=== PATIENT | female | born 1945 | race Hispanic/Latino ===

== ENCOUNTER 2017-11-03 13:21 | Emergency (ER) | payer MEDICARE ==
[~2017-11-03] VITALS: Ht 149.9 cm; Wt 59.0 kg
[~2017-11-03 13:21] MED LIST: LISINOPRIL20 MG PO
[2017-11-03] MEDS ORDERED: LIDOCAINE HCL 1% LOCAL INJ 20 ML VIAL ONE (13:58)
[2017-11-03] MEDS ORDERED: LIDOCAINE HCL 1% LOCAL INJ 20 ML VIAL INJ ONE (14:00)
== END 2017-11-03 14:39 | disposition home or self-care (01) ==
LOC: ER 13:24
DX: L02.415 Cutaneous abscess of right lower limb (principal)
CPT/HCPCS: 10060; 99282; J2001

== ENCOUNTER → 2017-11-14 | Outpatient (CLI) | payer MEDICARE, OTHER | LOC: MAMMO 13:35 | PROVIDERS: ATTEND Family Medicine | DX: Z12.31 Encounter for screening mammogram for malignant neoplasm of breast (principal) | CPT/HCPCS: 77067 ==

== ENCOUNTER 2018-01-05 18:43 | Inpatient (IN) | payer MEDICARE, OTHER ==
[~2018-01-05] VITALS: Ht 147.3 cm; Wt 59.0 kg
[2018-01-05] MEDS: KCL 20MEQ/.9 SOD CHL 1,000 ML IV SCH (01:00)
[2018-01-05] MEDS: LEVOFLOXACIN 500MG/D5W 100ML IV SCH (01:25)
[2018-01-05] MEDS: METRONIDAZOLE 500MG/NS 100ML 100 ML IV SCH (02:00)
--- OUTSIDE RECORDS SUMMARY | 2018-01-05 18:44 | XMS REPORT ---
Author Author [facility] Address Unknown Phone Unavailable Care Team Providers Care Recoater Name Role Phone SHIVANI SOMMER Unavailable Unavailable Problems This patient has no known problems. Allergies, Adverse Reactions, Alerts This patient has no known allergies or adverse reactions. Medications This patient has no known medications. Results Test Description Test Time Test Comments Text Results Atomic Results Result Comments MAMMOGRAPHY DIGITAL SCR BILAT [place] [id number] Patient Name: ARNAV PEMBERTON MR #: [id number] : 1945 Age/Sex: 72/F Req #: [id number] [facility] Physician: Ordered by: KEMAL TOWNSEND, SHIVANI Douglass MD Report #: [id number] Location: MAMMO Room/Bed: Procedure: [id number] MG/MAMMOGRAPHY DIGITAL SCR BILAT Exam Date: Exam Time: 1340 REPORT STATUS: Signed THIS REPORT HAS BEEN AMENDED. #[id number] - [id number] #BILATERAL DIGITAL SCREENING MAMMOGRAM WITH CAD: 11/14/2017 CLINICAL: Routine screening. No prior exams were available for comparison. Current study contains 5 films. The tissue of both breasts is heterogeneously dense. This may lower the sensitivity of mammography. Current study was also evaluated with a Computer Aided Detection (CAD) system. There is an amorphous grouped area of micro calcification in the left breast at 1 o'clock anterior depth. Scattered vascular calcification and areas of macro calcification are present in both breasts. No other significant masses, calcifications, or other findings are seen in either breast. IMPRESSION: INCOMPLETE: NEEDS ADDITIONAL IMAGING EVALUATION The amorphous calcification in the left breast is indeterminate. Spot magnification views are recommended. The patient will be contacted by the Mammography Department to schedule this appointment. It is known that the patient has had recent prior mammograms. If they become available for comparison then these additional views may not be necessary. Chantel Montiel Jr., D.O. cw/:11/30/2017 08:35: 48 Translation Director: Dionne ALBA(R)(Sonali), [facility] letter sent: Additional Imaging Needed Mammogram BI-RADS: 0 Indeterminate AMENDMENT: 12/15/2017 Chantel Montiel Jr., D.O. Comparison to outside mammograms dated 12/08/2015 and 09/12/2013 from [facility] is now possible as they have become available. The calcifications in question were present on the prior studies but have shown a slight increase in the amount. They remain punctate and have a benign appearance. No additional studies are necessary at this time. Amended BI-RADS: 2 Benign letter sent: Compared to Prior B9 Dictated By: CHANTEL MONTIEL DO 1046 Transcribed By: CARL on 9734 COPY TO: SHIVANI SOMMER
--- OUTSIDE RECORDS SUMMARY | 2018-01-05 18:44 | XMS REPORT | Continuity of Care Document ---
Author Author [facility] Organization [facility] Address [address] [place] [address] Phone Unavailable Care Team Providers Care Faculty Administrator Name Role Phone SHIVANI SOMMER PCP Insurance Providers Guarantor Margarita Briseno Address [address] [place] [address] Email PTDECLINED [facility] Policy Number [id number] Subscriber's Name Margarita Briseno Relationship 18 Self / Same As Patient Group Number [id number] Group Name RETIRED Effective Date 11 Advance Directives Directive Response Recorded Date/Time Does the patient have an advance directive? No 04/18/14 9:12pm If yes, is advance directive on file with [facility]? No 04/18/14 9:12pm If not on file with [facility] will patient provide a copy? No 04/18/14 9:12pm Do you have a Directive to Physician? No 11/03/17 2:42pm Do you have a Medical Power of Spool Cleaner Hand? No 11/03/17 2:42pm Do you have an out of hospital Do Not Resuscitate Order? No 11/03/17 2:42pm Do you have any special needs we should be aware of? No 11/03/17 2:42pm Do you have a support person here with you today? Yes 11/03/17 2:42pm Did patient receive Notice of Privacy Practices? Yes 11/03/17 2:42pm Did patient receive patient rights and responsibilities? Yes 11/03/17 2:42pm Problems No problem information available. Medications Current Home Medications Medication Dose Units Route Directions Days Qty Instructions Start Date Lisinopril (Prinavil / Zestril) 20 Mg Tablet 20 Mg Oral Daily Social History Smoking Status Start Date Stop Date Never Smoker Hospital Discharge Instructions No hospital discharge instruction information available. Plan of Care Discharge Date 11/03/17 2:39pm Disposition HOME, SELF-CARE Condition at Discharge Stable Instructions/Education Provided Rash - Nonspecific Forms Provided Work/School Excuse Prescriptions See Medication Section Referrals SHIVANI SOMMER Address: [address] [place] [address] [place] [id number] Functional Status No functional status information available. Allergies, Adverse Reactions, Alerts No allergy information available. Immunizations No immunization information available. Vital Signs Acute Vital Signs Vital Response Date/Time Height 4 ft 11 in 11/03/2017 1:23pm Weight 130 lb 11/03/2017 1:23pm Body Mass Index 26.3 kg/m^2 11/03/2017 1:23pm Results No relevant diagnostic test, laboratory data and/or discharge summary information available. Procedures Procedure Status Date Provider(s) X-ray of chest, two views Active 02/02/17 SHIVANI SOMMER Encounters Encounter Location Arrival/Admit Date Discharge/Depart Date Attending Provider Departed Emergency Room [facility] 11/03/17 1:24pm 2:39pm ANTONY BERMAN MD Registered Clinic [facility] 02/02/17 4:10pm SHIVANI SOMMER
[2018-01-05] MEDS ORDERED: OMEPRAZOLE40 MG PO (19:23)
[2018-01-05] MEDS ORDERED: POTASSIUM CHLO10 ME1 PO (19:23)
[2018-01-05] MEDS ORDERED: METOPROLOL-HCT1 EAC1 PO (19:23)
[2018-01-05 19:43] LABS: BASOPHILS % 0.4 % (0.0-1.0); EOSINOPHILS # (AUTO) 0.1 (0.0-0.4); HEMATOCRIT 34.9 % (34.2-44.1); HEMOGLOBIN 12.7 g/dL (12.0-16.0); LYMPHOCYTES # (AUTO) 2.5 (1.0-3.2); LYMPHOCYTES % 26.1 % (18.0-39.1); MEAN CORPUSCULAR HEMOGLOBIN 38.3 pg (28-32); MEAN CORPUSCULAR HGB CONC 36.4 g/dL (31-35); MEAN CORPUSCULAR VOLUME 105.1 fL (81-99); MONOCYTES # (AUTO) 1.2 (0.2-0.8); MONOCYTES % 12.9 % (4.4-11.3); NEUTROPHILS # (AUTO) 5.6 (2.1-6.9); NEUTROPHILS % 59.2 % (38.7-80.0); PLATELET COUNT 124 x10e3/uL (140-360); RED BLOOD COUNT 3.32 x10e6/uL (3.6-5.1); RED CELL DISTRIBUTION WIDTH 14.8 % (11.7-14.4)
[2018-01-05 20:05] LABS: ALBUMIN/GLOBULIN RATIO 0.5 (0.8-2.0); ANION GAP 14.5 mmol/L (8-16); CALCIUM 9.6 mg/dL (8.4-10.2); CREATININE, SERUM 0.98 mg/dL (0.57-1.11)
[2018-01-05 20:08] LABS: POTASSIUM 2.5 mmol/L (3.5-5.1)
[2018-01-05 20:13] LABS: CREATINE KINASE MB 0.4 ng/mL (0-5.0)
[2018-01-05 20:47] LABS: CLARITY,URINE SL CLOUDY (CLEAR); COLOR,URINE YELLOW (YELLOW); LEUKOCYTE ESTERASE ,URINE NEGATIVE (NEGATIVE); NITRITE,URINE NEGATIVE (NEGATIVE)
[2018-01-05 20:48] LABS: BILIRUBIN,URINE NEGATIVE (NEGATIVE); KETONES,URINE TRACE (NEGATIVE); PROTEIN,URINE DIPSTICK NEGATIVE (NEGATIVE); URINE UROBILINOGEN 1 mg/dL (0.2 - 1)
[2018-01-05] MEDS ORDERED: SODIUM CHLORIDE 0.9% 500ML 500 ML IV ONE (21:00)
[2018-01-05 21:03] LABS: BACTERIA,URINE MANY /HPF; EPITHELIAL CELLS,URINE MODERATE /LPF
[2018-01-05] MEDS ORDERED: POTASSIUM CHLORIDE 20 MEQ TAB CR PO STA (21:25)
[2018-01-05] MEDS ORDERED: POTASSIUM CHLORIDE 20MEQ/100ML 100 ML IV ONE (21:30)
--- NOTE | 2018-01-05 23:20 | Diagnostic Imaging Report ---
EXAM: CT Abdomen and Pelvis WITH contrast INDICATION: Abdominal pain. Weakness COMPARISON: None. TECHNIQUE: Abdomen and pelvis were scanned utilizing a multidetector helical scanner from the lung base to the pubic symphysis after administration of IV contrast. Coronal and sagittal reformations were obtained. Routine protocol was performed. Scan was performed when during portal venous phase. IV CONTRAST: 100 mL of Isovue-370 ORAL CONTRAST: Water RADIATION DOSE: Total DLP: ... mGy*cm Estimated effective dose: (DLP x 0.015 x size factor) mSv COMPLICATIONS: None FINDINGS: LINES and TUBES: None. LOWER THORAX: Unremarkable HEPATOBILIARY: No focal hepatic lesions. No biliary ductal dilation. GALLBLADDER: No radio-opaque stones or sludge. No wall thickening. SPLEEN: No splenomegaly. PANCREAS: No focal masses or ductal dilatation. ADRENALS: No adrenal nodules KIDNEYS/URETERS: Kidneys enhance symmetrically. No hydronephrosis. No cystic or solid mass lesions. No stones. GI TRACT: No abnormal distention, wall thickening, or evidence of bowel obstruction. There are diverticula within the colon with focal evidence of inflammation in the proximal ascending colon, best seen on series 2, image 48 and coronal image 40. Appendix is normal. PELVIC ORGANS/BLADDER: Unremarkable. LYMPH NODES: No lymphadenopathy. VESSELS: There is mild atherosclerotic disease in the aorta and major arterial branches. PERITONEUM / RETROPERITONEUM: No free air or fluid. BONES: There are mild degenerative changes in the lumbar spine. SOFT TISSUES: Unremarkable. IMPRESSION: 1. Colonic diverticulosis with focal diverticulitis at the proximal ascending colon. Signed by: Dr. oDn Hernández M.D. on 01/05/2018 11:16 PM
[2018-01-05] MEDS ORDERED: ONDANSETRON HCL INJ 2 MG/ML VIAL IV PRN (23:45)
[2018-01-05] MEDS ORDERED: MORPHINE SULFATE 2 MG/ML SYR IV PRN (23:45)
[2018-01-06] VITALS (9 sets, daily range): BP systolic 114–136; BP diastolic 55–62
[2018-01-06] MEDS ORDERED: SODIUM CHLORIDE 0.9% 250ML 250 ML ONE (00:41)
[2018-01-06] MEDS: METRONIDAZOLE 500MG/NS 100ML 100 ML IV SCH ×3 (06:23→21:13)
[2018-01-06 07:03] LABS: BASOPHILS % 0.4 % (0.0-1.0); EOSINOPHILS # (AUTO) 0.2 (0.0-0.4); EOSINOPHILS % 2.1 % (0.0-6.0); HEMATOCRIT 32.2 % (34.2-44.1); HEMOGLOBIN 11.5 g/dL (12.0-16.0); LYMPHOCYTES # (AUTO) 2.9 (1.0-3.2); LYMPHOCYTES % 30.6 % (18.0-39.1); MEAN CORPUSCULAR HEMOGLOBIN 38.1 pg (28-32); MEAN CORPUSCULAR HGB CONC 35.7 g/dL (31-35); MEAN CORPUSCULAR VOLUME 106.6 fL (81-99); MONOCYTES # (AUTO) 1.3 (0.2-0.8); MONOCYTES % 13.3 % (4.4-11.3); NEUTROPHILS % 53.3 % (38.7-80.0); PLATELET COUNT 99 x10e3/uL (140-360); RED BLOOD COUNT 3.02 x10e6/uL (3.6-5.1); RED CELL DISTRIBUTION WIDTH 14.9 % (11.7-14.4)
[2018-01-06 07:30] LABS: ALANINE AMINOTRANSFERASE 29 IU/L (0-55); ALBUMIN 2.6 g/dL (3.5-5.0); ALBUMIN/GLOBULIN RATIO 0.6 (0.8-2.0); ALKALINE PHOSPHATASE 214 IU/L (40-150); BLOOD UREA NITROGEN 11 mg/dL (7-26); BUN/CREATININE RATIO 17 (6-25); CALCIUM 8.7 mg/dL (8.4-10.2); CARBON DIOXIDE 26 mmol/L (22-29); CHLORIDE 102 mmol/L (98-107); CREATININE, SERUM 0.66 mg/dL (0.57-1.11); EST GLOMERULAR FILTRATION RATE > 60 ML/MIN (60-); GLUCOSE 102 mg/dL (74-118)
[2018-01-06 07:40] LABS: ANION GAP 12.8 mmol/L (8-16); SODIUM 138 mmol/L (136-145)
[2018-01-06 07:41] LABS: POTASSIUM 2.8 mmol/L (3.5-5.1)
[2018-01-06] MEDS: KCL 20MEQ/.9 SOD CHL 1,000 ML IV SCH ×2 (07:45→15:23)
[2018-01-06] MEDS ORDERED: POTASSIUM CHLORIDE 20 MEQ TAB CR PO STA (07:53)
[2018-01-06] MEDS ORDERED: MAGNESIUM SULFATE 2GM/50ML 50 ML IV ONE (10:45)
[2018-01-06] MEDS ORDERED: POTASSIUM CHLORIDE 20 MEQ TAB CR PO ONE ×3 (12:00→16:00)
[2018-01-07] MEDS: LEVOFLOXACIN 500MG/D5W 100ML IV SCH ×2 (00:30→23:57)
[2018-01-07] MEDS: KCL 20MEQ/.9 SOD CHL 1,000 ML IV SCH ×2 (00:30→07:14)
[2018-01-07 00:47] VITALS: BP 118/67
[2018-01-07 04:00] VITALS: BP 120/68
[2018-01-07] MEDS: METRONIDAZOLE 500MG/NS 100ML 100 ML IV SCH ×3 (05:31→22:00)
[2018-01-07 07:24] LABS: BASOPHILS % 0.4 % (0.0-1.0); EOSINOPHILS # (AUTO) 0.2 (0.0-0.4); EOSINOPHILS % 2.4 % (0.0-6.0); HEMOGLOBIN 10.6 g/dL (12.0-16.0); LYMPHOCYTES # (AUTO) 2.1 (1.0-3.2); LYMPHOCYTES % 26.7 % (18.0-39.1); MEAN CORPUSCULAR HEMOGLOBIN 37.6 pg (28-32); MEAN CORPUSCULAR HGB CONC 34.2 g/dL (31-35); MEAN CORPUSCULAR VOLUME 109.9 fL (81-99); MONOCYTES % 12.2 % (4.4-11.3); NEUTROPHILS # (AUTO) 4.5 (2.1-6.9); NEUTROPHILS % 57.9 % (38.7-80.0); PLATELET COUNT 89 x10e3/uL (140-360); RED BLOOD COUNT 2.82 x10e6/uL (3.6-5.1); RED CELL DISTRIBUTION WIDTH 15.6 % (11.7-14.4)
[2018-01-07 07:49] LABS: ALANINE AMINOTRANSFERASE 27 IU/L (0-55); ALBUMIN 2.4 g/dL (3.5-5.0); ALKALINE PHOSPHATASE 171 IU/L (40-150); BLOOD UREA NITROGEN 6 mg/dL (7-26); BUN/CREATININE RATIO 10 (6-25); CALCIUM 7.8 mg/dL (8.4-10.2); CARBON DIOXIDE 22 mmol/L (22-29); CHLORIDE 111 mmol/L (98-107); CREATININE, SERUM 0.61 mg/dL (0.57-1.11); EST GLOMERULAR FILTRATION RATE > 60 ML/MIN (60-); GLUCOSE 104 mg/dL (74-118); MAGNESIUM 1.6 MG/DL (1.3-2.1); SODIUM 137 mmol/L (136-145)
[2018-01-07 08:00] VITALS: BP 129/87
[2018-01-07 08:27] LABS: THYROID STIMULATING HORMONE 4.664 uIU/mL (0.350-4.940)
[2018-01-07] MEDS ORDERED: ACETAMINOPHEN 325 MG TAB PO PRN (09:45)
[2018-01-07] MEDS ORDERED: ACETAMINOPHEN/CODEINE 300MG - 30MG TAB PO PRN (09:45)
--- NOTE | 2018-01-07 12:49 | Diagnostic Imaging Report ---
EXAM: Complete Abdominal Ultrasound INDICATION: \S\abd ultrasound for elevated LFTs COMPARISON: CT dated 01/05/2018 TECHNIQUE: Transverse and longitudinal images of the upper abdomen were obtained. FINDINGS: Limited study due to bowel gas. Liver: Size: 15.3 cm in the right midclavicular line, normal Appearance: Normal echogenicity, minimal nodular contour Mass: No focal masses Spleen: Size: 10.5 cm in length, normal Echogenicity: Normal Mass: No focal masses Gallbladder: Stones/Sludge: Gallbladder sludge. Wall: 0.2 cm Appearance: No pericholecystic fluid or hydrops. Sonographic Alva's Sign: Negative Bile Ducts: Intrahepatic Ducts: No dilatation Extrahepatic Ducts: Common bile duct measures 0.3 cm, no dilatation Pancreas: Visualized pancreas is unremarkable. Right Kidney: Size: 8.8 cm Echogenicity: Normal Parenchymal thickness: Normal Collecting System: No hydronephrosis Stone: None Cyst/Mass: None Left Kidney: Size: 10.9 cm Echogenicity: Normal Parenchymal thickness: Normal Collecting System: No hydronephrosis Stone: None Cyst/Mass: None Vessels: Aorta: Visualized portions are normal Inferior Vena Cava: Visualized portions are normal Main Portal Vein: 0.9 cm, normal size with hepatopetal flow. Free Fluid: No ascites or pleural effusion IMPRESSION: Gallbladder sludge. No signs of cholecystitis. Minimal hepatic contour nodularity, suggestive of early cirrhotic changes. Signed by: Dr. Emmett Russo MD on 01/07/2018 12:46 PM
[2018-01-07 20:00] VITALS: BP 129/58
[2018-01-08 01:10] VITALS: BP 112/61
[2018-01-08 04:00] VITALS: BP 124/66
[2018-01-08] MEDS: METRONIDAZOLE 500MG/NS 100ML 100 ML IV SCH (06:23)
[2018-01-08 06:59] LABS: BASOPHILS % 0.3 % (0.0-1.0); EOSINOPHILS # (AUTO) 0.2 (0.0-0.4); EOSINOPHILS % 2.4 % (0.0-6.0); HEMATOCRIT 31.5 % (34.2-44.1); HEMOGLOBIN 10.8 g/dL (12.0-16.0); LYMPHOCYTES # (AUTO) 2.4 (1.0-3.2); LYMPHOCYTES % 27.1 % (18.0-39.1); MEAN CORPUSCULAR HGB CONC 34.3 g/dL (31-35); MEAN CORPUSCULAR VOLUME 110.9 fL (81-99); MONOCYTES % 10.9 % (4.4-11.3); NEUTROPHILS # (AUTO) 5.1 (2.1-6.9); PLATELET COUNT 90 x10e3/uL (140-360); RED BLOOD COUNT 2.84 x10e6/uL (3.6-5.1); RED CELL DISTRIBUTION WIDTH 15.7 % (11.7-14.4)
[2018-01-08 07:02] LABS: INR 1.58; PROTHROMBIN TIME 17.7 seconds (11.9-14.5)
[2018-01-08 07:03] LABS: PARTIAL THROMBOPLASTIN TIME 37.9 seconds (23.8-35.5)
[2018-01-08 07:16] LABS: ALANINE AMINOTRANSFERASE 29 IU/L (0-55); ALBUMIN 2.4 g/dL (3.5-5.0); ALKALINE PHOSPHATASE 191 IU/L (40-150); ANION GAP 9.8 mmol/L (8-16); BILIRUBIN,DIRECT 1.1 mg/dL (0.0-0.5); BLOOD UREA NITROGEN 6 mg/dL (7-26); BUN/CREATININE RATIO 9 (6-25); CALCIUM 8.2 mg/dL (8.4-10.2); CARBON DIOXIDE 22 mmol/L (22-29); CHLORIDE 111 mmol/L (98-107); CREATININE, SERUM 0.64 mg/dL (0.57-1.11); EST GLOMERULAR FILTRATION RATE > 60 ML/MIN (60-); GLUCOSE 105 mg/dL (74-118); POTASSIUM 3.8 mmol/L (3.5-5.1); SODIUM 139 mmol/L (136-145)
[2018-01-08 07:57] VITALS: BP 121/70
[2018-01-08 09:00] VITALS: BP 121/70
[2018-01-08 11:48] VITALS: BP 149/77
[2018-01-08] MEDS ORDERED: LEVAQUIN500 MG PO (12:57)
[2018-01-08] MEDS ORDERED: FLAGYL250 MG (12:59)
--- NOTE | 2018-01-08 16:25 | Discharge Summary ---
PRIMARY CARE DOCTOR: Dr. Shivani Sommer. FINAL DIAGNOSIS: Acute proximal ascending colon diverticulitis. SECONDARY DIAGNOSIS 1. Gallbladder sludge. 2. Possible early cirrhosis. 3. Mild liver function test abnormalities. 4. Mild coagulopathy. 5. Mild thrombocytopenia. CONSULTANTS: None. PROCEDURES/STUDIES PERFORMED 1. Computed tomography of the abdomen and pelvis. 2. Abdominal ultrasound. HISTORY: Per H\T\P. HOSPITAL COURSE: Patient was admitted with diverticulitis. IV Levaquin and Flagyl were started. The patient did well, currently tolerating p.o. No pain. Her hypokalemia was repleted. Patient was noted to have mild total bilirubin, alkaline phosphatase and thrombocytopenia. Therefore, abdominal ultrasound was done which is suggestive of early cirrhosis. Upon further questioning, patient drank about 3 beers every night to go to sleep. I have advised her to stop. Patient was seen and examined today. It took 32 minutes total to discharge this patient today. Patient will go home on Levaquin and Flagyl for 5 more days to complete a 1-week course. CONDITION ON DISCHARGE: Improved. DISCHARGE MEDICATIONS: Please see medication reconciliation form. WENDY LIVINGSTON M.D. Job#: [id number] EV cc:SHIVANI SOMMER MD
== END 2018-01-08 14:00 | disposition home or self-care (01) | DRG 392 ==
LOC: ER 18:43 → MED/SURG3 23:41 → ACU 01-08 11:36 → MED/SURG3 01-08 11:36
PROVIDERS: ADMIT Internal Medicine; ATTEND Internal Medicine
DX: K57.32 Diverticulitis of large intestine without perforation or abscess without bleeding (principal); D68.4 Acquired coagulation factor deficiency; K70.30 Alcoholic cirrhosis of liver without ascites; D69.59 Other secondary thrombocytopenia; E83.39 Other disorders of phosphorus metabolism; E87.6 Hypokalemia; E83.42 Hypomagnesemia
CPT/HCPCS: 36415; 74177; 76700; 80048; 80053; 80076; 81001; 82150; 82550; 82553; 83036; 83690; 83735; 84443; 84484; 85025; 85610; 85730; 93005; 96361; 99284; J1956; J3480; J7040; J7050

== ENCOUNTER 2018-12-05 14:06 | Observation (INO) | payer MEDICARE, OTHER ==
[~2018-12-05] VITALS: Ht 147.3 cm; Wt 29.9 kg
[~2018-12-05 14:06] MED LIST changes: +FLAGYL250 MG; +LEVAQUIN500 MG PO; +METOPROLOL-HCT1 EAC1 PO; +OMEPRAZOLE40 MG PO; +POTASSIUM CHLO10 ME1 PO
--- OUTSIDE RECORDS SUMMARY | 2018-12-05 14:09 | XMS REPORT | Encounter Summary ---
Author Organization Unknown Address [address] [place] [address] Phone [phone] Care Team Providers Care Transplant Worker Name Role Phone Dr. Itz Pozo 3 [phone] [facility] 2 [phone] Cliff Christie 107 [phone] Reason for Visit Bilateral ear pain/problem Instructions 1. Body mass index 25-29 - overweight learning about healthy weight 2. Immunization Shingrix Adjuvant Component (PF) intramuscular suspension 3. Lesion of external ear dermatology referral Discussion Note will refer to dermatology Plan of Care Reminders Provider Appointments Return to Office on or around 01/31/2019 Itz Kapoor MD Lab None recorded. Referral Dermatology Referral 11/28/2018 Procedures None recorded. Surgeries None recorded. Imaging None recorded. Medications Name Start Date metoprolol succinate ER 50 mg tablet,extended release 24 hr QD omeprazole 40 mg capsule,delayed release Take 1 capsule every day by oral route. rosuvastatin 10 mg tablet Take 1 tablet every day by oral route as directed for 90 days. Medications Administered None recorded. Vitals Height Weight BMI Blood Pressure 4 ft 11 in 133.8 lbs 27 kg/m2 128/64 mm[Hg] Lab Results Date Name Specimen Result Interpretation Description Value Range Status Address 11/01/2018 CBC W/ Auto Diff Wbc 6.23 x10*3/L 3.98-10.04 x10*3/L Final [facility] Laboratory: [address] Low Rbc 3.02 10*12/L 3.93-5.22 10*12/L Final [facility] Laboratory: [address] Hemoglobin 11.60 g/dL 11.20-15.70 g/dL Final [facility] Laboratory: [address] Low Hematocrit 33.1 % 34.1-44.9 % Final [facility] Laboratory: [address] [place] Mcv 109.6 fL 80.0-100.0 fL Final [facility] Laboratory: [address] [place] Mch 38.4 pg 25.6-32.2 pg Final [facility] Laboratory: [address] [place] Mchc 35.0 g/dL 32.2-35.5 g/dL Final [facility] Laboratory: [address] [place] High RDW-SD 66.4 fL 36.4-46.3 fL Final [facility] Laboratory: [address] [place] Low Platelet Count 101.0 k/uL 182.0-369.0 k/uL Final [facility] Laboratory: [address] [facility] Mpv 13.9 fL 7.5-11.5 fL Final [facility] Laboratory: [address] [place] Neut% 37.4 % 34.0-71.1 % Final [facility] Laboratory: [address] [place] Lymph% 44.6 % 19.3-51.7 % Final [facility] Laboratory: [address] [place], [facility] Mon% 15.7 % 4.7-12.5 % Final [facility] Laboratory: [address] [place] Eos% 1.8 % 0.7-5.8 % Final [facility] Laboratory: [address], [place] Baso% 0.5 % 0.1-1.2 % Final [facility] Laboratory: [address] [place] Neut# 2.3 x10*3/L 1.6-6.1 x10*3/L Final [facility] Laboratory: [address], [place] Lymph# 2.8 x10*3/L 1.2-3.7 x10*3/L Final [facility] Laboratory: [address] [facility] Mon# 1.0 x10*3/L 0.2-0.9 x10*3/L Final [facility] Laboratory: [address] [place] Eos# 0.11 x10*3/L 0.04-0.36 x10*3/L Final [facility] Laboratory: [address] [place] Baso# 0.03 x10*3/L 0.01-0.08 x10*3/L Final [facility] Laboratory: [address] [place] 11/01/2018 CMP, Serum or Plasma Alt 30 U/L 0-55 U/L Final [facility] Laboratory: [address] [place] Ast 65 U/L 5-34 U/L Final [facility] Laboratory: [address] [facility] Low Bun 7.6 mg/dL 9.8-20.1 mg/dL Final [facility] Laboratory: [address] [place] Alk Phos 271 unit/L 40-150 unit/L Final [facility] Laboratory: [address] [place] Glucose 92 mg/dL 70-99 mg/dL Final [facility]: [address] [facility] Low Albumin 2.8 g/dL 3.5-5.0 g/dL Final [facility] Laboratory: [address] [place] [address] Creatinine 0.81 mg/dL 0.57-1.11 mg/dL Final [facility] Laboratory: [address] [facility] eGFR Non- >60 mL/min/1.73m2 Final [facility] Laboratory: [address] [place] Total Bilirubin 2.3 mg/dL 0.2-1.2 mg/dL Final [facility] Laboratory: [address] [facility] e[facility] - >60 mL/min/1.73m2 Final [facility]: [address] [facility] Sodium 141 mEq/L 136-145 mEq/L Final [facility] Laboratory: [address] Potassium 4.2 mEq/L 3.5-5.1 mEq/L Final [facility] Laboratory: [address] [facility] High Chloride 109 mmol/L 98-107 mmol/L Final [facility] Laboratory: [address] [facility] Total Protein 8.7 g/dL 6.4-8.3 g/dL Final [facility] Laboratory: [address] [place] [address] Calcium 9.4 mg/dL 8.4-10.2 mg/dL Final [facility] Laboratory: [address], [place] Co2 23.9 mmol/L 23.0-31.0 mmol/L Final [facility] Laboratory: [address] Damon, [place] Anion Gap 8 calc Final [facility] Laboratory: [address] [facility], [place] 11/01/2018 Lipid Panel, Serum Low Hdl 29 mg/dL 40-60 mg/dL Final [facility] Laboratory: [address] [place] [address], [place] Triglyceride 146 mg/dL 0-149 mg/dL Final [facility] Laboratory: [address] [place] [address], [place] VLDL Calc. 29 mg/dL Final [facility] Laboratory: [address] [place] [address], [place] cholesterol/HDL Ratio 8.1 mg/dL Final [facility] Laboratory: [address] High non-HDL Cholesterol Calc. 205 mg/dL 0-160 mg/dL Final [facility] Laboratory: [address] [place] [address], [place] High Cholesterol 234 mg/dL 0-199 mg/dL Final [facility] Laboratory: [address] [place] [address], [place] High LDL Calc. 176 mg/dL 0-130 mg/dL Final [facility] Laboratory: [address] [place] [address], [place] Allergies Code Code System Name Reaction Severity Status Onset NKDA Problems Name Status Onset Date Source Gastroesophageal Reflux Disease Active 05/28/2018 Hyperlipidemia Active 11/01/2018 Hypertensive Disorder Active Procedures Date Name Performed by 07/31/2015 Colonoscopy Information not available 07/31/1992 Other Information not available 07/31/1974 Hysterectomy (Total) Information not available 07/31/1974 Tubal Ligation Information not available 11/01/2018 MAMMO, Screening, Digital, Bilateral [address] [address] (Work [address]) Vaccine List Vaccine Type influenza, high dose seasonal 05/28/20180.5 mL pneumococcal conjugate PCV 13 05/28/20180.5 mL Social History Smoking Status Never Smoker Past Encounters 11/28/2018 Body Mass Index 25-29 - Overweight; Immunization; Lesion of External Ear Pablo Jimenez MD: [address] [place] [address], Ph. 11/01/2018 Hypertensive Disorder; Hyperlipidemia; Screening for Malignant Neoplasm of Breast; Body Mass Index 25-29 - Overweight; Screening for Malignant Neoplasm of Colon; Alcohol Consumption Screening; Alcohol Intake above Recommended Sensible Limits; Depression Screening Positive; Thrombocytopenic Disorder; Alcohol Abuse; Major Depressive Disorder Itz Kapoor MD: [address] [place] [address], Ph. History of Present Illness Note:9 month h/o crusting lesion R ear lobe<div>6 week h/o painful crusting lesion L ear lobe</div> Review of Systems:ROS as noted in the HPI Review of Systems None recorded. Physical Exam General Adult Exam (Female) Reported By: Patient ENMT: Ears: external ear lesion; bl crusting lesions
--- OUTSIDE RECORDS SUMMARY | 2018-12-05 14:09 | XMS REPORT | Encounter Summary ---
Author Organization Unknown Address [address] [place] [address] Phone [phone] Care Team Providers Care Digital Performance Analyst Name Role Phone Dr. Itz Pozo 3 [phone] Cliff Christie 107 [phone] Reason for Visit Hyperlipidemia; Hypertensive disorder Instructions 1. Hypertensive disorder 2. Hyperlipidemia rosuvastatin 10 mg tablet CMP, serum or plasma lipid panel, serum 3. Screening for malignant neoplasm of breast MAMMO, screening, digital, bilateral 4. Body mass index 25-29 - overweight learning about healthy weight 5. Screening for malignant neoplasm of colon colonoscopy referral 6. Alcohol consumption screening learning about alcohol misuse 7. Alcohol intake above recommended sensible limits alcohol and drug problems: care instructions 8. Depression screening positive learning about depression learning about mood disorders 9. Thrombocytopenic disorder CBC w/ auto diff 10. Alcohol abuse 11. Major depressive disorder Discussion Note: None recorded. Plan of Care Reminders Provider Appointments Return to Office on or around 01/31/2019 Itz Kapoor MD Lab CBC W/ Auto Diff 11/01/[address] [facility] CMP, Serum or Plasma 11/01/[address] [facility] Lipid Panel, Serum 11/01/[address] [facility] Referral Colonoscopy Referral 11/01/2018 Procedures None recorded. Surgeries None recorded. Imaging MAMMO, Screening, Digital, Bilateral 11/01/2018 Medications Name Start Date metoprolol succinate ER 50 mg tablet,extended release 24 hr QD omeprazole 40 mg capsule,delayed release Take 1 capsule every day by oral route. potassium chloride ER 10 mEq capsule,extended release Take 1 capsule every day by oral route. appt reminder 09-26-2018 1:30 PM, Itz Kapoor 11/01/2018 rosuvastatin 10 mg tablet Take 1 tablet every day by oral route as directed for 90 days. Medications Administered None recorded. Vitals Height Weight BMI Blood Pressure 4 ft 11 in 128 lbs 25.9 kg/m2 (1) 140/76 mm[Hg] (2) 130/70 mm[Hg] Lab Results None recorded. Allergies Code Code System Name Reaction Severity Status Onset NKDA Problems Name Status Onset Date Source Gastroesophageal Reflux Disease Active 05/28/2018 Hyperlipidemia Active 11/01/2018 Hypertensive Disorder Active Procedures Date Name Performed by 07/31/2015 Colonoscopy Information not available 07/31/1992 Other Information not available 07/31/1974 Hysterectomy (Total) Information not available 07/31/1974 Tubal Ligation Information not available 11/01/2018 MAMMO, Screening, Digital, Bilateral Information not available Vaccine List Vaccine Type influenza, high dose seasonal 05/28/20180.5 mL pneumococcal conjugate PCV 13 05/28/20180.5 mL Social History Smoking Status Never Smoker Past Encounters 11/01/2018 Hypertensive Disorder; Hyperlipidemia; Screening for Malignant Neoplasm of Breast; Body Mass Index 25-29 - Overweight; Screening for Malignant Neoplasm of Colon; Alcohol Consumption Screening; Alcohol Intake above Recommended Sensible Limits; Depression Screening Positive; Thrombocytopenic Disorder; Alcohol Abuse; Major Depressive Disorder Itz Kapoor MD: [address] [place] [phone], Ph. History of Present Illness Note:F/u on HTN and HLD. Needs refills. Non compliant with meds. Non compliant with diet or exercise. Not checking BPs at home. No side effects with meds. No new concerns. Review of Systems Comprehensive General Adult ROS Reported By: Patient Constitutional: Constitutional: no fever Eyes: Eyes: no vision change ENMT: Ears: no ear pain. Nose: no sinus problems. Mouth/Throat: no sore throat Cardiovascular: Cardiovascular: no chest pain, no shortness of breath when walking, no shortness of breath when lying down, no palpitations, no lightheadedness Respiratory: Respiratory: no cough, no wheezing, no shortness of breath Gastrointestinal: Gastrointestinal: no abdominal pain, no nausea, no vomiting, no constipation, no diarrhea Musculoskeletal: Musculoskeletal: no muscle aches, no muscle weakness, no arthralgias/joint pain, no back pain, no swelling in the extremities Integumentary: Skin: no rashes Neurologic: Neurologic: no loss of consciousness, no headaches Psychiatric: Psych: no depression, no anxiety, no suicidal thoughts, alcohol abuse Endocrine: Endocrine: no fatigue Physical Exam General Adult Exam (male) Reported By: Patient Constitutional: General Appearance: healthy-appearing, overweight. Level of Distress: NAD. Ambulation: ambulating normally Psychiatric: Insight: good judgement. Mental Status: active and alert, normal mood, normal affect. Orientation: to time, to place, to person. Memory: recent memory normal, remote memory normal Eyes: Lids and Conjunctivae: non-injected, no discharge ENMT: Ears: TMs clear. Nose: no nasal discharge. Oropharynx: moist mucous membranes, no erythema Neck: Neck: trachea midline. Lymph Nodes: no cervical LAD Lungs: Respiratory effort: no dyspnea. Auscultation: breath sounds normal Cardiovascular: Heart Auscultation: RRR, normal S1, normal S2, no murmurs Abdomen: Inspection and Palpation: soft, non-distended, no tenderness, no guarding Musculoskeletal:: Motor Strength and Tone: normal, normal tone. Joints, Bones, and Muscles: normal movement of all extremities, no tenderness. Extremities: no edema Neurologic: Gait and Station: normal gait. Cranial Nerves: grossly intact. Coordination and Cerebellum: no tremor Skin: Inspection and palpation: ; mass in both ears. Non tender
[2018-12-05 14:50] LABS: BASOPHILS % 0.4 % (0.0-1.0); EOSINOPHILS # (AUTO) 0.1 (0.0-0.4); EOSINOPHILS % 2.5 % (0.0-6.0); HEMATOCRIT 33.7 % (34.2-44.1); HEMOGLOBIN 11.5 g/dL (12.0-16.0); LYMPHOCYTES # (AUTO) 2.3 (1.0-3.2); LYMPHOCYTES % 41.4 % (18.0-39.1); MEAN CORPUSCULAR HEMOGLOBIN 37.7 pg (28-32); MEAN CORPUSCULAR HGB CONC 34.1 g/dL (31-35); MEAN CORPUSCULAR VOLUME 110.5 fL (81-99); MONOCYTES # (AUTO) 0.5 (0.2-0.8); MONOCYTES % 9.3 % (4.4-11.3); NEUTROPHILS # (AUTO) 2.6 (2.1-6.9); PLATELET COUNT 87 x10e3/uL (140-360); RED BLOOD COUNT 3.05 x10e6/uL (3.6-5.1)
[2018-12-05 15:03] LABS: ALANINE AMINOTRANSFERASE 22 IU/L (0-55); ALBUMIN 2.3 g/dL (3.5-5.0); ALBUMIN/GLOBULIN RATIO 0.5 (0.8-2.0); ALKALINE PHOSPHATASE 225 IU/L (40-150); ANION GAP 12.7 mmol/L (8-16); BLOOD UREA NITROGEN 12 mg/dL (7-26); BUN/CREATININE RATIO 14 (6-25); CALCIUM 9.3 mg/dL (8.4-10.2); CARBON DIOXIDE 21 mmol/L (22-29); CHLORIDE 109 mmol/L (98-107); CREATININE, SERUM 0.85 mg/dL (0.57-1.11); EST GLOMERULAR FILTRATION RATE > 60 ML/MIN (60-); GLUCOSE 169 mg/dL (74-118); POTASSIUM 4.7 mmol/L (3.5-5.1); SODIUM 138 mmol/L (136-145)
[2018-12-05 15:32] LABS: BILIRUBIN,URINE NEGATIVE (NEGATIVE); CLARITY,URINE SL CLOUDY (CLEAR); COLOR,URINE YELLOW (YELLOW); KETONES,URINE NEGATIVE (NEGATIVE); LEUKOCYTE ESTERASE ,URINE NEGATIVE (NEGATIVE); NITRITE,URINE NEGATIVE (NEGATIVE); PROTEIN,URINE DIPSTICK NEGATIVE (NEGATIVE); URINE UROBILINOGEN 1 mg/dL (0.2 - 1)
[2018-12-05 15:40] LABS: BACTERIA,URINE MANY /HPF; EPITHELIAL CELLS,URINE FEW /LPF; WBC,URINE (MAN) 0-5 /HPF (0-5)
[2018-12-05] MEDS ORDERED: DIATRIZOATE MEGL/DIATRIZOA SOD 30 ML BTL PO ONE (17:54)
[2018-12-05] MEDS ORDERED: SODIUM CHLORIDE 0.9% 50ML 50 ML ONE (18:54)
[2018-12-05] MEDS ORDERED: IOPAMIDOL 370 MG/ML 200 ML INFUS..BTL INJ ONE (18:55)
--- NOTE | 2018-12-05 19:10 | NUR ---
RECEIVED REPORT FROM SUZIE RAE. PT GONE TO RADIOLOGY
--- NOTE | 2018-12-05 19:53 | Diagnostic Imaging Report ---
EXAMINATION: CHEST 2 VIEWS INDICATION: Shortness of breath with sputum. COMPARISON: 02/02/2017. FINDINGS: TUBES and LINES: None. LUNGS: Perihilar peribronchial thickening and perihilar streaky densities may reflect viral infection versus reactive airway disease. Patchy density in the retrocardiac region may represent atelectasis. PLEURA: No pleural effusion or pneumothorax. HEART AND MEDIASTINUM: Cardiac size is mildly enlarged. Bilateral hilar fullness may represent reactive lymphadenopathy. The aorta is tortuous and folded. BONES AND SOFT TISSUES: No acute osseous lesion. Soft tissues are unremarkable. UPPER ABDOMEN: No free air under the diaphragm. IMPRESSION: Perihilar, peribronchial thickening and perihilar streaky densities may reflect viral infection versus reactive airway disease. Bilateral hilar reactive lymphadenopathy. Signed by: Dr. Nehal Hearn M.D. on 12/05/2018 7:50 PM
--- NOTE | 2018-12-05 20:04 | Diagnostic Imaging Report ---
EXAM: CT Abdomen and Pelvis WITH contrast INDICATION: Lower abdominal pain. COMPARISON: 01/05/2018. TECHNIQUE: Abdomen and pelvis were scanned utilizing a multidetector helical scanner from the lung base to the pubic symphysis after administration of IV contrast. Coronal and sagittal reformations were obtained. Routine protocol was performed. Scan was performed when during portal venous phase. IV CONTRAST: 100 cc Isovue 370. ORAL CONTRAST: Water RADIATION DOSE: Total DLP: 319.63 mGy*cm Estimated effective dose: (DLP x 0.015 x size factor) mSv COMPLICATIONS: None FINDINGS: LINES and TUBES: None. LOWER THORAX: Unremarkable HEPATOBILIARY: Cirrhotic hepatic morphology. An 8 millimeter low-attenuation lesion in the medial segment of the left hepatic lobe is unchanged, most likely benign in etiology. No biliary ductal dilation. GALLBLADDER: There are stones in the gallbladder. No wall thickening. SPLEEN: No splenomegaly. PANCREAS: No focal masses or ductal dilatation. ADRENALS: No adrenal nodules KIDNEYS/URETERS: Bilateral cortical renal scarring, right greater than left. Kidneys enhance symmetrically. No hydronephrosis. No cystic or solid mass lesions. No stones. GI TRACT: No abnormal distention, wall thickening, or evidence of bowel obstruction. Colonic diverticulosis most markedly involving the sigmoid colon, with evaluation for diverticulitis limited due to the presence of ascites which obscures/simulates fat stranding. PELVIC ORGANS/BLADDER: Mild diffuse urinary bladder wall thickening is likely related to underdistention; cholecystitis is felt to be less likely. LYMPH NODES: No lymphadenopathy. VESSELS: Recanalized umbilical vein. There are perisplenic/perigastric collaterals, with esophageal varices. PERITONEUM / RETROPERITONEUM: Interval development of a small volume ascites. BONES: No acute osseous abnormality. SOFT TISSUES: Unremarkable. IMPRESSION: 1. Interval development of small volume ascites. 2. Colonic diverticulosis most markedly involving the sigmoid colon, with evaluation for diverticulitis limited due to the presence of ascites which obscures/simulates fat stranding. Correlate clinically. 3. Cholelithiasis. No biliary dilatation. 4. Evidence of portal hypertension, with collateral circulation, and esophagogastric varices. Signed by: Dr. Nehal Hearn M.D. on 12/05/2018 8:00 PM
[2018-12-05] MEDS ORDERED: MORPHINE SULFATE 2 MG/ML SYR 1ML IV PRN (20:45)
[2018-12-05] MEDS ORDERED: LEVOFLOXACIN 500MG/D5W 100ML IV SCH (20:45)
[2018-12-05] MEDS ORDERED: METRONIDAZOLE 500MG/NS 100ML IV SCH (20:45)
[2018-12-05] MEDS ORDERED: ONDANSETRON HCL INJ 2MG/ML 2ML 2 MG/ML VIAL IV PRN (20:45)
[2018-12-05] MEDS: METRONIDAZOLE 500MG/NS 100ML 100 ML IV SCH (21:40)
[2018-12-05] MEDS ORDERED: METOPROLOL SUCC50 MG PO (21:56)
[2018-12-05 22:05] VITALS: BP 177/71
[2018-12-05 22:20] VITALS: BP 177/71
[2018-12-05] MEDS: SODIUM CHLORIDE 0.9% 1000ML 1,000 ML IV SCH (22:20)
--- NOTE | 2018-12-05 22:20 | NUR ---
Received pt from er in a stretcher with c/o abd.pain.admission assessment done.aaox4.no resp.distress.on npo.iv #20 g to right ac.iv ns dripping 100ml/hr.abd pain voiced 02/06.oriented to the unit.bed locked and in lowest position.phone and call light within reach.informed to to call for assistance as needed.
[2018-12-05 22:40] VITALS: BP 177/71
[2018-12-05] MEDS: LEVOFLOXACIN 500MG/D5W 100ML 100 ML IV SCH (23:02)
[2018-12-05] MEDS: MORPHINE SULFATE INJ 4 MG/ML INJ 1ML IV PRN (23:23)
[2018-12-06] VITALS (7 sets, daily range): BP systolic 112–117; BP diastolic 53–58
[2018-12-06] MEDS: METRONIDAZOLE 500MG/NS 100ML 100 ML IV SCH ×4 (02:50→21:28)
--- NOTE | 2018-12-06 04:26 | NUR ---
AMBULATED AND VOIDED.NO PAIN VOICED.stable condition.
[2018-12-06] MEDS: SODIUM CHLORIDE 0.9% 1000ML 1,000 ML IV SCH ×2 (05:38→18:01)
[2018-12-06 06:36] LABS: BASOPHILS % 0.6 % (0.0-1.0); EOSINOPHILS # (AUTO) 0.1 (0.0-0.4); EOSINOPHILS % 2.5 % (0.0-6.0); HEMATOCRIT 31.6 % (34.2-44.1); HEMOGLOBIN 10.5 g/dL (12.0-16.0); LYMPHOCYTES # (AUTO) 1.9 (1.0-3.2); LYMPHOCYTES % 35.6 % (18.0-39.1); MEAN CORPUSCULAR HEMOGLOBIN 37.1 pg (28-32); MEAN CORPUSCULAR HGB CONC 33.2 g/dL (31-35); MEAN CORPUSCULAR VOLUME 111.7 fL (81-99); MONOCYTES # (AUTO) 0.7 (0.2-0.8); MONOCYTES % 13.9 % (4.4-11.3); NEUTROPHILS # (AUTO) 2.5 (2.1-6.9); NEUTROPHILS % 47.2 % (38.7-80.0); PLATELET COUNT 79 x10e3/uL (140-360); RED BLOOD COUNT 2.83 x10e6/uL (3.6-5.1); RED CELL DISTRIBUTION WIDTH 14.9 % (11.7-14.4)
--- NOTE | 2018-12-06 06:49 | NUR ---
Report given to the oncoming rn.walking rounds done.stable condition.
[2018-12-06 07:01] LABS: ALANINE AMINOTRANSFERASE 20 IU/L (0-55); ALBUMIN 2.1 g/dL (3.5-5.0); ALBUMIN/GLOBULIN RATIO 0.5 (0.8-2.0); ALKALINE PHOSPHATASE 172 IU/L (40-150); ANION GAP 10.6 mmol/L (8-16); BLOOD UREA NITROGEN 12 mg/dL (7-26); BUN/CREATININE RATIO 16 (6-25); CALCIUM 8.6 mg/dL (8.4-10.2); CARBON DIOXIDE 23 mmol/L (22-29); CHLORIDE 108 mmol/L (98-107); CREATININE, SERUM 0.73 mg/dL (0.57-1.11); EST GLOMERULAR FILTRATION RATE > 60 ML/MIN (60-); GLUCOSE 73 mg/dL (74-118); POTASSIUM 3.6 mmol/L (3.5-5.1); SODIUM 138 mmol/L (136-145)
[2018-12-06] MEDS ORDERED: ACETAMINOPHEN 325 MG TAB PO PRN (07:15)
[2018-12-06] MEDS ORDERED: HYDRALAZINE HCL 20 MG/ML VIAL IV PRN (07:15)
--- NOTE | 2018-12-06 07:19 | NUR ---
RECEIVED PATIENT ASLEEP IN BED, NO SIGNS OF DISTRESS AT THIS TIME. BED LOW, WHEELS LOCKED, SIDE RAILS X2, CALL LIGHT IN REACH. WILL CONTINUE TO MONITOR PATIENT.
[2018-12-06] MEDS: PANTOPRAZOLE SOD 40 MG TABEC PO SCH ×2 (07:30→07:57)
[2018-12-06] MEDS ORDERED: FAMOTIDINE 20 MG TAB PO SCH (07:30)
[2018-12-06] MEDS ORDERED: LORAZEPAM INJ 2 MG/ML VIAL IV PRN (07:45)
--- NOTE | 2018-12-06 09:00 | NUR ---
PATIENT A/O X3, EVEN RESPIRATIONS ON RA. BOWEL SOUNDS ACTIVE, SKIN INTACT. 1+ PITTING EDEMA TO BILAT FEET. PATIENT AMBULATORY VOIDS IN TOILET. PATIENT NPO AT THIS TIME. RIGHT AC 20 GAUGE IV WITH NS @ 100 CC/HR. NO SIGNS OF DISTRESS. VITAL SIGNS STABLE, WILL CONTINUE TO MONITOR PATIENT. EDUCATED PATIENT TO CALL FOR ASSISTANCE.
--- NOTE | 2018-12-06 11:50 | NUR ---
SPOKE WITH BIOINFORMATICS ASSOCIATE GENA. KEEP PATIENT NPO AT THIS TIME FOR POSSIBLE PARACENTESIS.
--- NOTE | 2018-12-06 12:36 | Diagnostic Imaging Report ---
EXAM: Limited abdominal ultrasound. INDICATION: Evaluate for ascites COMPARISON: CT 12/05/2018. TECHNIQUE: Transverse and longitudinal images of the 4 quadrants of the abdomen to evaluate for ascites was performed. FINDINGS: Small volume ascites is identified in all 4 quadrants. IMPRESSION: Small volume ascites. Signed by: Dr. Radha Atkinson MD on 12/06/2018 11:58 AM
[2018-12-06] MEDS ORDERED: CRESTOR10 MG PO (12:40)
[2018-12-06] MEDS ORDERED: ONDANSETRON HCL 4 MG ORAL DISINTEGRATING TAB PO PRN (13:45)
[2018-12-06] MEDS ORDERED: LORAZEPAM 0.5 MG TAB PO PRN (14:15)
--- NOTE | 2018-12-06 15:03 | NUR ---
Nutrition Screen Note RD Recommendation for Physician: -Continue current diet as ordered -Pt was not interested in any oral nutrition supplements -Rec MVi w/ thiamine and folic acid for alcoholism Plan of Care: RD following, monitoring for tolerance and adequacy Nutrition reason for involvement: Diagnosis Primary Diagnose(s): ascites, cirrhosis PMH: diverticulitis, cirrhosis, HTN, kidney stones Ht: 58in Wt: 130lb BMI: 27.2kg/m2 IBW: 90lb RD Assessment: (12/06) Chart reviewed. Labs and meds reviewed. 73yo F, who was admitted for abdominal discomfort. Abdomen US showed small volume ascites. Visited pt in the room. Pt reported poor appetite with decreased meal intake for 3 weeks. Unknown weight loss hx due to ascites and old medical record showed same weight (130lbs) on 12/2017. No physical sign of muscle and fat loss upon NFPA. Pt stated I am just not hungry. Pt still drinks about 2-3 beer every day. LBM 12/06. Pt denied any chewing or swallowing issue. Discussed alcohol cessation. Will continue to monitor and follow. Current Diet: cardiac diet Malnutrition Evaluation (12/06) The patient does not meet criteria for a specified degree of malnutrition at this time. Will re-evaluate at follow-up as appropriate. Diet Education Needs Assessment: Diet education not indicated. Nutrition Care Level: low Signed: Savannah Recinos MS, RD, LD
[2018-12-06 15:39] LABS: INR 1.43
[2018-12-06 15:40] LABS: PARTIAL THROMBOPLASTIN TIME 39.2 seconds (23.8-35.5)
--- NOTE | 2018-12-06 16:34 | NUR ---
PARACENTESIS BEING DONE AT THIS TIME AT BEDSIDE. PATIENT IN STABLE CONDITION. WILL CONTINUE TO MONITOR PATIENT.
--- NOTE | 2018-12-06 17:10 | NUR ---
PARACENTESIS COMPLETE. PATIENT TOLERATED WELL, NO SIGNS OF DISTRESS.
--- NOTE | 2018-12-06 17:24 | Consultation ---
DATE OF CONSULTATION: 12/06/2018 Psychiatric Consultation REASON FOR CONSULTATION: To evaluate the patient's mood and alcohol abuse. HISTORY OF PRESENT ILLNESS: The patient is a 73-year-old female admitted to the hospital for ascites and cirrhosis. Psychiatric consultation is called to evaluate the patient's mood. As per medical record, the patient has history of hypertension, urinary calculi, and abnormal mammogram. She presented to the ER for abdominal pain for last two weeks. The patient is found to be in the room. She is alert, awake, and oriented to situation. She becomes tearful stating that she has been feeling stressed, depressed and anxious due to generalized life stressor. She also reports feeling overwhelmed with her responsibility of being a mom. The patient states that she is feeling hopeless and helpless, but denies any passive wish. She denies any suicidal or homicidal ideation. She denies any hallucination. She reports feeling forgetful due to having to take care of many things at home. She reports poor sleep and poor appetite. The patient also reports she has been drinking every day, usually 2 or 3 beers a night, last was 2 days ago. No obvious tremor seen at this time. She is not confused at this time and she is calm and cooperative. PAST PSYCHIATRIC HISTORY: The patient denies past psychiatric history. She denies past suicide attempts. She denies drug use, but admits to drinking alcohol every day. FAMILY HISTORY: The patient denies. SOCIAL HISTORY: The patient states she lives with her granddaughter. MENTAL STATUS EXAM: The patient is an elderly female. She is alert, awake and oriented to situation. Her mood is depressed and anxious. She denies any suicidal or homicidal ideation. She denies any hallucination. Psychomotor state is passive. Affect is congruent with mood. No delusion elicited. Thought process is concrete. Insight and judgment are fair. Memory appears to be grossly intact. CURRENT MEDICATIONS: 1. Metronidazole/sodium chloride. 2. Protonix. 3. Morphine. 4. Levofloxacin/dextrose. 5. Sodium chloride. 6. Ondansetron. 7. Crestor. 8. Ativan 1 mg IV q.6 hours p.r.n. for withdrawal. 9. Hydralazine. 10. Acetaminophen. LABORATORY DATA: Current labs; WBC is 5.25, RBC 2.83, hemoglobin 10.5, hematocrit 31.6, platelets 79. Sodium 138, potassium 3.6, chloride 108, CO2 23, BUN 12, creatinine 0.73, AST is 53, ALT is 20. ASSESSMENT: 1. Major depressive disorder, single episode, moderate. 2. Alcohol abuse/dependency. PLAN: 1. Continue with Ativan 1 mg IV q.6 hours p.r.n. for withdrawal. 2. Add Remeron 15 mg p.o. at bedtime. 3. Add Ativan 0.5 mg p.o. q.6 hours p.r.n. for anxiety. 4. Monitor for mood. 5. Supportive therapy. 6. Recommend total abstinence from alcohol and staff genetic counselor given. 7. The patient states she would like the medication to help her stay sober. Thank you for this consultation. Dictated by Katerin Payne PA-C Dahlia Ko MD QTV/MODL /[id number]
--- NOTE | 2018-12-06 17:56 | Diagnostic Imaging Report ---
Procedure: Ultrasound-guided diagnostic and therapeutic paracentesis computer terminal operator: Radha Atkinson MD Pre-operative diagnosis: Small to moderate volume ascites. Post-operative diagnosis: Resolution of ascites. Local sedation. 10 cc of Lidocaine 1% for local anesthesia Additional medications: None. Estimated blood loss: None. Specimens: 1100 cc of cloudy fluid Implants: None TECHNIQUE/FINDINGS: Informed consent was obtained from the patient and documented in the medical record. The patient was placed in the supine position. Initial ultrasound demonstrated small to moderate volume ascites in a midline lower abdominal/pelvic location. The midline lower abdomen was prepped and draped in standard sterile fashion. 1% lidocaine was infiltrated into the skin and subcutaneous tissues for local anesthesia. Then under continuous sonographic guidance, a 5 Fr catheter was advanced into the peritoneal space. The catheter was connected to vacuum bottle with subsequent evacuation of 1100 cc of cloudy fluid. The catheter was removed. Sterile dressing was applied. Sample was sent to the lab. The patient tolerated the procedure well. IMPRESSION: Ultrasound-guided diagnostic and therapeutic paracentesis with removal of 1100 cc of cloudy fluid. Signed by: Dr. Radha Atkinson MD on 12/06/2018 5:53 PM
--- NOTE | 2018-12-06 20:10 | NUR ---
Aaox4.ambulates .voided.assessment done.no resp.distress.abd.pain voiced3/10.but denied pain medication.bed locked and in lowest position.phone and call light within reach.informed to call for assistance as needed.
[2018-12-06] MEDS: CRESTOR 10MG PO SCH (20:57)
[2018-12-06] MEDS: LEVOFLOXACIN 500MG/D5W 100ML 100 ML IV SCH (20:57)
[2018-12-06] MEDS ORDERED: MIRTAZAPINE 15 MG TAB PO SCH (21:00)
[2018-12-07] VITALS (8 sets, daily range): BP systolic 112–139; BP diastolic 55–71
[2018-12-07 01:20] LABS: BODY FLUID APPEARANCE CLOUDY; BODY FLUID COLOR YELLOW; BODY FLUID TYPE PERITONEAL
[2018-12-07 01:21] LABS: RBC,BODY FLUID 10989 cells/uL; WBC,BODY FLUID 4604 cells/uL
[2018-12-07 01:24] LABS: LYMPHOCYTES,BODY FLUID 98 %; MONO/MACROPHG,BODY FLUID 2 %; NEUTROPHILS,BODY FLUID 0 %
[2018-12-07] MEDS: CEFTRIAXONE SOD 1 GM/NS 50 ML 50 ML IV SCH ×2 (01:30→14:15)
[2018-12-07] MEDS: SODIUM CHLORIDE 0.9% 1000ML 1,000 ML IV SCH (03:20)
[2018-12-07] MEDS: METRONIDAZOLE 500MG/NS 100ML 100 ML IV SCH ×4 (03:25→21:23)
--- NOTE | 2018-12-07 03:30 | NUR ---
Blood osmin and sent to the lab.
[2018-12-07 03:49] LABS: BASOPHILS % 0.4 % (0.0-1.0); EOSINOPHILS # (AUTO) 0.1 (0.0-0.4); EOSINOPHILS % 2.2 % (0.0-6.0); HEMATOCRIT 28.5 % (34.2-44.1); HEMOGLOBIN 9.9 g/dL (12.0-16.0); LYMPHOCYTES # (AUTO) 1.8 (1.0-3.2); LYMPHOCYTES % 33.3 % (18.0-39.1); MEAN CORPUSCULAR HEMOGLOBIN 38.2 pg (28-32); MEAN CORPUSCULAR HGB CONC 34.7 g/dL (31-35); MONOCYTES # (AUTO) 0.8 (0.2-0.8); MONOCYTES % 14.5 % (4.4-11.3); NEUTROPHILS # (AUTO) 2.7 (2.1-6.9); NEUTROPHILS % 49.4 % (38.7-80.0); PLATELET COUNT 78 x10e3/uL (140-360); RED BLOOD COUNT 2.59 x10e6/uL (3.6-5.1); RED CELL DISTRIBUTION WIDTH 15.3 % (11.7-14.4)
[2018-12-07 04:10] LABS: ALANINE AMINOTRANSFERASE 18 IU/L (0-55); ALBUMIN 1.9 g/dL (3.5-5.0); ALKALINE PHOSPHATASE 153 IU/L (40-150); ANION GAP 10.8 mmol/L (8-16); BLOOD UREA NITROGEN 12 mg/dL (7-26); BUN/CREATININE RATIO 16 (6-25); CARBON DIOXIDE 21 mmol/L (22-29); CHLORIDE 112 mmol/L (98-107); CREATININE, SERUM 0.75 mg/dL (0.57-1.11); EST GLOMERULAR FILTRATION RATE > 60 ML/MIN (60-); GLUCOSE 80 mg/dL (74-118); MAGNESIUM 1.5 MG/DL (1.3-2.1); POTASSIUM 3.8 mmol/L (3.5-5.1); SODIUM 140 mmol/L (136-145)
[2018-12-07 04:31] LABS: FERRITIN 105.34 ng/mL (4.63-204.00)
[2018-12-07 05:11] LABS: FOLATE 13.8 ng/mL (7.0-15.4)
--- NOTE | 2018-12-07 06:50 | NUR ---
Report given to the oncoming rn.walking rounds done.stable condition.
[2018-12-07] MEDS: PANTOPRAZOLE SOD 40 MG TABEC PO SCH (08:30)
--- NOTE | 2018-12-07 09:16 | NUR ---
WITH STANDBY ASSIST, PT OOB TO BR TO "CLEAN UP", CLEAN GOWN AND SOCKS GIVEN, CALL STRING WITHIN REACH
[2018-12-07] MEDS ORDERED: HYDROXYZINE HCL 10 MG TAB PO PRN (15:45)
[2018-12-07] MEDS ORDERED: LEVOFLOXACIN 500 MG TAB PO SCH (18:00)
--- NOTE | 2018-12-07 20:14 | Progress Note ---
DATE: 12/07/2018 Psychiatric Progress Note SUBJECTIVE: The patient is surrounded by family members. She wanted Psychiatry to speak to her alone. The patient states that she has been feeling depressed. She becomes tearful. She does not know why she is feeling this way. She is having intermittent anxiety. She reports poor sleep last night. She reports poor appetite. She denies any problem with hallucination. She denies any suicidal ideation. She denies any side effects from medications. The patient is asking about her hydroxyzine p.r.n. ASSESSMENT AND PLAN: 1. Major depressive disorder with syncopal episode, moderate. 2. Alcohol abuse/dependency. 3. Increase Remeron to 30 mg p.o. at bedtime. 4. Discontinue Ativan p.r.n. p.o. 5. Add Atarax p.r.n. p.o. 6. Continue p.r.n. Ativan IV b.i.d. 7. Monitor for mood. 8. Supportive therapy. 9. Recommend outpatient psychiatry. Dictated by Katerin Payne PA-C Dahlia Ko MD QTV/MODL /[id number]
[2018-12-07] MEDS: MORPHINE SULFATE INJ 4 MG/ML INJ 1ML IV PRN (20:30)
[2018-12-07] MEDS ORDERED: MIRTAZAPINE 15 MG TAB PO SCH (21:00)
[2018-12-07] MEDS: CRESTOR 10MG PO SCH (21:23)
[2018-12-08 01:09] VITALS: BP 118/56
[2018-12-08] MEDS: CEFTRIAXONE SOD 1 GM/NS 50 ML 50 ML IV SCH ×2 (01:31→13:15)
--- NOTE | 2018-12-08 01:40 | NUR ---
UPON ROUNDS PATIENT RESTING COMFORTABLY, NO DISTRESS OBSERVED. ANTIBIOTIC INFUSING AT 100 ML/HR, PATIENT DENIES PAIN AT THIS TIME. BOTH SIDE RAILS ARE UP, BED LOW, CALL LIGHT WITHIN REACH WILL CONTINUE TO MONITOR.
[2018-12-08] MEDS: METRONIDAZOLE 500MG/NS 100ML 100 ML IV SCH ×2 (02:09→10:00)
[2018-12-08 04:21] LABS: BASOPHILS % 0.5 % (0.0-1.0); EOSINOPHILS # (AUTO) 0.1 (0.0-0.4); EOSINOPHILS % 2.3 % (0.0-6.0); HEMATOCRIT 29.6 % (34.2-44.1); HEMOGLOBIN 10.4 g/dL (12.0-16.0); LYMPHOCYTES # (AUTO) 2.4 (1.0-3.2); LYMPHOCYTES % 38.3 % (18.0-39.1); MEAN CORPUSCULAR HEMOGLOBIN 38.2 pg (28-32); MEAN CORPUSCULAR HGB CONC 35.1 g/dL (31-35); MEAN CORPUSCULAR VOLUME 108.8 fL (81-99); MONOCYTES # (AUTO) 0.9 (0.2-0.8); MONOCYTES % 13.9 % (4.4-11.3); NEUTROPHILS # (AUTO) 2.8 (2.1-6.9); NEUTROPHILS % 44.7 % (38.7-80.0); PLATELET COUNT 79 x10e3/uL (140-360); RED BLOOD COUNT 2.72 x10e6/uL (3.6-5.1); RED CELL DISTRIBUTION WIDTH 15.1 % (11.7-14.4)
[2018-12-08 04:40] LABS: ANION GAP 9.4 mmol/L (8-16); BLOOD UREA NITROGEN 9 mg/dL (7-26); BUN/CREATININE RATIO 13 (6-25); CARBON DIOXIDE 22 mmol/L (22-29); CHLORIDE 111 mmol/L (98-107); CREATININE, SERUM 0.71 mg/dL (0.57-1.11); EST GLOMERULAR FILTRATION RATE > 60 ML/MIN (60-); GLUCOSE 73 mg/dL (74-118); MAGNESIUM 1.4 MG/DL (1.3-2.1); POTASSIUM 3.4 mmol/L (3.5-5.1); SODIUM 139 mmol/L (136-145)
[2018-12-08 05:13] VITALS: BP 138/63
[2018-12-08 07:21] VITALS: BP 123/60
[2018-12-08] MEDS ORDERED: POTASSIUM CHLORIDE 20 MEQ TAB CR PO STA (07:56)
[2018-12-08] MEDS ORDERED: MIRTAZAPINE15 MG PO (08:03)
[2018-12-08] MEDS ORDERED: HYDROXYZINE HCL10 MG PO (08:03)
[2018-12-08] MEDS ORDERED: METRONIDAZOLE500 MG PO ×2 (08:09→08:41)
[2018-12-08] MEDS ORDERED: CEFTIN PO ×2 (08:09→08:41)
[2018-12-08] MEDS: PANTOPRAZOLE SOD 40 MG TABEC PO SCH (08:30)
[2018-12-08] MEDS ORDERED: REMERON30 MG PO (08:43)
[2018-12-08 10:12] VITALS: BP 123/60
--- NOTE | 2018-12-08 13:02 | NUR ---
SPOKE WITH GENA SLIP COVER ESTIMATOR WITH MD GARIBAY, MADE AWARE THAT PT C/O "SOB WHEN LYING DOWN", CHECKED PT SATS ON RA AT 96%, NO DISTRESS NOTED, DISCHARGE ORDERS TO BE FOLLOWED
[2018-12-08 13:39] VITALS: BP 128/60
--- NOTE | 2018-12-08 22:26 | Discharge Summary ---
ADMISSION DIAGNOSES: Ascites secondary to cirrhosis, hypertension, hyperlipidemia, gastroesophageal reflux disease, anxiety, depression, EtOH abuse, thrombocytopenia. DISCHARGE DIAGNOSES: Ascites secondary to cirrhosis, hypertension, hyperlipidemia, gastroesophageal reflux disease, anxiety, depression, EtOH abuse, thrombocytopenia, rule out gastrointestinal bleed, rule out urinary tract infection. PAST MEDICAL HISTORY: Hypertension, GERD, hyperlipidemia, EtOH abuse. PAST SURGICAL HISTORY: Tubal ligation, kidney stone surgery, and left breast biopsy. FAMILY HISTORY: The patient's daughter has diabetes. The patient's daughter also had a stroke. SOCIAL HISTORY: The patient admits to drinking about 3 beers a day for the last 12 years to help her go to sleep. HOSPITAL COURSE: A 73-year-old female complains of constant left flank and abdominal pressure that began 2 weeks ago. She denies nausea, vomiting, diarrhea, and fever. Pain is worse with movement and improved with lying down. She admits to drinking 3 beers a day to help her sleep. On admission, the patient had a CT of the abdomen that showed small volume ascites, colonic diverticulosis, cholelithiasis, evidence of portal hypertension with collateral circulation, and esophagogastric varices. Chest x-ray showed perihilar peribronchial thickening and perihilar streaky densities, may reflect viral infection versus reactive airway disease. The patient had an ultrasound-guided paracentesis with 1.1 L of cloudy fluid removed. Ascitic fluid showed 4604 wbc count. Stool for blood was negative. Urine culture negative. Psych doctor was consulted for anxiety, depression, alcohol abuse. The patient was started on Remeron and Atarax. GI was consulted, who ordered a CEA, AFP, and TB test. He is wanting to rule out malignancy and TB peritonitis. As all of those tests are pending and will take multiple days to come back, recommended the patient to discharge home and follow up with him next week. If anything is positive, she can be readmitted to the hospital at that point. The patient was discharged home with hydroxyzine, Remeron, , and Flagyl for 8 more days. The patient understands discharge instructions and agrees to plan. Vital signs stable and the patient afebrile. Dictated by Nessa Bucio, MIRIAN MD ALEJANDRA Limon/MODL /[id number]
== END 2018-12-08 14:44 | disposition home or self-care (01) ==
LOC: ER 14:06 → INTOOBSV 20:39 → ERHOLD 20:39 → MED/SURG 22:06
PROVIDERS: ADMIT Internal Medicine; ATTEND Internal Medicine
DX: K74.60 Unspecified cirrhosis of liver (principal); R18.8 Other ascites; K57.32 Diverticulitis of large intestine without perforation or abscess without bleeding; I10 Essential (primary) hypertension; Z87.442 Personal history of urinary calculi; K80.80 Other cholelithiasis without obstruction; K21.9 Gastro-esophageal reflux disease without esophagitis; E78.5 Hyperlipidemia, unspecified; Z83.3 Family history of diabetes mellitus; Z82.3 Family history of stroke; D69.6 Thrombocytopenia, unspecified; F41.9 Anxiety disorder, unspecified; F32.1 Major depressive disorder, single episode, moderate; F10.20 Alcohol dependence, uncomplicated
CPT/HCPCS: 36415 ×4; 49083; 71046; 74177; 74470; 76705; 80048 ×2; 80053 ×2; 80076; 81001; 82105; 82270; 82378; 82607; 82728; 82746; 82945; 83540; 83615; 83690; 83735 ×2; 83880 ×2; 84157; 84466; 84478; 85025 ×4; 85610; 85730; 87070; 87086; 87205; 88112; 88305; 89051; 96365; 96367; 99284; C1729; G0378 ×4; J0696 ×2; J1956 ×2; J2270 ×2; J2405; J7030 ×3; Q9967; S0164 ×3

== ENCOUNTER 2018-12-11 08:43 | Inpatient (IN) | payer MEDICARE, OTHER ==
[2018-12-11] VITALS (7 sets, daily range): BP systolic 111–130; BP diastolic 56–72
[~2018-12-11] VITALS: Ht 149.9 cm; Wt 58.1 kg
[~2018-12-11 08:43] MED LIST changes: +CEFTIN PO; +CRESTOR10 MG PO; +HYDROXYZINE HCL10 MG PO; +METOPROLOL SUCC50 MG PO; +METRONIDAZOLE500 MG PO; +MIRTAZAPINE15 MG PO; +REMERON30 MG PO
[2018-12-11 09:38] LABS: CLARITY,URINE SL CLOUDY (CLEAR); COLOR,URINE BROWN (YELLOW); LEUKOCYTE ESTERASE ,URINE 1+ (NEGATIVE); NITRITE,URINE POSITIVE (NEGATIVE); PROTEIN,URINE DIPSTICK 2+ (NEGATIVE)
[2018-12-11 09:39] LABS: BILIRUBIN,URINE 3+ (NEGATIVE); KETONES,URINE 1+ (NEGATIVE); URINE UROBILINOGEN 1 mg/dL (0.2 - 1)
[2018-12-11 09:43] LABS: BASOPHILS % 0.5 % (0.0-1.0); EOSINOPHILS # (AUTO) 0.1 (0.0-0.4); EOSINOPHILS % 1.2 % (0.0-6.0); LYMPHOCYTES # (AUTO) 2.1 (1.0-3.2); LYMPHOCYTES % 27.7 % (18.0-39.1); MEAN CORPUSCULAR HEMOGLOBIN 37.6 pg (28-32); MEAN CORPUSCULAR HGB CONC 35.3 g/dL (31-35); MEAN CORPUSCULAR VOLUME 106.6 fL (81-99); MONOCYTES % 13.5 % (4.4-11.3); NEUTROPHILS # (AUTO) 4.2 (2.1-6.9); NEUTROPHILS % 56.8 % (38.7-80.0); PLATELET COUNT 105 x10e3/uL (140-360); RED BLOOD COUNT 3.19 x10e6/uL (3.6-5.1); RED CELL DISTRIBUTION WIDTH 15.1 % (11.7-14.4)
[2018-12-11] MEDS ORDERED: MORPHINE SULFATE INJ 4 MG/ML INJ 1ML IV NR (09:45)
[2018-12-11] MEDS ORDERED: ONDANSETRON HCL INJ 2MG/ML 2ML 2 MG/ML VIAL IV NR (09:45)
[2018-12-11 09:48] LABS: BACTERIA,URINE FEW /HPF; EPITHELIAL CELLS,URINE MANY /LPF
[2018-12-11 09:57] LABS: INR 1.66; PROTHROMBIN TIME 20.2 seconds (11.9-14.5)
[2018-12-11 10:06] LABS: ALANINE AMINOTRANSFERASE 24 IU/L (0-55); ALBUMIN 2.4 g/dL (3.5-5.0); ALBUMIN/GLOBULIN RATIO 0.5 (0.8-2.0); ALKALINE PHOSPHATASE 203 IU/L (40-150); ANION GAP 10.2 mmol/L (8-16); BLOOD UREA NITROGEN 8 mg/dL (7-26); BUN/CREATININE RATIO 10 (6-25); CALCIUM 8.7 mg/dL (8.4-10.2); CARBON DIOXIDE 21 mmol/L (22-29); CHLORIDE 109 mmol/L (98-107); CREATININE, SERUM 0.81 mg/dL (0.57-1.11); EST GLOMERULAR FILTRATION RATE > 60 ML/MIN (60-); GLUCOSE 82 mg/dL (74-118); POTASSIUM 3.2 mmol/L (3.5-5.1); SODIUM 137 mmol/L (136-145)
[2018-12-11 10:26] LABS: CREATINE KINASE 54 IU/L (29-168); MAGNESIUM 1.4 MG/DL (1.3-2.1)
[2018-12-11] MEDS ORDERED: SODIUM CHLORIDE 0.9% 50ML 50 ML ONE (10:42)
[2018-12-11] MEDS ORDERED: IOPAMIDOL 370 MG/ML 200 ML INFUS..BTL INJ ONE (10:42)
--- NOTE | 2018-12-11 11:12 | Diagnostic Imaging Report ---
EXAMINATION: CT of the abdomen and pelvis with contrast. TECHNIQUE: Spiral CT images of the abdomen and pelvis were performed from the lung bases to the lesser trochanters after the intravenous administration of 100 cc Isovue-370. Coronal and sagittal reformatted images were obtained. COMPARISON: 12/05/2018 CLINICAL HISTORY:Right-sided abdominal pain, cirrhosis, ascites DISCUSSION: ABDOMEN/PELVIS: LOWER THORAX:Subsegmental atelectasis in the right middle lobe and bilateral lower lobes. Trace right pleural effusion. HEPATOBILIARY: 8 mm lesion in segment 4 is unchanged and remains too small to further characterize though likely benign. Nodular hepatic contour with relative hypertrophy of the left and caudate lobes. No additional focal hepatic lesion. No intrahepatic biliary ductal dilatation. Multiple radiopaque calculi in the dependent portion of the gallbladder. SPLEEN: No splenomegaly. PANCREAS: No focal masses or ductal dilatation. ADRENALS: No adrenal nodules. KIDNEYS/URETERS: Lobulated contour of the right kidney may be congenital or postinflammatory. Left kidney is unremarkable. No hydronephrosis or calculi. PELVIC ORGANS/BLADDER: Urinary bladder is collapsed and poorly evaluated. Uterus is anteflexed and appears normal. No adnexal mass. Tubal ligation devices. PERITONEUM/RETROPERITONEUM: Diffuse ascites, of average attenuation 0-5 Hounsfield units, similar in quantity to that described on 12/05/2018. No pneumoperitoneum. LYMPH NODES: No pelvic sidewall, retroperitoneal, or mesenteric lymphadenopathy. Mildly enlarged portacaval lymph node is unchanged. VESSELS: Abdominal aorta, major branch vessels, and iliac arterial systems are well-visualized and patent. The right hepatic artery is replaced to the superior mesenteric artery. Recanalization of the umbilical vein is noted, along with small gastric fundal and esophageal varices. Portal vein, splenic vein, and central superior mesenteric vein are patent. GI TRACT: As before, there are multiple diverticula along the descending and sigmoid colon. No gross wall thickening or distention. The appendix is poorly visualized. There is no small bowel dilatation to suggest obstruction. BONES AND SOFT TISSUE: Mild anasarca. No osseous destructive lesions. Multilevel degenerative disc changes and facet arthropathy of the thoracolumbar spine. IMPRESSION: Cirrhosis with portal hypertension evidenced by ascites, gastric-esophageal varices, and umbilical venous recanalization. Large bowel diverticulosis without specific findings of diverticulitis. Cholelithiasis without pericholecystic inflammation. Overall, similar findings to those described on 12/05/2018. Signed by: Dr. Stefan Sandoval M.D. on 12/11/2018 11:08 AM
[2018-12-11] MEDS ORDERED: CEFEPIME 1GM/NS 0.9% 50 ML 50 ML IV SCH (12:00)
[2018-12-11 12:29] LABS: AMYLASE 39 U/L (25-125); LIPASE 30 U/L (8-78)
[2018-12-11] MEDS ORDERED: MORPHINE SULFATE 2 MG/ML SYR 1ML IV PRN (12:30)
[2018-12-11] MEDS ORDERED: ONDANSETRON HCL INJ 2MG/ML 2ML 2 MG/ML VIAL IV PRN (12:30)
[2018-12-11] MEDS ORDERED: MORPHINE SULFATE INJ 4 MG/ML INJ 1ML IV PRN (12:45)
[2018-12-11] MEDS ORDERED: HYDROXYZINE HCL 10 MG TAB PO PRN (14:15)
[2018-12-11] MEDS ORDERED: ACETAMINOPHEN 325 MG TAB PO PRN (14:45)
[2018-12-11] MEDS ORDERED: HYDRALAZINE HCL 20 MG/ML VIAL IV PRN (14:45)
--- NOTE | 2018-12-11 14:47 | NUR ---
Patient transferred at this time by radiology nurse to have ultrasounded guided paracentesis.
--- NOTE | 2018-12-11 16:27 | Diagnostic Imaging Report ---
Date and Time: 12/11/2018 Procedure: Ultrasound-guided paracentesis shotgun shell reprinting unit operator: Dr. Sandoval Pre-operative diagnosis: Ascites Post-operative diagnosis: Ascites Conscious Sedation: None The patient's heart rate and pulse oximetry were continuously monitored by the interventional radiology nurse. Blood pressure was monitored at 5 minute intervals. Additional Medications: Lidocaine 1% for local anesthesia Estimated blood loss: Minimal Blood products administered: None Complications: No immediate Specimens: 525 cc cloudy fluid Implants: None Condition at completion: Stable Disposition: Returned to ER DISCUSSION: Informed consent was obtained and documented in the medical record after discussion of risks and benefits. The patient was placed in the supine position and the right abdominal wall was prepped and draped in the standard sterile fashion. A suitable percutaneous approach to a small amount of ascites in the right upper quadrant was identified and 1% lidocaine was infiltrated into the skin and subcutaneous tissues for local anesthesia. Then under continuous sonographic guidance a 5 Arabic Yueh needle catheter was advanced into the ascitic fluid. The catheter was advanced off the needle and connected to vacuum bottle with subsequent evacuation of 525 cc cloudy fluid. The catheter was removed and a sterile dressing was applied. The patient tolerated the procedure well without immediate complication. FINDINGS: Small volume ascites. IMPRESSION: Successful ultrasound-guided paracentesis with evacuation of 525 cc cloudy fluid. Specimen was submitted for laboratory analysis as requested by the referring clinical team. Signed by: Dr. Stefan Sandoval M.D. on 12/11/2018 4:24 PM
--- NOTE | 2018-12-11 16:32 | NUR ---
PATIENT ARRIVED ON THE UNIT AT 1610 FROM RADIOLOGY POST PARACENTESIS. PATIENT IS IN STABLE CONDITION WITH NO S/S OF RESPIRATORY DISTRESS. PATIENT DENIES PAIN. BED ALARM ON. CALL LIGHT IS WITHIN REACH, PATIENT INSTRUCTED TO CALL FOR ASSISTANCE NEEDED.
[2018-12-11 16:54] LABS: BODY FLUID APPEARANCE SL.CLOUDY; BODY FLUID COLOR STRAW; BODY FLUID TYPE PERITONEAL
--- NOTE | 2018-12-11 17:52 | NUR ---
PATIENT STATES SHE HAS BEEN HAVING LOOSE STOOLS SINCE 12/09/18. PATIENT AWARE OF NEED FOR STOOL SAMPLE- ITEMS PLACED IN PATIENT'S RESTROOM FOR COLLECTION OF STOOL. CONTACT ISOLATION PLACED UNTIL RESULTS.
[2018-12-11] MEDS ORDERED: POTASSIUM CHLORIDE 20 MEQ TAB CR PO ONE (18:00)
[2018-12-11 18:22] LABS: LYMPHOCYTES,BODY FLUID 3 %; MONO/MACROPHG,BODY FLUID 58 %
[2018-12-11 18:26] LABS: OTHER CELLS,BODY FLUID 39 %
[2018-12-11 18:46] LABS: RBC,BODY FLUID 613 cells/uL; WBC,BODY FLUID 23 cells/uL
--- NOTE | 2018-12-11 18:59 | NUR ---
PATIENT IS IN STABLE CONDITION WITH NO S/S OF RESPIRATORY DISTRESS. NO PAIN VOICED. BED ALARM ON. CALL LIGHT IS WITHIN REACH, PATIENT INSTRUCTED TO CALL FOR ASSISTANCE NEEDED. BEDSIDE REPORT GIVEN TO ONCOMING NURSE.
[2018-12-11] MEDS ORDERED: ALBUTEROL/IPRATROPIUM 3 ML NEB NEB SCH (19:00)
[2018-12-11] MEDS ORDERED: ALBUTEROL/IPRATROPIUM 3 ML NEB NEB PRN (19:00)
--- NOTE | 2018-12-11 19:15 | NUR ---
PER DR PHOENIX GOMEZ ALDACTONE 50MG PO DAILY IN THE MORNING AND LASIX 40MG PO DAILY AT NOON. WILL CONTINUE TO MONITOR.
--- NOTE | 2018-12-11 19:22 | NUR ---
PT IS RESTING IN BED. NO RESPIRATORY DISTRESS NOTED. BED IN THE LOWEST POSITION, LOCKED, BED ALARM ON, AND CALL LIGHT WITHIN REACH. WILL CONTINUE TO MONITOR.
[2018-12-11] MEDS ORDERED: NON-FORMULARY MEDICATION (Mirtazapine (Remeron) 30 MG) PO SCH (21:00)
[2018-12-11] MEDS ORDERED: MIRTAZAPINE 15 MG TAB PO SCH (21:00)
[2018-12-11] MEDS ORDERED: SODIUM CHLORIDE 0.9% 250ML 250 ML ONE (21:27)
[2018-12-11] MEDS: MIRTAZAPINE 15 MG TAB PO SCH (21:35)
[2018-12-11] MEDS: SIMVASTATIN 20 MG TAB PO SCH (21:35)
[2018-12-11] MEDS: CEFEPIME 1GM/NS 0.9% 50 ML 50 ML IV SCH (21:35)
[2018-12-12] VITALS (7 sets, daily range): BP systolic 117–130; BP diastolic 56–63
--- NOTE | 2018-12-12 00:20 | NUR ---
PER DR MILLER CHANGE PT DIET TO 2G SODIUM DIET. WILL CONTINUE TO MONITOR.
--- NOTE | 2018-12-12 01:05 | Consultation ---
DATE OF CONSULTATION: 12/11/2018 Psychiatric Consultation REASON FOR CONSULTATION: To evaluate the patient's depression and anxiety. HISTORY OF PRESENT ILLNESS: The patient came into the ER complaining of abdominal pain. She has history of hernia, cirrhosis, colitis, and low potassium, hypertension, GERD, and kidney stones. Upon evaluation today, the patient is found to be in the room. She is alert, awake, and oriented to situation. The patient continued to complain of depression, but denies any anxiety. She reports poor sleep last night and she claims that she has been taking Remeron at home. She reports feeling hopeless and helpless, but denies any suicidal or homicidal ideation. She denies any hallucination. She complained of poor appetite, though she is not agitated or combative. PAST PSYCHIATRIC HISTORY: She reports history of depression. She denies past suicide attempts. She reports drinking alcohol every day, 4 beers a day, last drink was on Monday. FAMILY HISTORY: Denies. SOCIAL HISTORY: The patient lives with her granddaughter. MENTAL STATUS EXAM: The patient is an elderly female. She is alert, awake, and oriented to situation. Her mood is depressed. Affect is congruent with mood. Thought process is concrete and linear. No delusion or paranoia elicited. Denies hallucination. Denies suicidal or homicidal ideation. Memory appears to be grossly intact. CURRENT MEDICATIONS: 1. Remeron 30 mg p.o. at bedtime. 2. Tylenol p.r.n. 3. Hydralazine. 4. Albuterol. 5. Simvastatin. 6. Protonix. 7. Metoprolol. 8. Atarax. 9. Cefepime. 10. Morphine. 11. Ondansetron. LABORATORY DATA: Current labs; WBC 7.47, RBC 3.19, hemoglobin 12, hematocrit 34.0, and platelets 105. Chemistry; sodium 137, potassium 3.2, chloride 109, CO2 of 21, BUN 8, creatinine 0.81. ASSESSMENT: 1. Major depressive disorder, recurrent, moderate. 2. Alcohol abuse/dependency. PLAN: 1. Plan is to increase Remeron to 45 mg p.o. at bedtime. 2. Continue with Atarax 10 mg p.o. q.6 hours p.r.n. 3. Recommend total abstinence from alcohol. 4. Monitor for mood. 5. Supportive therapy. Thank you for this consultation. Dictated by Katerin Payne PA-C Dahlia Ko MD QTV/MODL /[id number]
[2018-12-12] MEDS: CEFEPIME 1GM/NS 0.9% 50 ML 50 ML IV SCH ×3 (03:51→20:30)
[2018-12-12 04:00] LABS: BASOPHILS % 0.5 % (0.0-1.0); EOSINOPHILS # (AUTO) 0.1 (0.0-0.4); EOSINOPHILS % 1.3 % (0.0-6.0); HEMATOCRIT 31.8 % (34.2-44.1); HEMOGLOBIN 11.1 g/dL (12.0-16.0); LYMPHOCYTES # (AUTO) 2.6 (1.0-3.2); MEAN CORPUSCULAR HGB CONC 34.9 g/dL (31-35); MEAN CORPUSCULAR VOLUME 108.9 fL (81-99); MONOCYTES # (AUTO) 1.2 (0.2-0.8); MONOCYTES % 13.7 % (4.4-11.3); NEUTROPHILS # (AUTO) 4.5 (2.1-6.9); PLATELET COUNT 98 x10e3/uL (140-360); RED BLOOD COUNT 2.92 x10e6/uL (3.6-5.1); RED CELL DISTRIBUTION WIDTH 15.5 % (11.7-14.4)
[2018-12-12 04:12] LABS: INR 1.68; PROTHROMBIN TIME 20.4 seconds (11.9-14.5)
[2018-12-12 04:13] LABS: PARTIAL THROMBOPLASTIN TIME 42.2 seconds (23.8-35.5)
[2018-12-12 04:22] LABS: ALANINE AMINOTRANSFERASE 22 IU/L (0-55); ALBUMIN 2.1 g/dL (3.5-5.0); ALKALINE PHOSPHATASE 157 IU/L (40-150); ANION GAP 10.2 mmol/L (8-16); BILIRUBIN,DIRECT 1.6 mg/dL (0.0-0.5); BLOOD UREA NITROGEN 11 mg/dL (7-26); BUN/CREATININE RATIO 14 (6-25); CALCIUM 8.5 mg/dL (8.4-10.2); CARBON DIOXIDE 19 mmol/L (22-29); CHLORIDE 109 mmol/L (98-107); CREATININE, SERUM 0.78 mg/dL (0.57-1.11); EST GLOMERULAR FILTRATION RATE > 60 ML/MIN (60-); GLUCOSE 86 mg/dL (74-118); MAGNESIUM 1.5 MG/DL (1.3-2.1); SODIUM 134 mmol/L (136-145)
[2018-12-12 04:28] LABS: POTASSIUM 4.2 mmol/L (3.5-5.1)
[2018-12-12 04:35] LABS: B-TYPE NATRIURETIC PEPTIDE2 90.9 pg/mL (0-100)
--- NOTE | 2018-12-12 07:00 | NUR ---
RECEIVED PT RESTING IN BED EYES CLOSED RESPIRATIONS EVEN AND NON LABORED ON ROOM AIR NO S/S OF DISTRESS NOTED. CALL LIGHT WITHIN REACH. BED LOCKED AND IN LOWEST POSITION. WILL CONTINUE TO MONITOR.
[2018-12-12] MEDS: PANTOPRAZOLE SOD 40 MG TABEC PO SCH (08:28)
[2018-12-12] MEDS: METOPROLOL SUCCINATE 50 MG TAB XL PO SCH (08:28)
[2018-12-12] MEDS ORDERED: SIMVASTATIN 40 MG TAB PO SCH (09:00)
[2018-12-12] MEDS ORDERED: SPIRONOLACTONE 25 MG TAB PO SCH (09:00)
--- NOTE | 2018-12-12 09:00 | NUR ---
NOTIFIED MIRIAN AVERY WITH DR. GARIBAY PT HAS NOT HAD ANYMORE LOOSE BM PER PT REPORT. BM THIS MORNING WAS FORMED. RECEIVED ORDER TO D/C ORDER FOR CDIFF AND D/C CONTACT ISOLATION.
[2018-12-12] MEDS ORDERED: FUROSEMIDE 40 MG TAB PO SCH (12:00)
--- NOTE | 2018-12-12 14:37 | NUR ---
NOTIFIED MIRIAN AVERY WITH DR. GARIBAY REGARDING PVR OF 450 ML. NO NEW ORDERS AT THIS TIME DUE TO BLADDER SCAN COMPLETE 30 MIN AFTER VOID BECAUSE THAT IS WHEN NURSE WAS NOTIFIED BY PT THAT SHE VOIDED. WILL REASSESS PVR WITH NEXT VOID. INSTRUCTED TO NOTIFY NURSE OF VOID SOON VOIDING COMPLETE. PT VERBALIZED UNDERSTANDING.
--- NOTE | 2018-12-12 15:50 | NUR ---
NOTIFIED MIRIAN AVERY WITH DR. GARIBAY REGARDING PVR 553ML AFTER 900 ML VOID. RECEIVED ORDER FOR CONSULT DR. Geeta VELEZ FOR RETENTION.
--- NOTE | 2018-12-12 16:27 | NUR ---
LEFT MESSAGE WITH OFFICE STAFF REGARDING NEW CONSULT FOR DR. Geeta VELEZ. FAXED COVERSHEET TO [phone] PER REQUEST. Addendum: 12/12/18 at 1628 by Clara Champion RN [place], FAXED FACESHEET.
--- NOTE | 2018-12-12 17:12 | NUR ---
Nutrition Screen Note RD Recommendation for Physician: -Continue current diet as ordered -Pt was not interested in any oral nutrition supplements -Rec MVi w/ thiamine and folic acid for alcoholism Plan of Care: RD following, monitoring for tolerance and adequacy, diet education Nutrition reason for involvement: Hx of cirrhosis, readmission for similar issue Primary Diagnose(s): abdominal pain, alcohol abuse, bacterial peritonitis PMH: diverticulitis, cirrhosis, HTN, kidney stones Ht: 58in Wt: 128lb BMI: 25.9kg/m2 IBW: 95lb RD Assessment: (12/12) Chart reviewed. Labs and meds reviewed. 73yo F, who was admitted for abdominal pain. Pt was well known to me during her last hospital admission (discharged on 12/08). Pt reported some improvement in her appetite with ~50% meal intake. No complains of nausea or vomiting. Pt denied any chewing or swallowing difficulty. Pt has been trying to quit alcohol. Pt was not interested in ONS. RD offered diet education on cirrhosis. Pt verbalized understanding. All questions have been answered. Will continue to monitor and follow. Current Diet: 2g sodium diet Malnutrition Evaluation (12/12/2018) The patient does not meet criteria for a specified degree of malnutrition at this time. Will re-evaluate at follow-up as appropriate. Diet Education Needs Assessment: Diet education indicated, pt was agreeable with plan. Learner(s): pt Time spent: 15minutes Barriers: No barriers identified. Cultural/Language Modifications: No cultural/language modifications noted. Pt speaks Portuguese. Readiness: Acceptance Method: Handouts, explanation Topics: Cirrhosis nutrition therapy (low sodium, tips in increasing PO intake, alcohol cessation, MVi w/minerals) Understanding/Compliance: Expect fair understanding/compliance from pt. Will benefit from reinforcement. All questions have been answered. Nutrition Care Level: low Signed: Savannah Recinos, MS, RD, LD
--- NOTE | 2018-12-12 18:36 | NUR ---
35 ML URINE OUTPUT WITH RAMIREZ CATHETER PLACEMENT. SAMPLE COLLECTED FOR URINE CULTURE AND SENT TO LAB.
--- NOTE | 2018-12-12 18:45 | NUR ---
NOTIFIED DR. Geeta VELEZ REGARDING 35 ML URINE OUTPUT AFTER RAMIREZ CATHETER INSERTION. STATES D/C RAMIREZ BLADDER SCAN POSSIBLY PICKED UP ASCITES. PT STILL NEEDS TO F/U FOR URODYNAMICS STUDIES AFTER D/C HOME.
--- NOTE | 2018-12-12 19:20 | NUR ---
Completed bedside rounds with morning nurse. Pt alert and orient to name. Lying in HOB 45 degrees. Denies pain at this time. Informed Betancourt will be removed tonight. Call bella within reach. Will continue to monitor.
[2018-12-12] MEDS: MIRTAZAPINE 15 MG TAB PO SCH (21:06)
[2018-12-12] MEDS: SIMVASTATIN 20 MG TAB PO SCH (21:06)
--- NOTE | 2018-12-12 21:07 | NUR ---
16 Fr Betancourt cath d/c'd per doctor's order. 10mL of water from balloon. Catheter removed without difficulty, catheter tip intact. Pt instructed to notify nurse of first void.
[2018-12-13] VITALS (8 sets, daily range): BP systolic 110–128; BP diastolic 55–60
--- NOTE | 2018-12-13 00:56 | Consultation ---
DATE OF CONSULTATION: 12/12/2018 Thank you, Dr. Riley for this consultation. HISTORY OF PRESENT ILLNESS: She is a very pleasant woman with past medical history includes hyperlipidemia, hypertension, history of chronic liver disease, liver cirrhosis, GERD, kidney stone, depression, and history of alcohol abuse. She is admitted through emergency with right upper quadrant, right abdomen, and right lower quadrant pain. She was also complaining of abdominal distention. She has poor appetite. She denies any nausea, vomiting, or loose motion. No fever or chills reported. She has CT abdomen that shows multiple gallstones. She also has low platelet counts. She was recently hospitalized. At that time, she has CEA level, which was high. The patient's coagulation profile also mildly elevated. The patient is currently in hospital for further management. PAST MEDICAL HISTORY: Include colonic liver disease/cirrhosis, hypertension, kidney stones, and GERD. PAST SURGICAL HISTORY: Include breast surgery, lithotripsy, tubal ligation, and history of paracentesis. ALLERGIES: PER NURSING LIST. MEDICATION LIST: Reviewed. SOCIAL HISTORY: The patient has history of alcohol on daily basis. FAMILY HISTORY: Positive with hypertension. REVIEW OF SYSTEMS: As per the HPI. PHYSICAL EXAMINATION: GENERAL: Alert, awake, communicative. HEENT: Normocephalic, atraumatic. Sclerae anicteric. Conjunctiva clear. NECK: Supple. CHEST: Decreased breath sounds at bases. CARDIOVASCULAR: Regular rate and rhythm. ABDOMEN: Soft and distended. Positive fluid wave. EXTREMITIES: 1+ edema. ORTHODONTIC BAND MAKER: Intact. LABORATORY AND IMAGING DATA: Reviewed. ASSESSMENT AND PLAN: The patient with history of chronic liver disease, admitted with possible gallbladder stone, ascites, portal hypertension, and depression. The patient's recent CAT scan showed multiple gallstones. She has a thrombocytopenia and her recent hospital admission showed elevated CEA level. Elevated CEA level is likely because of ascites. So far, no other evidence of any GI malignancy. RECOMMENDATIONS: Close observation. Thrombocytopenia. Likely etiology of chronic liver disease causing decreased production of thrombopoietin, increased destruction of platelets through the spleen. No evidence of any active bleeding. We will follow the patient closely. MD MARY Wade/TERESA /[id number]
[2018-12-13] MEDS: CEFEPIME 1GM/NS 0.9% 50 ML 50 ML IV SCH ×3 (04:00→21:00)
--- NOTE | 2018-12-13 04:17 | Consultation ---
DATE OF CONSULTATION: 12/12/2018 Urology Consultation REASON FOR CONSULTATION: Urinary retention. HISTORY OF PRESENT ILLNESS: Margarita Briseno is a 73-year-old woman, who was admitted for abdominal pain. The patient has a long urological history. She had urinary tract infections when she was younger. The patient had history of kidney stones and underwent what sounds like a left percutaneous nephrostolithotomy at [facility] over 10 years ago. The patient also has both stress and urge type urinary incontinence. The patient has ascites to cirrhosis and has undergone two paracentesis in the last week. The patient's voiding was evaluated and immediately after voiding 900 mL, bladder scanner revealed a postvoid residual of 500 mL. I had requested the nurse to place a Betancourt catheter in the patient. When the nurse did, she obtained a volume of only 35 mL with a Betancourt catheter. PAST MEDICAL AND SURGICAL HISTORY: 1. 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 2. 5, para 5, by normal spontaneous vaginal delivery. 3. Bilateral tubal ligation. 4. Status post left breast biopsy, which was negative for carcinoma. 5. Depression. 6. Colitis. 7. Hypertension. 8. Gastroesophageal reflux disease. CURRENT MEDICATIONS: Please refer to the MAR. ALLERGIES: PLEASE REFER TO THE MAR. SOCIAL HISTORY: The patient denies smoking and drug use. The patient used to clean houses. She drinks at least four beers per day. FAMILY HISTORY: Noncontributory to the active urological problems. REVIEW OF SYSTEMS: Consistent with above history of present illness and past medical history, otherwise negative for all systems. PHYSICAL EXAMINATION: GENERAL: A pleasant 73-year-old woman lying in bed, in no apparent distress, is currently afebrile. VITAL SIGNS: Currently stable. ABDOMEN: Soft. It is distended and full and significant for obvious ascites. No obvious hernia. GENITOURINARY: Normal external female genitalia. Internal examination is deferred. For the remaining physical examination systems, please refer to the admission history and physical on the chart in the ERT sheet. LABORATORY STUDIES: CT scan of the abdomen and pelvis was done yesterday, it reveals a lobulated contour of the right kidney, which may be congenital, of course inflammatory. Left kidney was unremarkable. There are no stones noted. This was a contrasted study. Diffuse ascites was noted. Preliminary urine culture was negative. White blood cell count is 8440, hemoglobin is 11.1, platelets are low at 98,000. The patient's sodium is low at 134, creatinine is normal at 0.78, magnesium is normal at 1.8, calcium is normal at 8.5. Urinalysis significant for 6-10 WBCs with many epithelial cells and few bacteria consistent with a non-clean catch urinary specimen. ASSESSMENT: 1. History of urolithiasis. 2. Mixed type urinary incontinence. 3. Possibly urinary tract infection with this non-clean catch urinary specimen. 4. Anemia. 5. Thrombocytopenia. 6. Hyponatremia. 7. Incomplete bladder emptying, but no evidence of true urinary retention. The result of the bladder scanner is incorrect due to the fact that the bladder scan is calculating ascites fluid as urine. The Betancourt catheter definitely makes this distinction with only 35 mL as a postvoid residual. PLAN: 1. No Betancourt catheter. 2. The patient is to follow up for an outpatient urodynamic study. 3. Metabolic stone workup is in order as well as ongoing urological followup for the patient's history of significant urolithiasis or required significant intervention. 4. At some point future renal scan will be obtained to evaluate the differential renal function in light of the scarring of one of the kidneys. Thank you very much for involving us in the care of your patient. We will be happy to follow along with you as well as an outpatient. Robert Siddiqui MD [place]/MODL /[id number] cc: Itz Kapoor MD
[2018-12-13] MEDS: FUROSEMIDE 40 MG TAB PO SCH ×2 (06:00→18:04)
[2018-12-13 06:29] LABS: BASOPHILS % 0.4 % (0.0-1.0); EOSINOPHILS # (AUTO) 0.2 (0.0-0.4); EOSINOPHILS % 2.2 % (0.0-6.0); HEMATOCRIT 27.7 % (34.2-44.1); LYMPHOCYTES # (AUTO) 2.6 (1.0-3.2); LYMPHOCYTES % 37.6 % (18.0-39.1); MEAN CORPUSCULAR HGB CONC 36.1 g/dL (31-35); MEAN CORPUSCULAR VOLUME 105.3 fL (81-99); MONOCYTES # (AUTO) 1.1 (0.2-0.8); MONOCYTES % 15.2 % (4.4-11.3); NEUTROPHILS % 44.2 % (38.7-80.0); PLATELET COUNT 100 x10e3/uL (140-360); RED BLOOD COUNT 2.63 x10e6/uL (3.6-5.1); RED CELL DISTRIBUTION WIDTH 15.3 % (11.7-14.4)
--- NOTE | 2018-12-13 06:58 | NUR ---
Pt lying in bed HOB 30 degrees. Denies pain at this time. No distress noted.
[2018-12-13 07:04] LABS: ANION GAP 7.3 mmol/L (8-16); BLOOD UREA NITROGEN 10 mg/dL (7-26); BUN/CREATININE RATIO 15 (6-25); CALCIUM 8.2 mg/dL (8.4-10.2); CARBON DIOXIDE 24 mmol/L (22-29); CHLORIDE 108 mmol/L (98-107); CREATININE, SERUM 0.68 mg/dL (0.57-1.11); EST GLOMERULAR FILTRATION RATE > 60 ML/MIN (60-); GLUCOSE 69 mg/dL (74-118); MAGNESIUM 1.5 MG/DL (1.3-2.1); POTASSIUM 3.3 mmol/L (3.5-5.1); SODIUM 136 mmol/L (136-145)
[2018-12-13 07:07] LABS: ALBUMIN 1.9 g/dL (3.5-5.0); BILIRUBIN,DIRECT 1.5 mg/dL (0.0-0.5)
--- NOTE | 2018-12-13 07:08 | NUR ---
pt alert resp even and unlabored at this time no distress noted pot able to make needs known no c/o pain when asked, call light in reach.
[2018-12-13] MEDS: SPIRONOLACTONE 25 MG TAB PO SCH ×2 (08:27→18:04)
[2018-12-13] MEDS: METOPROLOL SUCCINATE 50 MG TAB XL PO SCH (08:27)
[2018-12-13] MEDS: PANTOPRAZOLE SOD 40 MG TABEC PO SCH (08:27)
[2018-12-13] MEDS ORDERED: DIPHENHYDRAMINE HCL 25 MG CAP PO PRN (11:15)
[2018-12-13] MEDS ORDERED: POTASSIUM CHLORIDE 20 MEQ TAB CR PO SCH (11:15)
--- NOTE | 2018-12-13 19:23 | NUR ---
report given to oncoming nurse, for continued care
[2018-12-13] MEDS: SIMVASTATIN 20 MG TAB PO SCH (21:00)
[2018-12-13] MEDS: MIRTAZAPINE 15 MG TAB PO SCH (21:00)
[2018-12-13] MEDS ORDERED: FUROSEMIDE INJ 10 MG/ML 4 ML VIAL IV ONE (23:45)
[2018-12-14] VITALS (8 sets, daily range): BP systolic 93–123; BP diastolic 51–67
[2018-12-14] MEDS: CEFEPIME 1GM/NS 0.9% 50 ML 50 ML IV SCH ×3 (04:00→20:00)
[2018-12-14 04:55] LABS: ALANINE AMINOTRANSFERASE 19 IU/L (0-55); ALBUMIN 2.1 g/dL (3.5-5.0); ALKALINE PHOSPHATASE 188 IU/L (40-150); ANION GAP 12.1 mmol/L (8-16); BILIRUBIN,DIRECT 1.6 mg/dL (0.0-0.5); BLOOD UREA NITROGEN 11 mg/dL (7-26); BUN/CREATININE RATIO 14 (6-25); CALCIUM 8.3 mg/dL (8.4-10.2); CARBON DIOXIDE 24 mmol/L (22-29); CHLORIDE 104 mmol/L (98-107); CREATININE, SERUM 0.76 mg/dL (0.57-1.11); EST GLOMERULAR FILTRATION RATE > 60 ML/MIN (60-); GLUCOSE 90 mg/dL (74-118); MAGNESIUM 1.4 MG/DL (1.3-2.1); POTASSIUM 3.1 mmol/L (3.5-5.1); SODIUM 137 mmol/L (136-145)
[2018-12-14] MEDS: FUROSEMIDE 40 MG TAB PO SCH ×2 (05:37→17:56)
[2018-12-14 05:48] LABS: BASOPHILS % 0.4 % (0.0-1.0); EOSINOPHILS # (AUTO) 0.1 (0.0-0.4); EOSINOPHILS % 1.3 % (0.0-6.0); HEMATOCRIT 29.6 % (34.2-44.1); HEMOGLOBIN 10.7 g/dL (12.0-16.0); LYMPHOCYTES # (AUTO) 2.6 (1.0-3.2); LYMPHOCYTES % 34.5 % (18.0-39.1); MEAN CORPUSCULAR HEMOGLOBIN 37.8 pg (28-32); MEAN CORPUSCULAR HGB CONC 36.1 g/dL (31-35); MEAN CORPUSCULAR VOLUME 104.6 fL (81-99); MONOCYTES # (AUTO) 1.2 (0.2-0.8); MONOCYTES % 16.2 % (4.4-11.3); NEUTROPHILS # (AUTO) 3.6 (2.1-6.9); NEUTROPHILS % 47.5 % (38.7-80.0); PLATELET COUNT 106 x10e3/uL (140-360); RED BLOOD COUNT 2.83 x10e6/uL (3.6-5.1); RED CELL DISTRIBUTION WIDTH 15.2 % (11.7-14.4)
--- NOTE | 2018-12-14 07:08 | NUR ---
RECEIVED PATIENT RESTING IN BED. NO ACUTE DISTRESS NOTED. DENIES PAIN OR DISCOMFORT AT THIS TIME. CALL LIGHT WITHIN REACH. BED IN THE LOWEST POSITION.
[2018-12-14] MEDS ORDERED: POTASSIUM CHLORIDE 20 MEQ TAB CR PO NR (08:30)
[2018-12-14] MEDS: PANTOPRAZOLE SOD 40 MG TABEC PO SCH (08:54)
[2018-12-14] MEDS: POTASSIUM CHLORIDE 20 MEQ TAB CR PO SCH ×2 (08:54→17:56)
[2018-12-14] MEDS: METOPROLOL SUCCINATE 50 MG TAB XL PO SCH (08:54)
[2018-12-14] MEDS: SPIRONOLACTONE 25 MG TAB PO SCH ×2 (08:54→17:56)
[2018-12-14] MEDS ORDERED: BENZONATATE 100 MG CAP PO PRN (09:00)
--- NOTE | 2018-12-14 12:00 | NUR ---
ASKED COMMERCIAL LOAN MANAGER IF I COULD REPEAT POTASSIUM LAB FOR PATIENT, SHE STATED NO. ORDERS FOR LAB ALREADY IN FOR TOMORROW AM.
[2018-12-14 12:47] LABS: ANISOCYTOSIS SLIGHT; HYPOCHROMASIA SLIGHT; PLATELET ESTIMATE SLIGHTLY DECREASED; PLATELET MORPHOLOGY COMMENT NORMAL; POIKILOCYTOSIS SLIGHT; RBC MORPHOLOGY COMMENT NORMAL; TARGET CELLS FEW
[2018-12-14] MEDS ORDERED: TRAZODONE HCL 50 MG TAB PO PRN (13:45)
--- NOTE | 2018-12-14 15:25 | Progress Note ---
DATE: 12/14/2018 Psychiatric Progress Note SUBJECTIVE: The patient evaluated and events noted. The patient is in the room with family members. She appears to be doing fair. She states that she is feeling pretty good. She complained of poor sleep. internal stimuli. She is not agitated and no reported suicidal ideation. She is not having any side effects from medication and none reported. ASSESSMENT: 1. Major depressive disorder, recurrent, moderate. 2. Alcohol abuse/dependency. PLAN: 1. Continue Remeron 45 mg p.o. q.h.s. 2. Continue Atarax p.r.n. p.o. 3. Add trazodone 50 mg p.o. at bedtime p.r.n. 4. Recommend total abstinence from alcohol. 5. Monitor for mood. 6. Supportive therapy. Dictated by Katerin Payne PA-C Dahlia Ko MD QTV/MODL /[id number]
--- NOTE | 2018-12-14 19:15 | NUR ---
patient received awake, alert, lying quietly in bed. no c/o pain noted. pm assessment complete. patient instructed to call for assistance when needed.
--- NOTE | 2018-12-14 19:35 | NUR ---
REPORT GIVEN TO ONCOMING NURSE, WALKING ROUNDS DONE. PATIENT IS RESTING IN BED, NO ACUTE DISTRESS NOTED. CALL LIGHT WITHIN REACH. BED IN THE LOWEST POSITION.
[2018-12-14] MEDS: MIRTAZAPINE 15 MG TAB PO SCH (20:51)
[2018-12-14] MEDS: SIMVASTATIN 20 MG TAB PO SCH (20:51)
[2018-12-15 00:26] VITALS: BP 102/55
--- NOTE | 2018-12-15 01:30 | NUR ---
patient teaching completed on low sodium diet. print out given. patient verbalizes understanding of this.
--- NOTE | 2018-12-15 03:00 | NUR ---
0300 labs drawn at this time and sent to lab,
[2018-12-15 03:06] LABS: BASOPHILS % 0.5 % (0.0-1.0); EOSINOPHILS # (AUTO) 0.1 (0.0-0.4); EOSINOPHILS % 1.5 % (0.0-6.0); HEMATOCRIT 31.2 % (34.2-44.1); HEMOGLOBIN 10.7 g/dL (12.0-16.0); LYMPHOCYTES # (AUTO) 2.8 (1.0-3.2); LYMPHOCYTES % 37.2 % (18.0-39.1); MEAN CORPUSCULAR HEMOGLOBIN 36.9 pg (28-32); MEAN CORPUSCULAR HGB CONC 34.3 g/dL (31-35); MEAN CORPUSCULAR VOLUME 107.6 fL (81-99); MONOCYTES # (AUTO) 1.2 (0.2-0.8); MONOCYTES % 16.6 % (4.4-11.3); NEUTROPHILS # (AUTO) 3.3 (2.1-6.9); NEUTROPHILS % 43.9 % (38.7-80.0); PLATELET COUNT 114 x10e3/uL (140-360); RED CELL DISTRIBUTION WIDTH 15.3 % (11.7-14.4)
[2018-12-15 03:33] LABS: ANION GAP 9.8 mmol/L (8-16); BLOOD UREA NITROGEN 12 mg/dL (7-26); BUN/CREATININE RATIO 15 (6-25); CALCIUM 8.8 mg/dL (8.4-10.2); CARBON DIOXIDE 27 mmol/L (22-29); CHLORIDE 102 mmol/L (98-107); EST GLOMERULAR FILTRATION RATE > 60 ML/MIN (60-); GLUCOSE 90 mg/dL (74-118); MAGNESIUM 1.6 MG/DL (1.3-2.1); POTASSIUM 3.8 mmol/L (3.5-5.1); SODIUM 135 mmol/L (136-145)
[2018-12-15] MEDS: CEFEPIME 1GM/NS 0.9% 50 ML 50 ML IV SCH ×2 (03:39→11:54)
[2018-12-15 04:34] VITALS: BP 113/55
[2018-12-15 05:03] LABS: LYMPHOCYTES % (MANUAL) 40 % (19-48); MONOCYTES % (MANUAL) 14 % (3.4-9.0); NEUTROPHILS % (MANUAL) 46 % (40-74)
[2018-12-15 05:04] LABS: PLATELET ESTIMATE SLIGHTLY DECREASED; PLATELET MORPHOLOGY COMMENT FEW LARGE
[2018-12-15] MEDS: FUROSEMIDE 40 MG TAB PO SCH (05:25)
--- NOTE | 2018-12-15 06:56 | NUR ---
RECEIVED PATIENT RESTING IN BED. NO ACUTE DISTRESS NOTED. DENIES PAIN OR DISCOMFORT. CALL LIGHT WITHIN REACH. BED IN THE LOWEST POSITION.
[2018-12-15 07:36] VITALS: BP 124/58
[2018-12-15 07:58] VITALS: BP 124/58
[2018-12-15] MEDS: PANTOPRAZOLE SOD 40 MG TABEC PO SCH (08:13)
[2018-12-15] MEDS: POTASSIUM CHLORIDE 20 MEQ TAB CR PO SCH (08:13)
[2018-12-15] MEDS: SPIRONOLACTONE 25 MG TAB PO SCH (08:13)
[2018-12-15] MEDS: METOPROLOL SUCCINATE 50 MG TAB XL PO SCH (08:13)
[2018-12-15 11:12] VITALS: BP 115/60
[2018-12-15] MEDS ORDERED: ALDACTONE25 MG PO (12:04)
[2018-12-15] MEDS ORDERED: KLOR-CON M2020 MEQ PO (12:04)
[2018-12-15] MEDS ORDERED: TRAZODONE HCL50 MG PO (12:04)
[2018-12-15] MEDS ORDERED: MIRTAZAPINE15 MG PO (12:04)
[2018-12-15] MEDS ORDERED: FUROSEMIDE40 MG PO (12:04)
--- NOTE | 2018-12-15 14:45 | NUR ---
RECEIVED DC ORDER FROM BOOK TRIMMER. PATIENT IS IN STABLE CONDITION. IV LINE TO RIGHT AC DCD WITH TIP INTACT, PRESSURE APPLIED TO SITE, NO BLEEDING NOTED. DISCHARGE TEACHING PROVIDED TO PATIENT, SHE VERBALIZED UNDERSTANDING. DISCHARGE FOLDER AND PERSONAL ITEMS ON HAND. PATIENT ACCOMPANIED TO PRIVATE AUTO VIA WHEELCHAIR BY STAFF.
--- NOTE | 2018-12-15 15:38 | Progress Note ---
DATE: 12/15/2018 SUBJECTIVE: The patient was seen and examined on December 13. The patient appears comfortable. Clinically doing better. No chest pain or shortness of breath. PHYSICAL EXAMINATION: GENERAL: Alert, awake, communicative. HEENT: Normocephalic, atraumatic. Sclerae pale. Conjunctivae clear. NECK: Supple. CHEST: Decreased breath sounds in the bases. CARDIOVASCULAR: Regular rate. ABDOMEN: Soft. EXTREMITIES: 2+ edema. LABORATORY AND IMAGING DATA: Labs and imaging reviewed. ASSESSMENT/PLAN: The patient with history of alcoholism, chronic liver disease, liver cirrhosis, arthritis, thrombocytopenia, and elevated CEA level. The patient's CEA level was likely because of ascites. No evidence of any colon malignancy. Clinical condition is stable. Continue current care and we will follow. MD MARY Wade/TERESA /[id number]
--- NOTE | 2018-12-16 06:06 | Discharge Summary ---
ADMISSION DIAGNOSES: Cirrhosis, hypertension, hyperlipidemia, depression, anxiety, urinary tract infection present on admission, thrombocytopenia, hypokalemia. DISCHARGE DIAGNOSES: Cirrhosis, hypertension, hyperlipidemia, depression, anxiety, urinary tract infection present on admission, thrombocytopenia, hypokalemia. Rule out urinary tract infection, rule out bacteremia plus urinary retention. HISTORY: The patient has a history of hypertension, GERD, hyperlipidemia, alcohol abuse, insomnia, anxiety, and depression. PAST SURGICAL HISTORY: Tubal ligation, kidney stone surgery, and left breast biopsy. FAMILY HISTORY: The patient's daughter had diabetes and a stroke. SOCIAL HISTORY: Alcohol abuse. HOSPITAL COURSE: A 73-year-old female complains of constant bilateral upper quadrant pressure that began 12/09/2018 one day after she was discharged from the hospital. The pain and pressure radiated to her right lower quadrant on the day prior to admission, so she came back to the ER. Nothing improved or worsened the pain. She was taking medications as prescribed, but did not follow up with GI. She denies any alcohol use since the hospital discharge. On admission, the patient had a CT of the abdomen that showed cirrhosis with portal hypertension, evidenced by ascites, gastroesophageal varices, and umbilical venous recanalization. IR was consulted to do the paracentesis with evacuation of 525 mL of cloudy fluid. GI was reconsulted. Per patient recommendations, Psych was also reconsulted. They increased her Remeron to 45 mg at bedtime. The patient was started on Lasix and spironolactone, which had to be increased one time prior to discharge. Due to urinary retention, Urology was consulted. They will work up the retention outpatient. The patient had elevated CEA, which Hematology said was caused by the liver disease. TB test was planned, but not complete at time of discharge. With the Lasix and aldactone added, the patient is feeling much better and is ready to discharge home. She was discharged with Lasix 40 b.i.d., Remeron 45 at bedtime, potassium 20 b.i.d., aldactone 50 b.i.d., and trazodone 50 at bedtime. She will follow up with primary care in 1 to [address] Lei within one week. The patient understands discharge instructions and agrees to plan. Vital signs stable. The patient afebrile. Dictated by Nessa M [place], MEDICAL TECHNOLOGIST CHIEF MD ALEJANDRA Limon/TERESA /[id number]
== END 2018-12-15 14:56 | disposition home or self-care (01) | DRG 872 ==
LOC: ER 08:43 → ERHOLD 12:39 → MED/SURG3 16:11
PROVIDERS: ADMIT Internal Medicine; ATTEND Internal Medicine
PROC: 0W9G3ZX Drainage of Peritoneal Cavity, Percutaneous Approach, Diagnostic (ICD-10-PCS; principal; 2018-12-11)
DX: A41.9 Sepsis, unspecified organism (principal); N39.0 Urinary tract infection, site not specified; K76.6 Portal hypertension; F33.1 Major depressive disorder, recurrent, moderate; K70.31 Alcoholic cirrhosis of liver with ascites; K80.20 Calculus of gallbladder without cholecystitis without obstruction; I10 Essential (primary) hypertension; Z87.442 Personal history of urinary calculi; K21.9 Gastro-esophageal reflux disease without esophagitis; Z82.49 Family history of ischemic heart disease and other diseases of the circulatory system; Z83.3 Family history of diabetes mellitus; Z82.3 Family history of stroke; E78.5 Hyperlipidemia, unspecified; F41.9 Anxiety disorder, unspecified; G47.00 Insomnia, unspecified; E87.6 Hypokalemia; D69.6 Thrombocytopenia, unspecified; F10.20 Alcohol dependence, uncomplicated; N39.46 Mixed incontinence; D64.9 Anemia, unspecified; R19.7 Diarrhea, unspecified
CPT/HCPCS: 36415; 49083; 74177; 74470; 80048; 80053; 80076; 81001; 82140; 82150; 82550; 82553; 83690; 83735; 83880; 84484; 85025; 85610; 85730; 86850; 86900; 87040; 87071; 87075; 87086; 87205; 88112; 88305; 89051; 93005; 99284; J0692; J1940; J2270; J2405; J7050; Q9967

== ENCOUNTER 2018-12-22 21:45 | Inpatient (IN) | payer OTHER ==
[~2018-12-22] VITALS: Ht 149.9 cm; Wt 54.0 kg
[~2018-12-22 21:45] MED LIST changes: +ALDACTONE25 MG PO; +FUROSEMIDE40 MG PO; +KLOR-CON M2020 MEQ PO; +TRAZODONE HCL50 MG PO
--- NOTE | 2018-12-22 23:00 | Diagnostic Imaging Report ---
Examination: Single AP view of the chest. COMPARISON: None. INDICATION: Altered mental status DISCUSSION: Lines/tubes: None. Lungs: The lungs are well inflated and clear. No pneumonia or pulmonary edema. Pleura: No pleural effusion or pneumothorax. Heart and mediastinum: The heart and the mediastinum are unremarkable. Bones and soft tissues: No acute bony abnormalities. IMPRESSION: 1. No acute cardiopulmonary abnormalities. Signed by: Dr. Shaun Saldana M.D. on 12/22/2018 10:56 PM
[2018-12-22 23:32] LABS: BASOPHILS % 0.4 % (0.0-1.0); EOSINOPHILS # (AUTO) 0.1 (0.0-0.4); HEMATOCRIT 32.6 % (34.2-44.1); HEMOGLOBIN 11.8 g/dL (12.0-16.0); LYMPHOCYTES # (AUTO) 2.4 (1.0-3.2); LYMPHOCYTES % 33.1 % (18.0-39.1); MEAN CORPUSCULAR HEMOGLOBIN 37.5 pg (28-32); MEAN CORPUSCULAR HGB CONC 36.2 g/dL (31-35); MEAN CORPUSCULAR VOLUME 103.5 fL (81-99); MONOCYTES % 13.2 % (4.4-11.3); NEUTROPHILS # (AUTO) 3.8 (2.1-6.9); PLATELET COUNT 122 x10e3/uL (140-360); RED BLOOD COUNT 3.15 x10e6/uL (3.6-5.1); RED CELL DISTRIBUTION WIDTH 14.9 % (11.7-14.4)
[2018-12-22 23:40] LABS: INR 1.42; PROTHROMBIN TIME 17.9 seconds (11.9-14.5)
[2018-12-22 23:41] LABS: PARTIAL THROMBOPLASTIN TIME 33.9 seconds (23.8-35.5)
[2018-12-22 23:56] LABS: ALBUMIN 2.8 g/dL (3.5-5.0); ALBUMIN/GLOBULIN RATIO 0.4 (0.8-2.0); ANION GAP 15.8 mmol/L (8-16); CALCIUM 10.3 mg/dL (8.4-10.2); CREATININE, SERUM 1.29 mg/dL (0.57-1.11); POTASSIUM 4.8 mmol/L (3.5-5.1)
[2018-12-23] VITALS (10 sets, daily range): BP systolic 100–128; BP diastolic 53–61
[2018-12-23 00:11] LABS: BILIRUBIN,URINE NEGATIVE (NEGATIVE); CLARITY,URINE CLEAR (CLEAR); COLOR,URINE YELLOW (YELLOW); KETONES,URINE NEGATIVE (NEGATIVE); LEUKOCYTE ESTERASE ,URINE NEGATIVE (NEGATIVE); NITRITE,URINE NEGATIVE (NEGATIVE); PROTEIN,URINE DIPSTICK NEGATIVE (NEGATIVE); URINE UROBILINOGEN 0.2 mg/dL (0.2 - 1)
[2018-12-23 00:31] LABS: EPITHELIAL CELLS,URINE FEW /LPF; RBC,URINE 0-5 /HPF (0-5); WBC,URINE (MAN) 0-5 /HPF (0-5)
--- NOTE | 2018-12-23 01:26 | Diagnostic Imaging Report ---
Examination: CT BRAIN WITHOUT CONTRAST History:Altered. Confused. Weak. Comparison studies:None Technique: Axial images were obtained from the skull base to the vertex. Coronal and sagittal images reconstructed from the axial data. Dose modulation, iterative reconstruction, and/or weight based adjustment of the mA/kV was utilized to reduce the radiation dose to as low as reasonably achievable. Intravenous contrast: None Findings: Scalp: No abnormalities. Bones: No fractures, blastic or lytic lesions. Brain sulci: Appropriate for age. Ventricles: Normal in size and configuration. No hydrocephalus. Extra-axial space: No abnormalities. Parenchyma: No masses, hemorrhage, or acute or chronic cortical based vascular insults.. Sellar/suprasellar region: No abnormalities. Craniocervical junction: Patent foramen magnum. No Chiari one malformation. Impression: No acute intracranial abnormalities. Signed by: Dr. Andreea Tse M.D. on 12/23/2018 1:22 AM
[2018-12-23] MEDS ORDERED: SODIUM CHLORIDE 0.9% 1000ML 1,000 ML IV SCH (01:27)
[2018-12-23] MEDS ORDERED: ONDANSETRON HCL INJ 2MG/ML 2ML 2 MG/ML VIAL IV PRN (01:30)
[2018-12-23] MEDS ORDERED: LACTULOSE SYRUP 20 GM/30 ML UDC PO PRN (01:30)
[2018-12-23] MEDS: LACTULOSE SYRUP 20 GM/30 ML UDC PO SCH ×3 (02:06→17:00)
[2018-12-23] MEDS ORDERED: LACTULOSE SYRUP 20 GM/30 ML UDC PO SCH (02:45)
--- NOTE | 2018-12-23 03:00 | NUR ---
pt received from er via stretcher. no ss of distress noted up admission. pt oriented to rm and made comfortable. hx obtained from medical record. will cont to follow poc. call bella within reach.
--- NOTE | 2018-12-23 05:42 | NUR ---
pt resting. no ss of distress noted. call bella within reach.
[2018-12-23] MEDS ORDERED: TRAZODONE HCL 50 MG TAB PO PRN (07:30)
[2018-12-23] MEDS ORDERED: HYDRALAZINE HCL 20 MG/ML VIAL IV PRN (07:30)
[2018-12-23] MEDS ORDERED: ACETAMINOPHEN 325 MG TAB PO PRN (07:30)
[2018-12-23] MEDS ORDERED: HYDROXYZINE HCL 10 MG TAB PO PRN (07:30)
[2018-12-23] MEDS: PANTOPRAZOLE SOD 40 MG TABEC PO SCH (08:10)
[2018-12-23 08:19] LABS: BASOPHILS % 0.3 % (0.0-1.0); EOSINOPHILS # (AUTO) 0.1 (0.0-0.4); EOSINOPHILS % 1.8 % (0.0-6.0); HEMATOCRIT 30.6 % (34.2-44.1); HEMOGLOBIN 10.9 g/dL (12.0-16.0); LYMPHOCYTES # (AUTO) 2.9 (1.0-3.2); LYMPHOCYTES % 37.9 % (18.0-39.1); MEAN CORPUSCULAR HEMOGLOBIN 36.9 pg (28-32); MEAN CORPUSCULAR HGB CONC 35.6 g/dL (31-35); MEAN CORPUSCULAR VOLUME 103.7 fL (81-99); MONOCYTES # (AUTO) 1.2 (0.2-0.8); MONOCYTES % 15.2 % (4.4-11.3); NEUTROPHILS # (AUTO) 3.5 (2.1-6.9); NEUTROPHILS % 44.5 % (38.7-80.0); PLATELET COUNT 116 x10e3/uL (140-360); RED BLOOD COUNT 2.95 x10e6/uL (3.6-5.1); RED CELL DISTRIBUTION WIDTH 14.9 % (11.7-14.4)
[2018-12-23 08:56] LABS: B-TYPE NATRIURETIC PEPTIDE2 53.6 pg/mL (0-100)
[2018-12-23 08:57] LABS: ALBUMIN 2.5 g/dL (3.5-5.0); ANION GAP 12.2 mmol/L (8-16); BILIRUBIN,DIRECT 1.4 mg/dL (0.0-0.5); CALCIUM 9.7 mg/dL (8.4-10.2); CREATININE, SERUM 1.1 mg/dL (0.57-1.11); MAGNESIUM 2.1 MG/DL (1.3-2.1); POTASSIUM 4.2 mmol/L (3.5-5.1)
--- NOTE | 2018-12-23 09:09 | NUR ---
BEDSIDE SHIFT REPORT RECEIVED, PT SLEEPING, NO DISTRESS NOTED, IVF INFUSING TO R AC 18G NO SS OF INFILTRATION NOTED, CALL LIGHT IN REACH WILL CONTINUE OT MONITOR
[2018-12-23] MEDS: SPIRONOLACTONE 25 MG TAB PO SCH ×2 (09:32→17:00)
[2018-12-23] MEDS: METOPROLOL SUCCINATE 50 MG TAB XL PO SCH (09:32)
[2018-12-23] MEDS: POTASSIUM CHLORIDE 20 MEQ TAB CR PO SCH (09:32)
[2018-12-23] MEDS: SIMVASTATIN 20 MG TAB PO SCH (09:34)
[2018-12-23] MEDS: FUROSEMIDE 20 MG TAB PO SCH (17:00)
[2018-12-23] MEDS ORDERED: ONDANSETRON HCL 4 MG ORAL DISINTEGRATING TAB PO PRN (17:15)
--- NOTE | 2018-12-23 17:27 | NUR ---
Nutrition Screen Note RD Recommendation for Physician: Continue diet as ordered Plan of Care: RD following, monitoring for tolerance and adequacy Nutrition reason for involvement: Nutrition Risk Trigger - MST Primary Diagnose(s):Cirrhosis, hepatic encephalopathy PMH: HTN Ht:59 in Wt:119lb BMI:24 kg/m2 IBW:95lb RD Assessment: (12/23/2018) Chart reviewed. Labs and meds reviewed. Initial encounter with patient. Pt eating better and was eating better TELEPHONE CLERK. Denies any difficulty chewing or swallowing. Pt with C/O constipation. No N,V,D. Current Diet: Cardiac diet Malnutrition Evaluation (12/23/2018) The patient does not meet criteria for a specified degree of malnutrition at this time. Will re-evaluate at follow-up as appropriate. Diet Education Needs Assessment: Diet education offered, but pt refused. Pt educated on a recent admission Nutrition Care Level: Low Signed: Pérez Yip RD, LD, [facility]
--- NOTE | 2018-12-23 19:54 | NUR ---
patient O2 saturation on room air 70% placed on 2L NC per protocol O2 saturation 98
[2018-12-23] MEDS: MIRTAZAPINE 15 MG TAB PO SCH (21:28)
[2018-12-24] VITALS (7 sets, daily range): BP systolic 102–117; BP diastolic 52–61
[2018-12-24 05:45] LABS: BASOPHILS % 0.5 % (0.0-1.0); EOSINOPHILS # (AUTO) 0.2 (0.0-0.4); EOSINOPHILS % 3.1 % (0.0-6.0); HEMATOCRIT 32.7 % (34.2-44.1); HEMOGLOBIN 11.1 g/dL (12.0-16.0); LYMPHOCYTES # (AUTO) 2.5 (1.0-3.2); LYMPHOCYTES % 34.4 % (18.0-39.1); MEAN CORPUSCULAR HEMOGLOBIN 36.3 pg (28-32); MEAN CORPUSCULAR HGB CONC 33.9 g/dL (31-35); MEAN CORPUSCULAR VOLUME 106.9 fL (81-99); MONOCYTES # (AUTO) 1.1 (0.2-0.8); MONOCYTES % 15.2 % (4.4-11.3); NEUTROPHILS # (AUTO) 3.4 (2.1-6.9); NEUTROPHILS % 46.5 % (38.7-80.0); PLATELET COUNT 105 x10e3/uL (140-360); RED BLOOD COUNT 3.06 x10e6/uL (3.6-5.1); RED CELL DISTRIBUTION WIDTH 15.1 % (11.7-14.4)
[2018-12-24] MEDS: FUROSEMIDE 20 MG TAB PO SCH ×2 (06:03→17:36)
[2018-12-24 06:07] LABS: ALBUMIN 2.5 g/dL (3.5-5.0); ALBUMIN/GLOBULIN RATIO 0.4 (0.8-2.0); ANION GAP 9.5 mmol/L (8-16); CALCIUM 9.4 mg/dL (8.4-10.2); CREATININE, SERUM 1.02 mg/dL (0.57-1.11); POTASSIUM 4.5 mmol/L (3.5-5.1)
--- NOTE | 2018-12-24 07:19 | NUR ---
RECEIVED PATIENT ASLEEP IN BED AT THIS TIME. NO SIGNS OF DISTRESS. BED LOW, WHEELS LOCKED, SIDE RAILS X2. CALL LIGHT IN REACH WILL CONTINUE TO MONITOR.
[2018-12-24] MEDS: SPIRONOLACTONE 25 MG TAB PO SCH ×2 (09:16→17:36)
[2018-12-24] MEDS: PANTOPRAZOLE SOD 40 MG TABEC PO SCH (09:16)
[2018-12-24] MEDS: POTASSIUM CHLORIDE 20 MEQ TAB CR PO SCH (09:16)
[2018-12-24] MEDS: METOPROLOL SUCCINATE 50 MG TAB XL PO SCH (09:16)
[2018-12-24] MEDS: SIMVASTATIN 20 MG TAB PO SCH (09:16)
[2018-12-24] MEDS: LACTULOSE SYRUP 20 GM/30 ML UDC PO SCH ×2 (09:16→17:36)
--- NOTE | 2018-12-24 09:25 | NUR ---
PATIENT A/O X3 EVEN RESPIRATIONS ON 1.5LNC. PATIENT AMBULATES WITH STANDBY ASSISTANCE. RIGHT HAND 20 [address]. IV INTACT AND PATENT. NO PAIN OR DISTRESS. VITAL SIGNS STABLE. CALL LIGHT IN REACH. WILL CONTINUE TO MONITOR PATIENT.
[2018-12-24] MEDS ORDERED: BISACODYL 5 MG TAB EC PO ONE (21:30)
[2018-12-24] MEDS: MIRTAZAPINE 15 MG TAB PO SCH (21:58)
[2018-12-25 00:32] VITALS: BP 128/61
[2018-12-25 05:48] LABS: BASOPHILS # (AUTO) 0.1 (0.0-0.1); BASOPHILS % 0.6 % (0.0-1.0); EOSINOPHILS # (AUTO) 0.3 (0.0-0.4); HEMATOCRIT 32.4 % (34.2-44.1); HEMOGLOBIN 11.6 g/dL (12.0-16.0); LYMPHOCYTES % 35.7 % (18.0-39.1); MEAN CORPUSCULAR HEMOGLOBIN 37.7 pg (28-32); MEAN CORPUSCULAR HGB CONC 35.8 g/dL (31-35); MEAN CORPUSCULAR VOLUME 105.2 fL (81-99); MONOCYTES # (AUTO) 1.3 (0.2-0.8); MONOCYTES % 15.5 % (4.4-11.3); NEUTROPHILS # (AUTO) 3.6 (2.1-6.9); NEUTROPHILS % 43.8 % (38.7-80.0); PLATELET COUNT 114 x10e3/uL (140-360); RED BLOOD COUNT 3.08 x10e6/uL (3.6-5.1); RED CELL DISTRIBUTION WIDTH 14.8 % (11.7-14.4)
[2018-12-25 06:05] LABS: CALCIUM 9.4 mg/dL (8.4-10.2); CREATININE, SERUM 1.05 mg/dL (0.57-1.11); MAGNESIUM 1.9 MG/DL (1.3-2.1); PHOSPHORUS 2.8 MG/DL (2.3-4.7)
[2018-12-25] MEDS: FUROSEMIDE 20 MG TAB PO SCH ×3 (06:18→17:38)
--- NOTE | 2018-12-25 06:57 | NUR ---
RECEIVED PATIENT AND WALKING ROUNDS COMPLETE. PATIENT ASLEEP IN BED AT THIS TIME. NO SIGNS OF DISTRESS. BED LOW, WHEELS LOCKED, SIDE RAILS X2. CALL LIGHT IN REACH WILL CONTINUE TO MONITOR.
[2018-12-25 07:39] VITALS: BP 105/58
[2018-12-25] MEDS: METOPROLOL SUCCINATE 50 MG TAB XL PO SCH (07:40)
[2018-12-25] MEDS: POTASSIUM CHLORIDE 20 MEQ TAB CR PO SCH (08:35)
[2018-12-25] MEDS: PANTOPRAZOLE SOD 40 MG TABEC PO SCH (08:35)
[2018-12-25] MEDS: SPIRONOLACTONE 25 MG TAB PO SCH ×2 (08:35→17:38)
[2018-12-25] MEDS: LACTULOSE SYRUP 20 GM/30 ML UDC PO SCH ×4 (08:35→21:00)
[2018-12-25 08:37] VITALS: BP 105/58
--- NOTE | 2018-12-25 08:50 | NUR ---
PATIENT A/O X3, EVEN RESPIRATIONS ON RA. LUNG SOUNDS CLEAR TO AUSCULTATION. BOWEL SOUNDS ACTIVE, SKIN INTACT, NO EDEMA. SCD'S BILATERALLY. RIGHT AC 18 GAUGE IV INTACT AND PATENT SALINE LOCKED. PATIENT AMBULATORY WITH STANDBY ASSIST. VITAL SIGNS STABLE. CALL LIGHT IN REACH WILL CONTINUE TO MONITOR PATIENT.
--- NOTE | 2018-12-25 10:25 | NUR ---
NOTIFIED MAGAZINE EDITOR DAMIAN OF PATIENT COMPLAINT OF ABDOMINAL PAIN/CONSTIPATION. MILK OF MAG X1 GIVEN TO PATIENT.
[2018-12-25] MEDS ORDERED: MAGNESIUM HYDROXIDE 30 ML UDC PO ONE (10:30)
[2018-12-25 11:45] VITALS: BP 133/68
[2018-12-25] MEDS ORDERED: HYDROCODONE/APAP 7.5MG-325MG 1 EA TAB PO PRN (12:15)
[2018-12-25] MEDS ORDERED: TRAMADOL HCL 50 MG TAB PO PRN ×2 (12:15)
--- NOTE | 2018-12-25 13:03 | NUR ---
PAGED FURNITURE ASSEMBLER AND INSTALLER DAMIAN REGARDING PATIENT COMPLAINT OF VOMITING/ABDOMINAL PAIN. NEW ORDER FOR KUB.
--- NOTE | 2018-12-25 15:36 | Diagnostic Imaging Report ---
Exam: KUB - 1 view Clinical History: Abdominal pain, vomiting, evaluate for constipation. Comparison: CT abdomen/pelvis with contrast 12/11/2018. Findings: Nonobstructive bowel gas pattern. No significant amount of stool in the colon. No evidence of nephrolithiasis. Likely calcified phleboliths in the pelvis. Degenerative changes in the lower lumbar spine and pubic symphysis. Impression: No acute radiographic abnormality. Signed by: Dr. Radha Atkinson MD on 12/25/2018 3:33 PM
[2018-12-25 16:00] VITALS: BP 112/57
[2018-12-25 20:24] VITALS: BP 129/62
[2018-12-25] MEDS: MIRTAZAPINE 15 MG TAB PO SCH (21:33)
[2018-12-25] MEDS: SIMVASTATIN 20 MG TAB PO SCH (21:33)
[2018-12-26] VITALS (9 sets, daily range): BP systolic 103–120; BP diastolic 56–65
[2018-12-26] MEDS: FUROSEMIDE 20 MG TAB PO SCH ×2 (05:52→17:09)
[2018-12-26 05:54] LABS: BASOPHILS # (AUTO) 0.1 (0.0-0.1); BASOPHILS % 0.7 % (0.0-1.0); EOSINOPHILS # (AUTO) 0.1 (0.0-0.4); EOSINOPHILS % 1.2 % (0.0-6.0); HEMATOCRIT 35.8 % (34.2-44.1); HEMOGLOBIN 12.3 g/dL (12.0-16.0); LYMPHOCYTES % 21.4 % (18.0-39.1); MEAN CORPUSCULAR HEMOGLOBIN 36.8 pg (28-32); MEAN CORPUSCULAR HGB CONC 34.4 g/dL (31-35); MEAN CORPUSCULAR VOLUME 107.2 fL (81-99); MONOCYTES # (AUTO) 1.2 (0.2-0.8); MONOCYTES % 13.5 % (4.4-11.3); NEUTROPHILS # (AUTO) 5.7 (2.1-6.9); NEUTROPHILS % 62.8 % (38.7-80.0); PLATELET COUNT 116 x10e3/uL (140-360); RED BLOOD COUNT 3.34 x10e6/uL (3.6-5.1); RED CELL DISTRIBUTION WIDTH 14.8 % (11.7-14.4)
[2018-12-26 06:12] LABS: ALBUMIN 2.9 g/dL (3.5-5.0); ALBUMIN/GLOBULIN RATIO 0.4 (0.8-2.0); ANION GAP 13.9 mmol/L (8-16); CALCIUM 10.4 mg/dL (8.4-10.2); CREATININE, SERUM 1.7 mg/dL (0.57-1.11); POTASSIUM 3.9 mmol/L (3.5-5.1)
--- NOTE | 2018-12-26 07:10 | NUR ---
bedside report received, pt stable, no distress noted, updated on poc voiced understanding, daughter at bedside, denies pain at this time, call light in reach will continue ot monitor
[2018-12-26] MEDS ORDERED: SODIUM CHLORIDE 1 GM TAB PO SCH ×2 (09:00→09:15)
[2018-12-26] MEDS ORDERED: SODIUM CHLORIDE 0.9% 500ML 500 ML IV ONE (09:00)
[2018-12-26] MEDS: PANTOPRAZOLE SOD 40 MG TABEC PO SCH (09:20)
[2018-12-26] MEDS: SPIRONOLACTONE 25 MG TAB PO SCH ×2 (09:20→17:09)
[2018-12-26] MEDS: POTASSIUM CHLORIDE 20 MEQ TAB CR PO SCH (09:21)
[2018-12-26] MEDS: MEGESTROL ACETATE 40 MG TAB PO SCH ×2 (09:22→17:09)
[2018-12-26] MEDS: METOPROLOL SUCCINATE 50 MG TAB XL PO SCH (09:23)
[2018-12-26] MEDS: LACTULOSE SYRUP 20 GM/30 ML UDC PO SCH ×4 (09:24→20:53)
--- NOTE | 2018-12-26 15:26 | NUR ---
Nutrition Follow-up Note RD Recommendation for Physician: Continue diet as ordered Plan of Care: RD following, monitoring for tolerance and adequacy Nutrition reason for involvement: Follow up Primary Diagnose(s): Cirrhosis, hepatic encephalopathy PMH: HTN Ht:59 in Wt:119lb BMI:24 kg/m2 IBW:95lb RD Assessment: (12/26/2018) Pt was discussed during AM rounds. Lactulose was given. Na is low at 128 today; diet has changed to regular. Visited pt in the room. Pt reported good appetite with 75% observed meal intake. No complains of nausea or vomiting. LBM 12/26. Current diet is appropriate and adequate. Will continue to monitor and follow. (12/23/2018) Chart reviewed. Labs and meds reviewed. Initial encounter with patient. Pt eating better and was eating better LEGISLATORS. Denies any difficulty chewing or swallowing. Pt with C/O constipation. No N,V,D. Current Diet: Regular diet Malnutrition Evaluation (12/23/2018) The patient does not meet criteria for a specified degree of malnutrition at this time. Will re-evaluate at follow-up as appropriate. Diet Education Needs Assessment: Diet education offered, but pt refused. Pt educated on a recent admission. Nutrition Care Level: Low Signed: Savannah Recinos, MS, RD, LD
--- NOTE | 2018-12-26 19:00 | NUR ---
RECEIVED PATIENT IN BEDSIDE REPORT. PATIENT SITTING UP IN BED EATING AT THIS TIME. FAMILY MEMBERS AT BEDSIDE. NO PAIN REPORTED. R AC 18G IV ASYMPTOMATIC. NO S&S OF DISTRESS NOTED. BED LOCKED IN LOWEST POSITION. SIDE RAILS UP X2. CALL LIGHT IN REACH.
[2018-12-26] MEDS: SIMVASTATIN 20 MG TAB PO SCH (20:53)
[2018-12-26] MEDS: MIRTAZAPINE 15 MG TAB PO SCH (20:53)
--- NOTE | 2018-12-27 03:00 | NUR ---
PATIENT RESTING IN BED. NO PAIN REPORTED. NO S&S OF DISTRESS NOTED.
[2018-12-27 03:12] LABS: BASOPHILS % 0.4 % (0.0-1.0); EOSINOPHILS # (AUTO) 0.3 (0.0-0.4); EOSINOPHILS % 4.5 % (0.0-6.0); HEMOGLOBIN 10.7 g/dL (12.0-16.0); LYMPHOCYTES # (AUTO) 2.7 (1.0-3.2); LYMPHOCYTES % 35.3 % (18.0-39.1); MEAN CORPUSCULAR HEMOGLOBIN 37.4 pg (28-32); MEAN CORPUSCULAR HGB CONC 35.7 g/dL (31-35); MEAN CORPUSCULAR VOLUME 104.9 fL (81-99); MONOCYTES # (AUTO) 1.1 (0.2-0.8); MONOCYTES % 14.1 % (4.4-11.3); NEUTROPHILS # (AUTO) 3.5 (2.1-6.9); NEUTROPHILS % 45.4 % (38.7-80.0); PLATELET COUNT 106 x10e3/uL (140-360); RED BLOOD COUNT 2.86 x10e6/uL (3.6-5.1); RED CELL DISTRIBUTION WIDTH 14.7 % (11.7-14.4)
[2018-12-27 03:33] LABS: ALBUMIN 2.4 g/dL (3.5-5.0); ANION GAP 10.4 mmol/L (8-16); BILIRUBIN,DIRECT 1.4 mg/dL (0.0-0.5); CALCIUM 9.2 mg/dL (8.4-10.2); CREATININE, SERUM 1.22 mg/dL (0.57-1.11); POTASSIUM 3.4 mmol/L (3.5-5.1)
[2018-12-27 03:43] LABS: B-TYPE NATRIURETIC PEPTIDE2 80.4 pg/mL (0-100)
[2018-12-27 04:31] VITALS: BP 104/55
[2018-12-27] MEDS: FUROSEMIDE 20 MG TAB PO SCH (06:04)
--- NOTE | 2018-12-27 07:00 | NUR ---
BEDSIDE ROUNDS COMPLETE NO DISTRESS NOTED,UPDATED ON POC VOICED UNDERSTANDING, DENIES PAIN AT THIS TIME, CALL LIGHT IN REACH WILL CONTINUE TO MONITOR
[2018-12-27 07:38] VITALS: BP 94/51
[2018-12-27] MEDS ORDERED: POTASSIUM CHLORIDE 20 MEQ TAB CR PO STA (08:28)
[2018-12-27] MEDS ORDERED: FUROSEMIDE20 MG PO (08:34)
[2018-12-27] MEDS ORDERED: MEGESTROL ACETA40 MG PO (08:34)
[2018-12-27] MEDS ORDERED: LACTULOSE20 GM/30 M PO (08:34)
[2018-12-27 08:37] VITALS: BP 126/58
[2018-12-27] MEDS: PANTOPRAZOLE SOD 40 MG TABEC PO SCH (08:38)
[2018-12-27] MEDS: SPIRONOLACTONE 25 MG TAB PO SCH (08:39)
[2018-12-27] MEDS: MEGESTROL ACETATE 40 MG TAB PO SCH (08:40)
[2018-12-27] MEDS: POTASSIUM CHLORIDE 20 MEQ TAB CR PO SCH (08:40)
[2018-12-27] MEDS: METOPROLOL SUCCINATE 50 MG TAB XL PO SCH (08:40)
[2018-12-27] MEDS: LACTULOSE SYRUP 20 GM/30 ML UDC PO SCH ×2 (08:40→12:00)
[2018-12-27 08:44] VITALS: BP 126/58
[2018-12-27 11:37] VITALS: BP 123/61
--- NOTE | 2018-12-28 04:53 | Discharge Summary ---
ADMISSION DIAGNOSES: Alcoholic cirrhosis with hyperammonemia, hypertension, anxiety, depression, insomnia, gastroesophageal reflux disease, acute kidney injury, thrombocytopenia, AMS, hypercalcemia, and pancreatitis. DISCHARGE DIAGNOSES: Alcoholic cirrhosis with hyperammonemia, hypertension, anxiety, depression, insomnia, gastroesophageal reflux disease, acute kidney injury, thrombocytopenia, AMS, hypercalcemia, pancreatitis, hypokalemia, and hyponatremia. HISTORY: The patient has a history of hypertension, GERD, hyperlipidemia, alcoholic cirrhosis, insomnia, anxiety, and depression. PAST SURGICAL HISTORY: Tubal ligation, kidney stone surgery, and left breast biopsy. FAMILY HISTORY: The patient's daughter had diabetes and a stroke. SOCIAL HISTORY: The patient admits to alcohol abuse. HOSPITAL COURSE: A 73-year-old female brought to ER by her son. She has a history of cirrhosis without history of elevated ammonia or confusion. The patient admits to sleeping a lot, but is unable to tell me anything else due to AMS. History was pulled from previous records. On admission, patient's ammonia level was 216. Lactulose was started as well as Aldactone and Lasix. She was also given a bolus of IV fluids in the ER. Due to the PRASHANT, the Lasix was changed from 40 b.i.d. to 20 b.i.d. The patient did not have any edema with a decreased dose of Lasix. She was resumed on all medicines for insomnia, anxiety, and depression. After couple of days, the ammonia level came down to normal. Chest x-ray on admission was negative. CT of the brain was negative. KUB was negative. The patient started to refuse lactulose while in the hospital. I explained to her the importance of the lactulose and that she should take medications as prescribed. The patient is feeling much better, no longer has AMS. She will discharge home with a new prescription for lactulose q.i.d., Megace to improve her appetite, and Lasix 20 b.i.d. The patient understands discharge instructions and agrees to plan. Vital signs stable, patient afebrile. Dictated by Nessa Bucio NP MD ALEJANDRA Limon/MODL /[id number]
== END 2018-12-27 12:02 | disposition home or self-care (01) | DRG 432 ==
LOC: ER 21:45 → ERHOLD 12-23 01:32 → MED/SURG 12-23 03:00
PROVIDERS: ADMIT Internal Medicine; ATTEND Internal Medicine
DX: K70.30 Alcoholic cirrhosis of liver without ascites (principal); K85.90 Acute pancreatitis without necrosis or infection, unspecified; N17.9 Acute kidney failure, unspecified; K70.40 Alcoholic hepatic failure without coma; G47.00 Insomnia, unspecified
CPT/HCPCS: 36415; 70450; 71045; 74018; 80048; 80053; 80076; 80320; 81001; 82140; 82150; 83690; 83735; 83880; 84100; 85025; 85610; 85730; 99284; J7030; J7040

== ENCOUNTER → 2019-01-04 | Day surgery (SDC) | payer MEDICARE, OTHER ==
[2019-01-03 15:43] LABS: BASOPHILS % 0.5 % (0.0-1.0); EOSINOPHILS # (AUTO) 0.2 (0.0-0.4); EOSINOPHILS % 2.7 % (0.0-6.0); HEMATOCRIT 32.4 % (34.2-44.1); HEMOGLOBIN 11.5 g/dL (12.0-16.0); LYMPHOCYTES % 34.5 % (18.0-39.1); MEAN CORPUSCULAR HEMOGLOBIN 37.3 pg (28-32); MEAN CORPUSCULAR HGB CONC 35.5 g/dL (31-35); MEAN CORPUSCULAR VOLUME 105.2 fL (81-99); MONOCYTES # (AUTO) 1.3 (0.2-0.8); NEUTROPHILS % 46.9 % (38.7-80.0); PLATELET COUNT 99 x10e3/uL (140-360); RED BLOOD COUNT 3.08 x10e6/uL (3.6-5.1); RED CELL DISTRIBUTION WIDTH 15.3 % (11.7-14.4)
[2019-01-03 15:57] LABS: INR 1.35; PROTHROMBIN TIME 17.3 seconds (11.9-14.5)
[2019-01-03 15:58] LABS: PARTIAL THROMBOPLASTIN TIME 37.1 seconds (23.8-35.5)
[2019-01-03 16:04] LABS: ALBUMIN 2.7 g/dL (3.5-5.0); ALBUMIN/GLOBULIN RATIO 0.4 (0.8-2.0); ANION GAP 11.2 mmol/L (8-16); CALCIUM 9.7 mg/dL (8.4-10.2); CREATININE, SERUM 1.05 mg/dL (0.57-1.11); POTASSIUM 4.2 mmol/L (3.5-5.1)
[~2019-01-04] MED LIST changes: +FUROSEMIDE20 MG PO; +LACTULOSE20 GM/30 M PO; +MEGESTROL ACETA40 MG PO; +METOCLOPRAMIDE HCL 10 MG/2ML VIAL ONE; +PHYTONADIONE 10 MG/ML AMP SC ONE; +PROPOFOL IV EMULSION 10 MG/ML 50 ML VIAL ONE
[2019-01-04 14:30] VITALS: BP 109/55
--- NOTE | 2019-01-04 21:19 | Operative Report ---
DATE OF PROCEDURE: 01/04/2019 SURGEON: Pj Lei MD PROCEDURE: EGD with hot biopsy. INDICATIONS FOR EGD: Upper abdominal pain, history of cirrhosis of the liver. MEDICATIONS: The patient was done under MAC, please see anesthesiologist's note. PROCEDURE IN DETAIL: With the patient in the left lateral decubitus position, a flexible fiberoptic Olympus gastroscope was introduced into the esophagus under direct visualization without any difficulty. Grade 1 to 2 esophageal varices were noted without active bleeding or stigmata of recent hemorrhage. The scope was then advanced with ease into the stomach traversing a moderate-sized hiatal hernia. Large amount of retained undigested food was noted in stomach precluding visualization of the fundus and the proximal two-thirds of the body. An approximately 8 mm friable and oozing nodule was noted in the antrum and the peripyloric area and that was hot biopsied. The pylorus was intubated with ease and the scope was advanced all the way to the second portion of the duodenum. The scope was then withdrawn slowly mucosa overlying the proximal second portion grossly appeared to be within normal limits. The duodenal bulb visualization was limited by the presence also of some retained undigested food stuff. The scope was then withdrawn into the stomach, was subsequently withdrawn. The patient tolerated the procedure well. IMPRESSION: 1. Grade 1 to 2 esophageal varices without active bleeding or stigmata of recent hemorrhage. 2. Hiatal hernia. 3. Large amount of retained undigested food in stomach precluding visualization of fundus and proximal two-thirds of body. 4. Friable oozing approximately 8 mm nodule in antrum, hot biopsied. PLAN: Follow up histology. The patient will need a repeat EGD after 24 hours of clear liquids. Pj Lei MD [facility] /[id number] cc: Itz Kapoor MD
== END | disposition home or self-care (01) ==
LOC: OR 08:54
PROVIDERS: ATTEND Internal Medicine Gastroenterology
DX: K25.9 Gastric ulcer, unspecified as acute or chronic, without hemorrhage or perforation (principal); K31.7 Polyp of stomach and duodenum; K74.69 Other cirrhosis of liver; I85.10 Secondary esophageal varices without bleeding; K44.9 Diaphragmatic hernia without obstruction or gangrene; K31.89 Other diseases of stomach and duodenum; E78.00 Pure hypercholesterolemia, unspecified; I10 Essential (primary) hypertension; N20.0 Calculus of kidney; F41.9 Anxiety disorder, unspecified; Z01.810 Encounter for preprocedural cardiovascular examination; Z01.812 Encounter for preprocedural laboratory examination
CPT/HCPCS: 36415; 43250; 80053; 85025; 85610; 85730; 93005; J2704; J2765; J3430; 43239

== ENCOUNTER 2019-01-15 12:43 | Emergency (ER) | payer MEDICARE, OTHER ==
[~2019-01-15 12:43] MED LIST changes: -METOCLOPRAMIDE HCL 10 MG/2ML VIAL ONE; -PHYTONADIONE 10 MG/ML AMP SC ONE; -PROPOFOL IV EMULSION 10 MG/ML 50 ML VIAL ONE
--- NOTE | 2019-01-15 12:52 | NUR ---
PATIENT REQUESTING TO LEAVE AMA PRIOR TO TRIAGE. PATIENT STATES SHE NEEDS HER "STOMACH DRAINED" AND DOES NOT WANT TO WAIT,PATIENT STATES THAT HER DAUGHTER HAS PLANS FOR TODAY AND CAN NOT WAIT IN ER AND IS REQUESTING AN APPOINTMENT TIME TO HAVE PROCEDURE. PATIENT STATED SHE WANTS TO LEAVE AND COME BACK TOMORROW. EDUCATED PATIENT ON THE RISKS OF LEAVING AGAINST MEDICAL ADVICE,VERBALIZED UNDERSTANDING. PATIENT SIGNED AMA AND AMBULATORY OUT OF THE DEPARTMENT.
== END 2019-01-15 12:52 | disposition left against medical advice (07) ==
LOC: ER 12:43
DX: R18.8 Other ascites (principal)

== ENCOUNTER → 2019-01-16 | Outpatient (CLI) | payer MEDICARE, OTHER ==
--- NOTE | 2019-01-16 15:58 | Diagnostic Imaging Report ---
Date and Time: 01/16/2019 at 3:30 PM Procedure: Ultrasound-guided paracentesis Pre-operative diagnosis: Ascites Post-operative diagnosis: Ascites Conscious Sedation: None The patient's heart rate and pulse oximetry were continuously monitored by the interventional radiology nurse. Blood pressure was monitored at 5 minute intervals. Additional Medications: Lidocaine 1% for local anesthesia Estimated blood loss: Minimal Blood products administered: None Complications: No immediate Specimens: 1400 cc pinkish cloudy fluid Implants: None Condition at completion: Stable Disposition: Discharged to home DISCUSSION: Informed consent was obtained and documented in the medical record after discussion of risks and benefits. The patient was placed in the supine position and the left lower abdominal wall was prepped and draped in the standard sterile fashion. A suitable percutaneous approach to a small amount of ascites in the left lower quadrant was identified and 1% lidocaine was infiltrated into the skin and subcutaneous tissues for local anesthesia. Then under sonographic guidance a 5 [place] Yueh needle catheter was advanced into the ascitic fluid. The catheter was advanced off the needle and connected to vacuum bottle with subsequent evacuation of 1400 cc of pinkish cloudy fluid. The catheter was removed and a sterile dressing was applied. The patient tolerated the procedure well without immediate complication. Specimen was sent to the laboratory for predetermined lab studies. FINDINGS: Small volume ascites. IMPRESSION: Successful ultrasound-guided paracentesis with evacuation of 1400 cc of pinkish cloudy fluid. Specimen was submitted for laboratory analysis as requested by the referring Physician. Signed by: Dr. Glynn Montiel DO on 01/16/2019 3:55 PM
[2019-01-16 16:04] LABS: BODY FLUID APPEARANCE TURBID; BODY FLUID TYPE PERITONEAL
[2019-01-16 16:32] LABS: RBC,BODY FLUID 1877 cells/uL; WBC,BODY FLUID 142 cells/uL
[2019-01-16 17:36] LABS: LYMPHOCYTES,BODY FLUID 3 %; MONO/MACROPHG,BODY FLUID 31 %; NEUTROPHILS,BODY FLUID 12 %
[2019-01-16 17:37] LABS: OTHER CELLS,BODY FLUID 54 %
== END ==
LOC: US 14:00
PROVIDERS: ATTEND Internal Medicine Gastroenterology
DX: R18.8 Other ascites (principal); K74.60 Unspecified cirrhosis of liver
CPT/HCPCS: 36415; 49083; 87070; 87116; 87205; 87206; 88112; 88305; 89051; C1729

== ENCOUNTER → 2019-01-25 | Outpatient (CLI) | payer MEDICARE, OTHER ==
[~2019-01-25] MED LIST changes: +BACTRIM DS TAB1 EACH PO; +CEFDINIR300 MG PO; +CENTRUM SILVER1 EAC4 PO; +CONSTULOSE10 GM/15 M PO; +MELATONIN3 MG PO; +MIDODRINE HCL5 MG PO; +POTASSIUM CHLO20 ME1 PO; +SPIRONOLACTONE25 MG PO; +ULTRAM 50MG50 MG PO; +XIFAXAN550 MG PO; +ZOFRAN4 MG PO
--- NOTE | 2019-01-25 17:00 | Diagnostic Imaging Report ---
Date and Time: 01/25/2019 Procedure: Ultrasound-guided paracentesis Pre-operative diagnosis: Ascites Post-operative diagnosis: Ascites Conscious Sedation: None The patient's heart rate and pulse oximetry were continuously monitored by the interventional radiology nurse. Blood pressure was monitored at 5 minute intervals. Additional Medications: Lidocaine 1% for local anesthesia Estimated blood loss: Minimal Blood products administered: None Complications: No immediate Specimens: 1275-cc pink, cloudy fluid Implants: None Condition at completion: Stable Disposition: Discharged to home DISCUSSION: Informed consent was obtained and documented in the medical record after discussion of risks and benefits. The patient was placed in the supine position and the right lower abdominal wall was prepped and draped in the standard sterile fashion. A suitable percutaneous approach to a small amount of ascites in the right lower quadrant was identified and 1% lidocaine was infiltrated into the skin and subcutaneous tissues for local anesthesia. Then under sonographic guidance a 5 [place] Citizen Yueh needle catheter was advanced into the ascitic fluid. The catheter was advanced off the needle and connected to vacuum bottle with subsequent evacuation of 1275 cc of pink cloudy fluid. The catheter was removed and a sterile dressing was applied. The patient tolerated the procedure well without immediate complication. Specimen was sent for laboratory analysis as requested by the referring clinical team. FINDINGS: Small volume ascites. IMPRESSION: Successful ultrasound-guided paracentesis with evacuation of 1275 cc pink, cloudy fluid. Signed by: Dr. Stefan Sandoval M.D. on 01/25/2019 4:57 PM
[2019-01-25 17:37] LABS: LYMPHOCYTES,BODY FLUID 3 %; MONO/MACROPHG,BODY FLUID 7 %; NEUTROPHILS,BODY FLUID 14 %
[2019-01-25 17:38] LABS: OTHER CELLS,BODY FLUID 76 %
[2019-01-25 17:42] LABS: BODY FLUID APPEARANCE CLOUDY; BODY FLUID TYPE PERITONEAL
[2019-01-25 20:35] LABS: RBC,BODY FLUID 494 cells/uL; WBC,BODY FLUID 21 cells/uL
== END ==
LOC: US 13:01
PROVIDERS: ATTEND Internal Medicine Gastroenterology
DX: R18.8 Other ascites (principal); K74.60 Unspecified cirrhosis of liver
CPT/HCPCS: 36415; 49083; 87070; 87116; 87205; 87206; 88112; 88305; 89051; C1729

== ENCOUNTER → 2019-01-29 | Outpatient (CLI) | payer MEDICARE, OTHER ==
--- NOTE | 2019-01-29 16:30 | Diagnostic Imaging Report ---
Procedure: Ultrasound-guided therapeutic paracentesis hot mix operator: Bev Roberson MD Pre-operative diagnosis: Ascites Post-operative diagnosis: Ascites Conscious Sedation: The patient's heart rate and pulse oximetry were continuously monitored by the IR nurse. Additional Medications: Lidocaine 1% for local anesthesia Estimated blood loss: Minimal Specimens: 950 cc of serous ascites Implants: None TECHNIQUE/FINDINGS: Informed consent was obtained from the patient and documented in the medical record. The patient was placed in the supine position. Initial ultrasound demonstrated ascites. The right lower abdomen was prepped and draped in standard sterile fashion. 1% lidocaine was infiltrated into the skin and subcutaneous tissues for local anesthesia. Then under continuous sonographic guidance, a 5 Fr catheter was advanced into the peritoneal space. The catheter was connected to vacuum bottle with subsequent evacuation of 950 cc of serous fluid. The catheter was removed. Dermabond and sterile dressing was applied. Sample was sent to the lab. The patient tolerated the procedure well. IMPRESSION: Ultrasound-guided paracentesis with removal of 950 cc of serous fluid. Signed by: Bev Roberson MD on 01/29/2019 4:27 PM
== END ==
LOC: US 13:57
PROVIDERS: ATTEND Internal Medicine Gastroenterology
DX: R18.8 Other ascites (principal)
CPT/HCPCS: 49083

== ENCOUNTER 2019-02-03 15:19 | Observation (INO) | payer MEDICARE, OTHER ==
[~2019-02-03] VITALS: Ht 149.9 cm; Wt 58.7 kg
[~2019-02-03 15:19] MED LIST changes: -BACTRIM DS TAB1 EACH PO; -CEFDINIR300 MG PO; -CENTRUM SILVER1 EAC4 PO; -CONSTULOSE10 GM/15 M PO; -MELATONIN3 MG PO; -MIDODRINE HCL5 MG PO; -POTASSIUM CHLO20 ME1 PO; -SPIRONOLACTONE25 MG PO; -ULTRAM 50MG50 MG PO; -XIFAXAN550 MG PO; -ZOFRAN4 MG PO
--- OUTSIDE RECORDS SUMMARY | 2019-02-03 15:22 | XMS REPORT | Encounter Summary ---
Author Organization Unknown Address [address] [place] [address] Phone [phone] Care Team Providers Care Automation Operator Name Role Phone Dr. Itz Pozo 3 [phone] [facility] 2 [phone] Cliff Christie 107 [phone] Pj Lei MD 210 [phone] Reason for Visit other - see typed reason; skin problem/rash Instructions 1. Allergic contact dermatitis triamcinolone acetonide 0.5 % topical ointment 2. Cirrhosis of liver 3. Ascites Discussion Note: None recorded. Patient educational handouts: No information available. Plan of Care Reminders Provider Appointments None recorded. Lab None recorded. Referral None recorded. Procedures None recorded. Surgeries None recorded. Imaging None recorded. Medications Name Start Date furosemide 20 mg tablet Take 1 tablet every day by oral route. Klor-Con 20 mEq tablet,extended release Take 1 tablet twice a day by oral route. lactulose 20 gram/30 mL oral solution Take 20 g 4 times a day by oral route. megestrol 40 mg tablet Take 2 tablets twice a day by oral route. metoprolol succinate ER 50 mg tablet,extended release 24 hr Take 1 tablet every day by oral route. omeprazole 40 mg capsule,delayed release Take 1 capsule every day by oral route. rosuvastatin 10 mg tablet Take 1 tablet every day by oral route as directed for 90 days. triamcinolone acetonide 0.5 % topical ointment APPLY A THIN LAYER TO THE AFFECTED AREA(S) BY TOPICAL ROUTE 2 TIMES PER DAY FOR UP 2 WEEKS Medications Administered None recorded. Vitals Height Weight BMI Blood Pressure 4 ft 11 in 124.2 lbs 25.1 kg/m2 104/62 mm[Hg] Lab Results None recorded. Allergies Code Code System Name Reaction Severity Status Onset NKDA Problems Name Status Onset Date Source Gastroesophageal Reflux Disease Active 05/28/2018 Hyperlipidemia Active 11/01/2018 Hypertensive Disorder Active Procedures Date Name Performed by 07/31/1992 Other Information not available 07/31/1974 Hysterectomy (Total) Information not available 07/31/1974 Tubal Ligation Information not available Colonoscopy Information not available Vaccine List Vaccine Type influenza, high dose seasonal 05/28/20180.5 mL pneumococcal conjugate PCV 13 05/28/20180.5 mL zoster subunit 11/28/2018 Social History Smoking Status Never Smoker Past Encounters 01/21/2019 Allergic Contact Dermatitis; Cirrhosis of Liver; Ascites Itz Kapoor MD: [address] [place] [address], Ph. History of Present Illness Note:Hx of liver cirrhosis and chronic ascites (followed by GI) s/p paracentesis 5 days ago complaining of erythema and itchiness in the location where the procedure was performed and a band aid was placed. Denies fever or abdominal pain. Review of Systems Comprehensive General Adult ROS Reported By: Patient Constitutional: Constitutional: no fever Cardiovascular: Cardiovascular: no chest pain, no palpitations, no lightheadedness, shortness of breath when lying down Respiratory: Respiratory: no cough, no wheezing Gastrointestinal: Gastrointestinal: no abdominal pain, no nausea, no vomiting, no constipation, no diarrhea Musculoskeletal: Musculoskeletal: no muscle aches, no muscle weakness, no arthralgias/joint pain, no back pain, swelling in the extremities Integumentary: Skin: no rashes Neurologic: Neurologic: no loss of consciousness, no headaches Psychiatric: Psych: no depression, no anxiety, no suicidal thoughts, alcohol abuse Endocrine: Endocrine: no fatigue Physical Exam General Adult Exam (male) Reported By: Patient Constitutional: Level of Distress: NAD. Ambulation: ambulating normally Psychiatric: Insight: good judgement. Mental Status: active and alert, normal mood, normal affect. Orientation: to time, to place, to person. Memory: recent memory normal, remote memory normal Eyes: Lids and Conjunctivae: non-injected, no discharge ENMT: Ears: TMs clear. Nose: no sinus tenderness. Lips, Teeth, and Gums: no mouth or lip ulcers. Oropharynx: moist mucous membranes Neck: Neck: supple, trachea midline Lungs: Auscultation: decreased breath sounds Cardiovascular: Heart Auscultation: RRR, normal S1, normal S2, no murmurs Abdomen: Inspection and Palpation: soft, no tenderness, no guarding, no rebound tenderness, no masses, distended; erythematous lesions in the left side of the abdomen with flaking skin Musculoskeletal:: Extremities: edema Neurologic: Gait and Station: normal gait
--- OUTSIDE RECORDS SUMMARY | 2019-02-03 15:22 | XMS REPORT | Encounter Summary ---
Author Organization Unknown Address [address] [place] [address] Phone [phone] Care Team Providers Care Amusement Park Entertainer Name Role Phone Dr. Itz Pozo 3 [phone] [facility] 2 [phone] Cliff Christie 107 [phone] Pj Lei MD 210 [phone] Reason for Visit Hypertensive disorder; skin problem/rash Instructions 1. Purpura CBC w/ auto diff CMP, serum or plasma PT/PTT, plasma 2. Cirrhosis and chronic liver disease lactulose 20 gram/30 mL oral solution spironolactone 25 mg tablet 3. Hypertensive disorder metoprolol succinate ER 50 mg tablet,extended release 24 hr 4. Edema furosemide 20 mg tablet 5. Body mass index 25-29 - overweight learning about healthy weight 6. Overweight 7. Hypokalemia K-Tab 20 mEq tablet,extended release Discussion Note: None recorded. Plan of Care Reminders Provider Appointments Est Patient 02/06/2019 1:30PM Itz Kapoor MD Lab CBC W/ Auto Diff 01/30/2019 [facility] CMP, Serum or Plasma 01/30/2019 [facility] PT/PTT, Plasma 01/30/2019 [facility] Referral None recorded. Procedures None recorded. Surgeries None recorded. Imaging None recorded. Medications Name Start Date furosemide 20 mg tablet Take 1 tablet twice a day by oral route. K-Tab 20 mEq tablet,extended release Take 1 tablet twice a day by oral route. lactulose 20 gram/30 mL oral solution Take 20 g 4 times a day by oral route for 90 days. megestrol 40 mg tablet Take 2 tablets twice a day by oral route. metoprolol succinate ER 50 mg tablet,extended release 24 hr Take 1 tablet every day by oral route. omeprazole 40 mg capsule,delayed release Take 1 capsule every day by oral route. rosuvastatin 10 mg tablet Take 1 tablet every day by oral route as directed for 90 days. spironolactone 25 mg tablet Take 1 tablet every day by oral route as directed for 30 days. triamcinolone acetonide 0.5 % topical ointment APPLY A THIN LAYER TO THE AFFECTED AREA(S) BY TOPICAL ROUTE 2 TIMES PER DAY FOR UP 2 WEEKS Xifaxan 550 mg tablet Take 1 tablet twice a day by oral route. Medications Administered None recorded. Vitals Height Weight BMI Blood Pressure 4 ft 11 in 124.2 lbs 25.1 kg/m2 104/68 mm[Hg] Lab Results None recorded. Allergies Code Code System Name Reaction Severity Status Onset NKDA Problems Name Status Onset Date Source Gastroesophageal Reflux Disease Active 05/28/2018 Hyperlipidemia Active 11/01/2018 Alcohol Abuse Active 01/30/2019 Cirrhosis of Liver Active 01/30/2019 Hypertensive Disorder Active Procedures Date Name Performed by 07/31/1992 Other Information not available 07/31/1974 Hysterectomy (Total) Information not available 07/31/1974 Tubal Ligation Information not available Colonoscopy Information not available Vaccine List Vaccine Type influenza, high dose seasonal 05/28/20180.5 mL pneumococcal conjugate PCV 13 05/28/20180.5 mL zoster subunit 11/28/2018 Social History Smoking Status Never Smoker Past Encounters 01/30/2019 Purpura; Cirrhosis and Chronic Liver Disease; Hypertensive Disorder; Edema; Body Mass Index 25-29 - Overweight; Overweight; Hypokalemia Itz Kapoor MD: [address] [place] [phone], Ph. 01/21/2019 Allergic Contact Dermatitis; Cirrhosis of Liver; Ascites Itz Kapoor MD: [address] [place] [address], Ph. History of Present Illness Note:Hx of liver cirrhosis and chronic ascites complaining of diffuse multiple bruises throughout the body since a few days ago. Denies fever or abdominal pain. Review of [...] pain, swelling in the extremities Integumentary: Skin: growths/lesions Neurologic: Neurologic: no loss of consciousness, no headaches Psychiatric: Psych: no depression, no anxiety, no suicidal thoughts Endocrine: Endocrine: no fatigue Physical Exam General [...] no guarding, no rebound tenderness, no masses, distended Musculoskeletal:: Extremities: edema Neurologic: Gait and Station: normal gait Skin: Inspection and palpation: ; purpura in legs, abdomen and buttocks
[2019-02-03] MEDS ORDERED: ONDANSETRON HCL INJ 2MG/ML 2ML 2 MG/ML VIAL IV ONE (16:00)
[2019-02-03 16:14] LABS: BASOPHILS % 0.4 % (0.0-1.0); EOSINOPHILS # (AUTO) 0.2 (0.0-0.4); EOSINOPHILS % 2.5 % (0.0-6.0); LYMPHOCYTES # (AUTO) 2.6 (1.0-3.2); LYMPHOCYTES % 33.6 % (18.0-39.1); MEAN CORPUSCULAR HEMOGLOBIN 37.3 pg (28-32); MEAN CORPUSCULAR HGB CONC 34.5 g/dL (31-35); MEAN CORPUSCULAR VOLUME 108.2 fL (81-99); MONOCYTES % 13.5 % (4.4-11.3); NEUTROPHILS # (AUTO) 3.8 (2.1-6.9); NEUTROPHILS % 49.5 % (38.7-80.0); PLATELET COUNT 144 x10e3/uL (140-360); RED BLOOD COUNT 2.68 x10e6/uL (3.6-5.1); RED CELL DISTRIBUTION WIDTH 19.3 % (11.7-14.4)
[2019-02-03] MEDS ORDERED: MORPHINE SULFATE INJ 4 MG/ML INJ 1ML IV ONE (16:30)
[2019-02-03 16:36] LABS: INR 1.3; PROTHROMBIN TIME 16.8 seconds (11.9-14.5)
[2019-02-03 16:37] LABS: PARTIAL THROMBOPLASTIN TIME 36.3 seconds (23.8-35.5)
[2019-02-03 16:45] LABS: ALBUMIN 2.2 g/dL (3.5-5.0); ALBUMIN/GLOBULIN RATIO 0.4 (0.8-2.0); ANION GAP 13.6 mmol/L (8-16); CALCIUM 9.3 mg/dL (8.4-10.2); CREATININE, SERUM 1.2 mg/dL (0.57-1.11); POTASSIUM 3.6 mmol/L (3.5-5.1)
--- NOTE | 2019-02-03 18:16 | Diagnostic Imaging Report ---
EXAMINATION: CHEST SINGLE (PORTABLE) INDICATION: ^SOB ^[id number] ^[id number] ^Y COMPARISON: Chest radiograph 12/22/2018 FINDINGS: AP view TUBES and LINES: None. LUNGS: Lungs are well inflated. Chronic bilateral hilar peribronchial wall thickening and mild bronchiectasis with subsegmental atelectasis in the right lower lobe. No new consolidations or pulmonary edema. PLEURA: No pleural effusion or pneumothorax. HEART AND MEDIASTINUM: The cardiomediastinal silhouette is unremarkable.. BONES AND SOFT TISSUES: No acute osseous lesion. Soft tissues are unremarkable. UPPER ABDOMEN: No free air under the diaphragm. IMPRESSION: Chronic bilateral hilar and lower lobes peribronchial wall thickening and subsegmental atelectasis. No acute abnormalities. Signed by: Dr. Myla Marie M.D. on 02/03/2019 6:13 PM
[2019-02-03] MEDS ORDERED: ONDANSETRON HCL INJ 2MG/ML 2ML 2 MG/ML VIAL IV PRN (19:15)
[2019-02-03] MEDS ORDERED: SODIUM CHLORIDE FLUSH 10 ML SYR INJ PRN (19:15)
[2019-02-03] MEDS ORDERED: MORPHINE SULFATE INJ 4 MG/ML INJ 1ML IV PRN (19:15)
[2019-02-03 20:00] VITALS: BP 139/67
--- NOTE | 2019-02-03 20:46 | NUR ---
Patient arrived via wheelchair from ER. Oriented to environment and call light. Call light within reach. Will continue to monitor.
[2019-02-03] MEDS ORDERED: SPIRONOLACTONE25 MG PO (21:29)
[2019-02-03 22:00] VITALS: BP 139/67
[2019-02-04] VITALS: BP 128/60
[2019-02-04 04:00] VITALS: BP 100/58
[2019-02-04] MEDS ORDERED: ULTRAM 50MG50 MG PO (06:38)
--- NOTE | 2019-02-04 07:28 | NUR ---
RECEIVED PATIENT AWAKE RESTING IN BED NO SIGNS OF DISTRESS. BED LOW, WHEELS LOCKED, SIDE RAILS X2. CALL LIGHT IN REACH WILL CONTINUE TO MONITOR PATIENT.
[2019-02-04] MEDS: PANTOPRAZOLE SOD 40 MG TABEC PO SCH ×2 (07:30→10:44)
[2019-02-04 08:00] VITALS: BP 124/63
[2019-02-04] MEDS: MEGESTROL ACETATE 40 MG TAB PO SCH ×2 (08:17→10:44)
[2019-02-04] MEDS: SPIRONOLACTONE 25 MG TAB PO SCH ×2 (08:17→10:44)
[2019-02-04] MEDS: LACTULOSE SYRUP 20 GM/30 ML UDC PO SCH ×2 (08:17→10:44)
--- NOTE | 2019-02-04 09:00 | NUR ---
PATIENT A/O X3, EVEN RESPIRATIONS ON RA. BOWEL SOUNDS ACTIVE, SKIN INTACT, NO EDEMA. LEFT AC 20 GAUGE IV SL. IV INTACT/PATENT. PATIENT AMBULATES AND VOIDS IN TOILET. NPO FOR PARACENTESIS TODAY. VITAL SIGNS STABLE. CALL LIGHT IN REACH. WILL CONTINUE TO MONITOR PATIENT.
[2019-02-04 09:14] VITALS: BP 124/63
--- NOTE | 2019-02-04 10:40 | NUR ---
PARACENTESIS COMPLETE. 2400 DRAINED. PATIENT TOLERATED WELL.
[2019-02-04 11:32] VITALS: BP 126/58
--- NOTE | 2019-02-04 12:24 | Diagnostic Imaging Report ---
PROCEDURE: CT ABDOMEN AND PELVIS WITHOUT CONTRAST TECHNIQUE: The abdomen and pelvis were scanned utilizing a multidetector helical scanner from the diaphragm to the lesser trochanter. No oral or intravenous contrast was administered per referring physician request. Coronal and sagittal multiplanar reformations were obtained. COMPARISON: 04/18/2014. INDICATIONS: ASCITES, status post paracentesis FINDINGS: ABSENCE OF INTRAVENOUS CONTRAST DECREASES SENSITIVITY FOR DETECTION OF FOCAL LESIONS AND VASCULAR PATHOLOGY. LOWER THORAX: Unchanged 3 mm nodule laterally within the right lower lobe (series 2 image 7). Subsegmental atelectasis or fibrotic changes of the lung bases.. HEPATOBILIARY: Cirrhotic morphology of the liver with external nodular contour. No focal hepatic lesion within limitations of noncontrast examination. Multiple radiopaque calculi in the gallbladder. No biliary ductal dilatation. SPLEEN: No splenomegaly. PANCREAS: No focal masses or ductal dilatation. ADRENALS: No adrenal nodules. KIDNEYS/URETERS: No hydronephrosis, stones, or solid mass lesions. PELVIC ORGANS/BLADDER: The urinary bladder is incompletely distended and poorly evaluated. The uterus is neutral in position with its suspected thickening of the endometrium, measuring approximately 2 cm on the sagittal view (series 300, image 60). No adnexal mass. PERITONEUM / RETROPERITONEUM: Small amount of perihepatic ascites tracking along the paracolic gutter and into the pelvis, average attenuation 0-5 Hounsfield units. No pneumoperitoneum. LYMPH NODES: No pelvic sidewall or retroperitoneal lymphadenopathy. Mildly prominent gastrohepatic lymph nodes. VESSELS: Limited evaluation in the absence of intravenous contrast. The abdominal aorta is non-aneurysmal with atherosclerotic calcifications throughout. GI TRACT: The large bowel shows no distention or wall thickening. Scattered descending and sigmoid colon diverticula without madan mesocolic inflammation. The appendix is not definitively identified. No right lower quadrant inflammation. No small bowel dilatation to suggest obstruction. BONES AND SOFT TISSUES: Mild anasarca. Otherwise no focal soft tissue abnormalities. No osseous destructive lesions. Multilevel degenerative disc changes and facet arthropathy of the lumbar spine. IMPRESSION: Cirrhosis with small volume residual ascites status post paracentesis. Questionable endometrial thickening should be further evaluated by transvaginal pelvic ultrasound in this postmenopausal patient. Cholelithiasis. Atherosclerotic vascular disease. Large bowel diverticulosis without findings of diverticulitis. Dictated by: Stefan Sandoval M.D. on 02/04/2019 at 12:29 Electronically approved by: Stefan Sandoval M.D. on 02/04/2019 at 12:29
--- NOTE | 2019-02-04 12:37 | Diagnostic Imaging Report ---
PROCEDURE:US GUIDED PARACENTESIS COMPARISON:Prior paracentesis 01/29/2019. Preprocedure diagnosis: Ascites Post procedure diagnosis: Ascites Sedation: None Additional medications: Additional medications: Lidocaine 1% for local anesthesia Estimated blood loss: Minimal Blood products administered: None Implants/graft: None Specimens: 2400 cc milky yellow fluid, discarded Condition at completion: Stable Disposition: Remain in [facility] Procedure in detail: Informed consent was documented in the medical record after discussion of risks and benefits. The patient was placed in the supine position. The right side of the abdomen was prepped and draped in standard sterile fashion. A suitable percutaneous approach to the ascitic fluid was identified and 1% lidocaine was infiltrated into the skin and subcutaneous tissues for local anesthesia. Then under continuous sonographic guidance, a 5 [place] [employer]ader[employer] needle catheter was advanced into the peritoneal space. The catheter was advanced off the needle and connected to vacuum bottle with subsequent evacuation of 2400 cc of milky yellow fluid. The catheter was removed and a sterile dressing was applied. The patient tolerated the procedure well without immediate complication. CONCLUSION: Successful ultrasound-guided paracentesis with evacuation of 2400 cc milky yellow fluid. Dictated by: Stefan Sandoval M.D. on 02/04/2019 at 12:41 Electronically approved by: Stefan Sandoval M.D. on 02/04/2019 at 12:41
--- NOTE | 2019-02-04 12:53 | NUR ---
REMOVED PATIENTS IV. CATHETER TIP INTACT AND PRESSURE DRESSING APPLIED.
--- NOTE | 2019-02-04 13:27 | NUR ---
PATIENT DISCHARGED FROM FACILITY. PATIENT GATHERED ALL PERSONAL BELONGINGS, DISCHARGE INSTRUCTIONS, AND FOLLOW UP INFORMATION. PATIENT LEFT UNIT IN WHEELCHAIR AND WENT HOME VIA PRIVATE AUTO. NO SIGNS OF DISTRESS WHEN LEAVING FACILITY.
[2019-02-04] MEDS ORDERED: FUROSEMIDE 20 MG TAB PO SCH (18:00)
--- NOTE | 2019-02-04 20:17 | Discharge Summary ---
ADMISSION DIAGNOSES: Alcoholic cirrhosis, hypertension, gastroesophageal reflux disease, chronic kidney disease 3, transaminitis. DISCHARGE DIAGNOSES: Alcoholic cirrhosis, hypertension, gastroesophageal reflux disease, chronic kidney disease 3, transaminitis. MEDICAL HISTORY: Hypertension, GERD, hyperlipidemia, alcoholic cirrhosis, insomnia, anxiety, and depression. PAST SURGICAL HISTORY: Tubal ligation, kidney stone surgery, left breast biopsy. FAMILY HISTORY: The patient's daughter had a stroke and diabetes. SOCIAL HISTORY: The patient has a history of alcoholism. HOSPITAL COURSE: A 73-year-old female complains of shortness of breath that has increased since November and left flank pain that began 2 to 3 weeks ago. She has a paracentesis usually every three weeks, but her last one was about 3 weeks ago. She denies nausea, vomiting, and fever. She has chronic diarrhea. On admission, the patient had a chest x-ray that showed chronic bilateral hilar and lower lobe peribronchial wall thickening. No acute abnormality. IR was consulted and the patient went for paracentesis. They pulled off 2.4 L. The patient will be discharged home as her vital signs are stable. She will follow up with primary care in 1 to 2 weeks and continue the normal schedule for paracentesis. The patient understands discharge instructions and agrees to plan. Dictated by Nessa Bucio NP MD ALEJANDRA Limon/MODL /[id number]
== END 2019-02-04 13:27 | disposition home or self-care (01) ==
LOC: ER 15:19 → ERHOLD 19:13 → MED/SURG3 20:16 → MED/SURG 20:36
PROVIDERS: ADMIT Internal Medicine; ATTEND Internal Medicine
DX: K70.31 Alcoholic cirrhosis of liver with ascites (principal); K21.9 Gastro-esophageal reflux disease without esophagitis; I12.9 Hypertensive chronic kidney disease with stage 1 through stage 4 chronic kidney disease, or unspecified chronic kidney disease; N18.3 Chronic kidney disease, stage 3 (moderate); E78.5 Hyperlipidemia, unspecified
CPT/HCPCS: 36415; 49083; 71045; 74176; 74470; 80053; 85025; 85610; 85730; 99284; C1729; G0378 ×2; J2270; J2405; S0164

== ENCOUNTER 2019-02-10 12:17 | Inpatient (IN) | payer MEDICARE ==
[~2019-02-10] VITALS: Ht 149.9 cm; Wt 58.1 kg
[~2019-02-10 12:17] MED LIST changes: +SPIRONOLACTONE25 MG PO; +ULTRAM 50MG50 MG PO
[2019-02-10] MEDS ORDERED: PANTOPRAZOLE 40 MG 10ML VIAL IV ONE (12:44)
[2019-02-10] MEDS ORDERED: SODIUM CHLORIDE 0.9% 500ML 500 ML IV STA (12:44)
[2019-02-10] MEDS ORDERED: ONDANSETRON HCL INJ 2MG/ML 2ML 2 MG/ML VIAL IV ONE (12:45)
[2019-02-10 12:54] LABS: BILIRUBIN,URINE SMALL (NEGATIVE); CLARITY,URINE SL CLOUDY (CLEAR); COLOR,URINE YELLOW (YELLOW); KETONES,URINE TRACE (NEGATIVE); LEUKOCYTE ESTERASE ,URINE NEGATIVE (NEGATIVE); NITRITE,URINE NEGATIVE (NEGATIVE); PROTEIN,URINE DIPSTICK 2+ (NEGATIVE); URINE UROBILINOGEN 0.2 mg/dL (0.2 - 1)
[2019-02-10 13:03] LABS: BACTERIA,URINE FEW /HPF; CALCIUM OXALATE CRYSTALS,UR FEW (FEW); EPITHELIAL CELLS,URINE FEW /LPF; INR 1.4; PROTHROMBIN TIME 17.7 seconds (11.9-14.5)
[2019-02-10 13:04] LABS: MUCUS,URINE FEW (RARE); PARTIAL THROMBOPLASTIN TIME 35.3 seconds (23.8-35.5)
[2019-02-10 13:15] LABS: ALBUMIN 2.2 g/dL (3.5-5.0); ALBUMIN/GLOBULIN RATIO 0.4 (0.8-2.0); ANION GAP 13.6 mmol/L (8-16); CALCIUM 9.7 mg/dL (8.4-10.2); CREATININE, SERUM 1.23 mg/dL (0.57-1.11); MAGNESIUM 2.3 MG/DL (1.3-2.1); POTASSIUM 4.6 mmol/L (3.5-5.1)
[2019-02-10] MEDS ORDERED: CEFTRIAXONE SOD 1 GM/NS 50 ML 50 ML IV ONE (13:15)
[2019-02-10] MEDS ORDERED: CEFTRIAXONE SOD 1 GM VIAL IV ONE (13:15)
[2019-02-10 13:19] LABS: BASOPHILS % 0.3 % (0.0-1.0); EOSINOPHILS % 0.4 % (0.0-6.0); HEMATOCRIT 31.7 % (34.2-44.1); HEMOGLOBIN 11.2 g/dL (12.0-16.0); LYMPHOCYTES # (AUTO) 1.5 (1.0-3.2); LYMPHOCYTES % 20.5 % (18.0-39.1); MEAN CORPUSCULAR HEMOGLOBIN 38.8 pg (28-32); MEAN CORPUSCULAR HGB CONC 35.3 g/dL (31-35); MEAN CORPUSCULAR VOLUME 109.7 fL (81-99); MONOCYTES % 13.5 % (4.4-11.3); NEUTROPHILS # (AUTO) 4.6 (2.1-6.9); NEUTROPHILS % 64.6 % (38.7-80.0); PLATELET COUNT 164 x10e3/uL (140-360); RED BLOOD COUNT 2.89 x10e6/uL (3.6-5.1); RED CELL DISTRIBUTION WIDTH 18.6 % (11.7-14.4)
[2019-02-10] MEDS ORDERED: CONSTULOSE10 GM/15 M PO (13:26)
[2019-02-10] MEDS ORDERED: XIFAXAN550 MG PO (13:26)
[2019-02-10] MEDS ORDERED: ZOLPIDEM TARTRATE 5 MG TAB PO PRN (14:00)
[2019-02-10] MEDS ORDERED: MORPHINE SULFATE 2 MG/ML SYR 1ML IV PRN (14:00)
[2019-02-10] MEDS ORDERED: DIPHENHYDRAMINE HCL INJ 50 MG/ML VIAL IV PRN (14:00)
[2019-02-10] MEDS ORDERED: PROMETHAZINE 12.5MG/ NACL 0.9% 12.5 MG/50 ML BAG IV PRN (14:00)
[2019-02-10] MEDS ORDERED: LACTULOSE SYRUP 20 GM/30 ML UDC PO PRN (14:00)
[2019-02-10] MEDS ORDERED: SODIUM CHLORIDE FLUSH 10 ML SYR INJ PRN (14:00)
[2019-02-10] MEDS ORDERED: PROMETHAZINE 12.5MG/ NACL 0.9% 50 ML IV PRN (14:30)
[2019-02-10] MEDS ORDERED: MORPHINE SULFATE INJ 4 MG/ML INJ 1ML IV PRN (14:30)
--- NOTE | 2019-02-10 14:38 | Diagnostic Imaging Report ---
EXAMINATION: CT of the abdomen and pelvis without contrast TECHNIQUE: Spiral CT images of the abdomen and pelvis were performed from the lung bases to the lesser trochanters without administration of IV contrast. Lack of IV contrast limits evaluation of visceral and vascular structures. Coronal and sagittal reformatted images were obtained. COMPARISON: CT abdomen/pelvis dated 02/04/2019. CLINICAL HISTORY:Abdominal pain. DISCUSSION: ABDOMEN/PELVIS: LOWER THORAX:Subsegmental atelectasis in the right middle lobe and bilateral lower lobes. Trace right pleural effusion. HEPATOBILIARY: Subcentimeter hypodense segment 4 lesion is too small to characterize, but likely represents a cyst. Cirrhotic morphology to the liver. No evidence of biliary ductal dilatation. Cholelithiasis without CT evidence of cholecystitis. SPLEEN: No splenomegaly. PANCREAS: No focal masses or ductal dilatation. ADRENALS: No adrenal nodules. KIDNEYS/URETERS: Lobulated contour of the right kidney may be congenital or postinflammatory. Left kidney is unremarkable. No hydronephrosis or calculi. PELVIC ORGANS/BLADDER: Urinary bladder is collapsed and poorly evaluated. Tubal ligation devices. PERITONEUM/RETROPERITONEUM: Increasing moderate to large volume ascites. LYMPH NODES: No pelvic sidewall, retroperitoneal, or mesenteric lymphadenopathy. Mildly enlarged portacaval lymph node is unchanged. VESSELS: Small perigastric and periesophageal varices. Recanalized umbilical vein. GI TRACT: Interval development of wall thickening within the jejunum, most pronounced in a single loop, incompletely evaluated in the absence of IV and oral contrast. The stomach is distended with enteric contents. There is scattered colonic diverticulosis without CT evidence of diverticulitis. Likely normal appendix visualized on series 3, image 105. No evidence of bowel obstruction. BONES AND SOFT TISSUE: Mild anasarca. No osseous destructive lesions. Degenerative changes of the spine. IMPRESSION: Thickened jejunum, most pronounced in a single loop, which could reflect infectious or inflammatory enteritis, although somewhat limited evaluation in the absence of contrast. Cirrhosis with findings of portal hypertension including moderate to large volume ascites and gastroesophageal varices. Signed by: Dr. Radha Atkinson MD on 02/10/2019 2:35 PM
--- NOTE | 2019-02-10 15:14 | NUR ---
patient arrived on unit via stretcher, alert and oriented. call bella within reach and bed in lowest position.
[2019-02-10 15:25] VITALS: BP 110/64
[2019-02-10 15:39] VITALS: BP 110/64
[2019-02-10 15:40] VITALS: BP 110/64
[2019-02-10] MEDS ORDERED: MELATONIN3 MG PO (15:50)
[2019-02-10] MEDS ORDERED: SODIUM CHLORIDE 0.9% 250ML 250 ML ONE (16:51)
[2019-02-10] MEDS: METRONIDAZOLE 500MG/NS 100ML 100 ML IV SCH (16:55)
[2019-02-10] MEDS ORDERED: TRAMADOL HCL 50 MG TAB PO PRN (18:30)
[2019-02-10] MEDS ORDERED: MELATONIN 3 MG TAB PO PRN (18:30)
[2019-02-10] MEDS: PANTOPRAZOLE SOD 40 MG TABEC PO SCH (18:43)
[2019-02-10] MEDS: FUROSEMIDE 20 MG TAB PO SCH (18:43)
[2019-02-10] MEDS: SPIRONOLACTONE 25 MG TAB PO SCH (18:43)
--- NOTE | 2019-02-10 18:55 | NUR ---
walking rounds made with third shift lieutenant nurse, patient aware of change and in no distress. call bella within reach and bed in lowest position
[2019-02-10 20:00] VITALS: BP 119/59
[2019-02-10 20:33] VITALS: BP 119/59
[2019-02-10] MEDS: LACTULOSE SYRUP 20 GM/30 ML UDC PO SCH (20:33)
[2019-02-11] VITALS (7 sets, daily range): BP systolic 115–140; BP diastolic 60–74
[2019-02-11] MEDS: METRONIDAZOLE 500MG/NS 100ML 100 ML IV SCH ×3 (01:00→18:44)
[2019-02-11] MEDS ORDERED: SPIRONOLACTONE25 MG PO ×2 (05:06→05:07)
[2019-02-11] MEDS ORDERED: ALDACTONE25 MG PO (05:21)
[2019-02-11] MEDS: CEFTRIAXONE SOD 1 GM/NS 50 ML 50 ML IV SCH (05:30)
[2019-02-11] MEDS: PANTOPRAZOLE SOD 40 MG TABEC PO SCH (05:37)
[2019-02-11] MEDS: FUROSEMIDE 20 MG TAB PO SCH ×2 (05:37→18:52)
[2019-02-11 05:50] LABS: BASOPHILS % 0.4 % (0.0-1.0); EOSINOPHILS # (AUTO) 0.1 (0.0-0.4); EOSINOPHILS % 0.5 % (0.0-6.0); HEMATOCRIT 28.7 % (34.2-44.1); LYMPHOCYTES # (AUTO) 2.3 (1.0-3.2); LYMPHOCYTES % 24.3 % (18.0-39.1); MEAN CORPUSCULAR HEMOGLOBIN 38.6 pg (28-32); MEAN CORPUSCULAR HGB CONC 34.8 g/dL (31-35); MEAN CORPUSCULAR VOLUME 110.8 fL (81-99); MONOCYTES # (AUTO) 1.6 (0.2-0.8); MONOCYTES % 16.9 % (4.4-11.3); NEUTROPHILS # (AUTO) 5.4 (2.1-6.9); NEUTROPHILS % 57.1 % (38.7-80.0); PLATELET COUNT 157 x10e3/uL (140-360); RED BLOOD COUNT 2.59 x10e6/uL (3.6-5.1); RED CELL DISTRIBUTION WIDTH 18.6 % (11.7-14.4)
[2019-02-11 06:13] LABS: INR 1.46; PROTHROMBIN TIME 18.3 seconds (11.9-14.5)
[2019-02-11 06:18] LABS: ANION GAP 13.8 mmol/L (8-16); CALCIUM 9.4 mg/dL (8.4-10.2); CREATININE, SERUM 1.81 mg/dL (0.57-1.11); MAGNESIUM 2.3 MG/DL (1.3-2.1); POTASSIUM 5.8 mmol/L (3.5-5.1)
--- NOTE | 2019-02-11 06:53 | NUR ---
CALLED AND NOTIFIED [employer] PODIATRY TEACHER REGARDING POTASSIUM LEVEL.N/O RECEIVED TO HOLD ALDACTONE DOSE THIS MORNING.ONCOMING NURSE NOTIFIED.
--- NOTE | 2019-02-11 07:12 | NUR ---
BEDSIDE SHIFT REPORT GIVEN TO ONCOMING NURSE,PT RESTING IN BED WITH NO S/S OF DISTRESS.
[2019-02-11] MEDS ORDERED: SOD POLYSTYRENE SULFONATE SUSP 15 GM/60 ML BTL PO ONE (07:30)
[2019-02-11] MEDS: SPIRONOLACTONE 25 MG TAB PO SCH ×2 (07:51→18:44)
[2019-02-11] MEDS: LACTULOSE SYRUP 20 GM/30 ML UDC PO SCH ×4 (08:29→22:03)
[2019-02-11] MEDS: MEGESTROL ACETATE 40 MG TAB PO SCH ×2 (08:29→18:44)
[2019-02-11] MEDS: RIFAXIMIN 550 MG TABLET PO SCH ×2 (08:29→18:44)
[2019-02-11 10:40] LABS: LYMPHOCYTES % (MANUAL) 21 % (19-48); MONOCYTES % (MANUAL) 13 % (3.4-9.0); NEUTROPHILS % (MANUAL) 66 % (40-74)
[2019-02-11 10:42] LABS: ANISOCYTOSIS MODERATE; PLATELET ESTIMATE ADEQUATE; PLATELET MORPHOLOGY COMMENT NORMAL; POIKILOCYTOSIS S; RBC MORPHOLOGY COMMENT ABNORMAL
--- NOTE | 2019-02-11 15:57 | Diagnostic Imaging Report ---
PROCEDURE: Ultrasound-guided therapeutic paracentesis Procedural Personnel Attending physician(s): Bev Roberson MD Pre-procedure diagnosis: Ascites Post-procedure diagnosis: Same Indication: Ascites with pain or pressure symptoms Additional clinical history: None Complications: No immediate complications. IMPRESSION: Ultrasound-guided paracentesis with drainage of 2075 mL of milky yellow fluid. Plan: Resume care by clinical team. PROCEDURE SUMMARY: - Limited abdominal ultrasound - Ultrasound-guided paracentesis - Additional procedure(s): None PROCEDURE DETAILS: Pre-procedure Consent: Informed consent for the procedure including risks, benefits and alternatives was obtained and time-out was performed prior to the procedure. Preparation: The site was prepared and draped using maximal sterile barrier technique including cutaneous antisepsis. Anesthesia/sedation Level of anesthesia/sedation: No sedation Initial abdominal ultrasound Initial abdominal ultrasound was performed. Findings: Moderate ascites. A safe window for paracentesis was identified. Paracentesis Local anesthesia was administered. The peritoneal cavity was accessed and fluid return confirmed position. Ascites was drained. The catheter was then removed, and a sterile bandage was applied. Paracentesis access technique: Real-time ultrasound guidance Catheter placed: 5F Yueh Post-drainage ultrasound: No visible ascites Additional Details Additional description of procedure: None Equipment details: None Specimens removed: Abdominal fluid Estimated blood loss (mL): Less than 10 Standardized report: [email or web address] Attestation Signer name: Bev Roberson MD I attest that I was present for the entire procedure. I reviewed the stored images and agree with the report as written. Signed by: Bev Roberson MD on 02/11/2019 3:54 PM
[2019-02-12] VITALS (9 sets, daily range): BP systolic 105–131; BP diastolic 54–68
[2019-02-12] MEDS: METRONIDAZOLE 500MG/NS 100ML 100 ML IV SCH ×3 (00:41→18:03)
[2019-02-12 03:55] LABS: BASOPHILS % 0.4 % (0.0-1.0); EOSINOPHILS # (AUTO) 0.1 (0.0-0.4); EOSINOPHILS % 1.7 % (0.0-6.0); HEMOGLOBIN 8.6 g/dL (12.0-16.0); LYMPHOCYTES # (AUTO) 2.2 (1.0-3.2); LYMPHOCYTES % 28.6 % (18.0-39.1); MEAN CORPUSCULAR HEMOGLOBIN 37.9 pg (28-32); MEAN CORPUSCULAR HGB CONC 34.4 g/dL (31-35); MEAN CORPUSCULAR VOLUME 110.1 fL (81-99); MONOCYTES # (AUTO) 1.2 (0.2-0.8); MONOCYTES % 15.6 % (4.4-11.3); NEUTROPHILS % 52.9 % (38.7-80.0); PLATELET COUNT 122 x10e3/uL (140-360); RED BLOOD COUNT 2.27 x10e6/uL (3.6-5.1)
[2019-02-12 04:19] LABS: ALBUMIN 1.9 g/dL (3.5-5.0); BILIRUBIN,DIRECT 1.5 mg/dL (0.0-0.5); CALCIUM 8.5 mg/dL (8.4-10.2); CREATININE, SERUM 1.78 mg/dL (0.57-1.11)
[2019-02-12] MEDS: CEFTRIAXONE SOD 1 GM/NS 50 ML 50 ML IV SCH (05:21)
[2019-02-12 05:36] LABS: INR 1.59; PROTHROMBIN TIME 19.6 seconds (11.9-14.5)
[2019-02-12 05:37] LABS: PARTIAL THROMBOPLASTIN TIME 37.1 seconds (23.8-35.5)
[2019-02-12] MEDS: FUROSEMIDE 20 MG TAB PO SCH ×2 (06:11→18:04)
[2019-02-12] MEDS: PANTOPRAZOLE SOD 40 MG TABEC PO SCH (06:11)
[2019-02-12] MEDS: METOCLOPRAMIDE HCL 10 MG/2ML VIAL IV SCH ×4 (07:30→22:15)
[2019-02-12] MEDS: LACTULOSE SYRUP 20 GM/30 ML UDC PO SCH ×4 (09:00→22:15)
[2019-02-12] MEDS: SPIRONOLACTONE 25 MG TAB PO SCH ×2 (11:09→18:03)
[2019-02-12] MEDS: MEGESTROL ACETATE 40 MG TAB PO SCH ×2 (11:09→18:04)
[2019-02-12] MEDS: RIFAXIMIN 550 MG TABLET PO SCH ×2 (11:09→18:04)
[2019-02-13] VITALS (10 sets, daily range): BP systolic 91–125; BP diastolic 51–65
[2019-02-13] MEDS: METRONIDAZOLE 500MG/NS 100ML 100 ML IV SCH ×3 (01:13→17:53)
[2019-02-13] MEDS ORDERED: PHYTONADIONE 10 MG/ML AMP SQ STA (01:52)
[2019-02-13] MEDS: CEFTRIAXONE SOD 1 GM/NS 50 ML 50 ML IV SCH (04:43)
[2019-02-13] MEDS: PANTOPRAZOLE SOD 40 MG TABEC PO SCH (05:20)
[2019-02-13] MEDS: FUROSEMIDE 20 MG TAB PO SCH ×2 (05:20→17:53)
[2019-02-13 05:36] LABS: BASOPHILS % 0.5 % (0.0-1.0); EOSINOPHILS # (AUTO) 0.1 (0.0-0.4); HEMATOCRIT 25.3 % (34.2-44.1); HEMOGLOBIN 8.9 g/dL (12.0-16.0); LYMPHOCYTES # (AUTO) 2.3 (1.0-3.2); LYMPHOCYTES % 37.8 % (18.0-39.1); MEAN CORPUSCULAR HEMOGLOBIN 37.9 pg (28-32); MEAN CORPUSCULAR HGB CONC 35.2 g/dL (31-35); MEAN CORPUSCULAR VOLUME 107.7 fL (81-99); MONOCYTES % 16.7 % (4.4-11.3); NEUTROPHILS # (AUTO) 2.6 (2.1-6.9); NEUTROPHILS % 42.2 % (38.7-80.0); PLATELET COUNT 129 x10e3/uL (140-360); RED BLOOD COUNT 2.35 x10e6/uL (3.6-5.1); RED CELL DISTRIBUTION WIDTH 17.8 % (11.7-14.4)
[2019-02-13 05:42] LABS: INR 1.71; PROTHROMBIN TIME 20.7 seconds (11.9-14.5)
[2019-02-13] MEDS ORDERED: PHYTONADIONE 10 MG/ML AMP SQ ONE (06:00)
[2019-02-13] MEDS ORDERED: PHYTONADIONE 10 MG/ML AMP SQ NR (06:15)
[2019-02-13 06:18] LABS: ANION GAP 12.2 mmol/L (8-16); CALCIUM 8.4 mg/dL (8.4-10.2); CREATININE, SERUM 1.28 mg/dL (0.57-1.11); POTASSIUM 3.2 mmol/L (3.5-5.1)
[2019-02-13 06:19] LABS: FERRITIN 328.74 ng/mL (4.63-204.00)
[2019-02-13 06:24] LABS: FOLATE 17.7 ng/mL (7.0-15.4)
--- NOTE | 2019-02-13 07:00 | NUR ---
Walking rounds done. Patient resting in bed in NAD. She was instructed to call for assistance as needed and verbalized understanding. call bella within reach and bed in lowest position.
--- NOTE | 2019-02-13 07:04 | NUR ---
called and left a message to dr Bishop, for consult. awaiting for call back.
[2019-02-13] MEDS: METOCLOPRAMIDE HCL 10 MG/2ML VIAL IV SCH ×4 (08:08→20:23)
[2019-02-13] MEDS: RIFAXIMIN 550 MG TABLET PO SCH ×2 (08:09→17:53)
[2019-02-13] MEDS: MEGESTROL ACETATE 40 MG TAB PO SCH ×2 (08:09→17:53)
[2019-02-13] MEDS: SPIRONOLACTONE 25 MG TAB PO SCH ×2 (08:09→17:53)
[2019-02-13] MEDS ORDERED: RIFAXIMIN 550 MG TABLET PO SCH (09:00)
--- NOTE | 2019-02-13 09:45 | Diagnostic Imaging Report ---
EXAM: US ABDOMEN LIMITED DATE: 02/13/2019 12:00 AM INDICATION: Ascites COMPARISON: Abdominal ultrasound of 01/07/2018 TECHNIQUE: Transverse and longitudinal mitchell scale and color doppler sonographic images of the upper abdomen were obtained. FINDINGS: There is moderate volume ascites throughout the abdomen. Findings are similar compared to the sonographic images obtained during the paracentesis of 02/11/2019. IMPRESSION: Moderate ascites. Signed by: Bev Roberson MD on 02/13/2019 9:42 AM
[2019-02-13] MEDS ORDERED: POTASSIUM CHLORIDE 10MEQ EA PO NR (10:30)
[2019-02-13] MEDS ORDERED: ALBUMIN 25% 12.5GM 0.25 GM/ML BTL IV PRN (13:30)
--- NOTE | 2019-02-13 14:37 | NUR ---
Nutrition Screen Note RD Recommendation for Physician: -Rec low sodium diet as medically appropriate -Pt requested Ensure with her meals. Plan of Care: RD following, monitoring for tolerance and adequacy, diet education Nutrition reason for involvement: Nutrition risk trigger MST, RN consult diet education Primary Diagnose(s): abdominal pain, ascites PMH: diverticulitis, cirrhosis, HTN, kidney stones Ht: 59in Wt: 128lb BMI: 25.9kg/m2 IBW: 98lb +/- 10% RD Assessment: (02/13) Chart reviewed. Labs and meds reviewed. 73yo F, who was admitted for recurrent ascites. Pt is well known to me from her previous admissions. Pt received diet education on 12/12/2018. Pt was not following the diet instruction given. Last reported alcohol intake was before October this year. Pt reported poor appetite. PCT recorded 75-100% meal intake. Abd US showed moderate ascites. Pt had paracentesis on 02/11 with 2075mL fluids drawn. Another paracentesis is scheduled for today. Revisited the diet guidelines with patient. All questions have been answered. Pt also requested for Ensure with meal. Current Diet: GI soft/ 2g sodium diet Malnutrition Evaluation (02/13/2019) The patient does not meet criteria for a specified degree of malnutrition at this time. Will re-evaluate at follow-up as appropriate. Diet Education Needs Assessment: Diet education indicated. Pt received diet education on 12/12/2018 for cirrhosis. Pt stated I just forget about it when I got home. Learner(s): pt Time spent: 20minutes Barriers: Non-compliant with diet Cultural/Language Modifications: No cultural/language modifications noted. Pt speaks Albanian. Readiness: Acceptance Method: Handouts, explanation Topics: Cirrhosis Nutrition Therapy Understanding/Compliance: Expect fair understanding/compliance from pt. Will benefit from reinforcement. All questions have been answered. Nutrition Care Level: low Signed: Savannah Recinos, MS, RD, LD
--- NOTE | 2019-02-13 15:36 | Consultation ---
DATE OF CONSULTATION: 02/13/2019 Nephrology Consultation Note REASON FOR CONSULTATION: Acute kidney injury. HISTORY OF PRESENT ILLNESS: This is a 73-year-old female with multiple comorbidities. Of note, has alcoholic liver cirrhosis in which she quit about 5 months ago, who has history of hypertension, hyperlipidemia, acid reflux, stage 3 CKD, and alcoholic liver cirrhosis, presents with ascites that requiring multiple paracenteses. Nephrology was consulted due to underlying acute kidney injury from fluid removal. The patient has a known history of CKD stage 3. She is very noncompliant with her medical care. Of note, gets weekly paracenteses as well. I spoke . The patient is very noncompliant with her medical needs. They are in the process of going to the liver specialist in [facility] for further management and care. The patient's creatinine on admission was 1.23, went up to 1.8, 1.78 and now back to baseline of 1.2 rate. Looking back in her past back in November, her creatinine was 0.8 estimated and then a creatinine started to increase towards the end of month of November to about 1, but in December, the patient came in with creatinine of 1.05 and then in February 03, 2019, 1.2, and now she comes and her creatinine is 1.2, seems to be new baseline. REVIEW OF SYSTEMS: Pertinent positives: . Pertinent negatives: Denies any chest pain, palpitation, nausea, vomiting, diarrhea, dysuria, hematuria, frequency, urgency, lightheadedness, dizziness, cough, congestion, fever, or any other complaints. The rest of the 14-point review of systems have been reviewed with the patient and are negative. ALLERGIES: NO KNOWN DRUG ALLERGIES. HOME MEDICATIONS: Potassium chloride 20 mEq p.o. b.i.d., Aldactone 50 mg p.o. b.i.d., lactulose, furosemide 20 mg p.o. b.i.d., Megace 80 mg p.o. b.i.d., melatonin, omeprazole, Rifaximin 550 mg p.o. b.i.d., and tramadol for pain. PAST MEDICAL HISTORY: Alcoholic liver cirrhosis, medical noncompliance, and alcohol abuse. PAST SURGICAL HISTORY: Reports none. FAMILY HISTORY: Hypertension and diabetes. SOCIAL HISTORY: No drugs. Occasional smoking. She is a chronic alcoholic, quit 5 months ago. PHYSICAL EXAMINATION: VITAL SIGNS: Temperature is 97.8, pulse 96, respiratory rate is 18, blood pressure is 101/54, and pulse ox 98% on room air. GENERAL: Not in acute distress. Alert and oriented x3. Cooperative on examination. HEENT: Head is normocephalic and atraumatic. Eyes, pupils are equal, round, and reactive to light bilaterally. Extraocular movements are intact bilaterally. Throat, no evidence of erythema or exudates in the posterior pharynx. Has poor dentition. NECK: Supple. Good range of motion. PULMONARY: Clear to auscultation bilaterally. No wheezing, no rales, no rhonchi, no crackles appreciated. CARDIOVASCULAR: Positive S1 and S2. No murmurs, rubs, or gallops appreciated. ABDOMEN: Abdomen is thin, nontender to palpation. Bowel sounds present. MUSCULOSKELETAL: Strength is 5/5 throughout. No evidence of any muscle deficits on examination. No weakness appreciated. NEUROLOGICAL: Cranial nerves II through XII grossly intact. No evidence of any neurological deficits on exam. SKIN: Intact. Warm to touch. Good cap refill. PSYCHIATRIC: Normal affect and mood. EXTREMITIES: No edema. Good range of motion throughout. LABORATORY FINDINGS: Show white count 6, hemoglobin 8.9, hematocrit is 25, and platelets of 129. Coagulation; PT 20 and INR 1.7. Chemistry; sodium 138, potassium 3.3, chloride 111, bicarb 18, anion gap of 12, BUN , creatinine 1.2 with calcium . MICROBIOLOGY: Urine culture consistent with Klebsiella pneumoniae. IMAGING STUDIES: CT abdomen and pelvis shows could be enteritis. There is some cirrhosis with portal hypertension with [id number] volume ascites, gastroesophageal varices. Abdominal ultrasound, moderate ascites. IMPRESSION: 1. Acute kidney injury on chronic kidney disease stage 3, likely hepatorenal syndrome type 2. 2. Hepatorenal syndrome type 2. 3. Electrolyte abnormalities with hypokalemia. 4. Alcoholic liver cirrhosis. 5. Chronic hypotension secondary to hepatorenal syndrome. PLAN: At this time, her creatinine was actually back to her normal baseline at 1.2. No further workup is needed from that standpoint, but we will go ahead and get a renal ultrasound to see chronicity and size of the kidneys. This is all likely secondary to hepatorenal syndrome type 2. I had a long discussion with the family at bedside about that his mother is likely to continue get worsening kidney function over time, as she continues to get more paracenteses. Of note, he reports to me that she has had paracentesis every week now since the last 5 months. This is quite concerning. More frequent paracenteses will have decreased effective blood volume to the kidney which were likely increase in the creatinine. At this time, we will maintain her systolic blood pressure roughly greater than 100 to avoid worsening renal function. Urine output is good for now. Replace electrolytes. We will order albumin for paracentesis scheduled for tomorrow enterprise sales person to avoid hypotension. Once again, I explained the overall findings at the current moment and possibly in the future to have worsening renal function if her limited situation does not get resolve. Otherwise, the family verbalized understanding and agrees with plan of care. MD JIMMY Lovelace/TERESA /[id number]
--- NOTE | 2019-02-13 19:02 | NUR ---
Report given and rounds done.
[2019-02-14] MEDS: METRONIDAZOLE 500MG/NS 100ML 100 ML IV SCH ×3 (00:25→17:25)
[2019-02-14 03:07] LABS: BASOPHILS % 0.3 % (0.0-1.0); EOSINOPHILS # (AUTO) 0.2 (0.0-0.4); EOSINOPHILS % 2.6 % (0.0-6.0); HEMOGLOBIN 7.8 g/dL (12.0-16.0); LYMPHOCYTES # (AUTO) 2.5 (1.0-3.2); LYMPHOCYTES % 40.3 % (18.0-39.1); MEAN CORPUSCULAR HEMOGLOBIN 38.2 pg (28-32); MEAN CORPUSCULAR HGB CONC 35.8 g/dL (31-35); MEAN CORPUSCULAR VOLUME 106.9 fL (81-99); MONOCYTES # (AUTO) 1.1 (0.2-0.8); MONOCYTES % 17.7 % (4.4-11.3); NEUTROPHILS # (AUTO) 2.3 (2.1-6.9); NEUTROPHILS % 38.3 % (38.7-80.0); PLATELET COUNT 118 x10e3/uL (140-360); RED BLOOD COUNT 2.04 x10e6/uL (3.6-5.1); RED CELL DISTRIBUTION WIDTH 18.3 % (11.7-14.4)
[2019-02-14 03:10] LABS: INR 1.72; PARTIAL THROMBOPLASTIN TIME 33.8 seconds (23.8-35.5); PROTHROMBIN TIME 20.8 seconds (11.9-14.5)
[2019-02-14 03:15] LABS: HEMATOCRIT 21.8 % (34.2-44.1)
[2019-02-14 03:16] LABS: BLOOD UREA NITROGEN 19 mg/dL (7-26); BUN/CREATININE RATIO 22 (6-25); CARBON DIOXIDE 17 mmol/L (22-29); CHLORIDE 112 mmol/L (98-107); CREATININE, SERUM 0.86 mg/dL (0.57-1.11); EST GLOMERULAR FILTRATION RATE > 60 ML/MIN (60-); GLUCOSE 73 mg/dL (74-118); MAGNESIUM 1.8 MG/DL (1.3-2.1); SODIUM 136 mmol/L (136-145)
[2019-02-14 05:05] VITALS: BP 95/52
[2019-02-14] MEDS: PANTOPRAZOLE SOD 40 MG TABEC PO SCH (05:07)
[2019-02-14] MEDS: CEFTRIAXONE SOD 1 GM/NS 50 ML 50 ML IV SCH (05:07)
[2019-02-14] MEDS: FUROSEMIDE 20 MG TAB PO SCH ×2 (05:07→17:25)
[2019-02-14] MEDS ORDERED: POTASSIUM CHLORIDE 20 MEQ TAB CR PO STA (05:46)
[2019-02-14] MEDS ORDERED: CEFDINIR300 MG PO (05:56)
--- NOTE | 2019-02-14 07:00 | NUR ---
RECEIVED BEDSIDE SHIFT REPORT FROM NIGHT RN. PT DENIES NEEDS AT THIS TIME.
[2019-02-14 08:00] VITALS: BP 101/54
[2019-02-14] MEDS: SPIRONOLACTONE 25 MG TAB PO SCH ×2 (08:08→17:25)
[2019-02-14] MEDS: METOCLOPRAMIDE HCL 10 MG/2ML VIAL IV SCH ×4 (08:08→20:02)
[2019-02-14] MEDS: MEGESTROL ACETATE 40 MG TAB PO SCH ×2 (08:09→17:25)
[2019-02-14] MEDS: RIFAXIMIN 550 MG TABLET PO SCH ×2 (08:09→17:25)
--- NOTE | 2019-02-14 11:00 | NUR ---
LILA FROM DR. FERRARO STANDPOINT TO DISCHARGE HOME.
[2019-02-14 12:00] VITALS: BP 104/59
--- NOTE | 2019-02-14 12:00 | NUR ---
PT OFF THE FLOOR TO ULTRASOUND .
--- NOTE | 2019-02-14 13:27 | Progress Note ---
DATE: 02/14/2019 Nephrology Progress Note SUBJECTIVE: The patient is doing well today with no complaints. She is scheduled for paracentesis later today by IR. PHYSICAL EXAMINATION: VITAL SIGNS: Temperature is 96.6, pulse 91, respiratory rate 19, blood pressure is 101/54, pulse ox 96% on room air. GENERAL: Not in acute distress. Alert and oriented x3. Cooperative on examination. HEENT: Head is normocephalic and atraumatic. Eyes, pupils are equal, round, and reactive to light bilaterally. Extraocular movements are intact bilaterally. Throat, no evidence of erythema or exudates in the posterior pharynx. Has poor dentition. NECK: Supple. Good range of motion. PULMONARY: Clear to auscultation bilaterally. No wheezing, no rales, no rhonchi, no crackles appreciated. CARDIOVASCULAR: Positive S1 and S2. No murmurs, rubs, or gallops appreciated. ABDOMEN: Soft, nondistended, and nontender to palpation. Bowel sounds present. MUSCULOSKELETAL: Strength is 5/5 throughout. No evidence of any muscle deficits on examination. No weakness appreciated. NEUROLOGICAL: Cranial nerves II through XII grossly intact. No evidence of any neurological deficits on exam. SKIN: Intact. Warm to touch. Good cap refill. PSYCHIATRIC: Normal affect and mood. EXTREMITIES: No edema. Good range of motion throughout. LABORATORY DATA: Lab findings show white count of 6.1, hemoglobin 7.8, hematocrit is 22, platelets of 180. Coagulation PT 20, INR 1.72, PTT 33. Chemistry; sodium 133, potassium 3, chloride 112, bicarb 17, anion gap of 10, BUN 19, creatinine is 0.86, magnesium is 1.8. MICROBIOLOGY: Urine culture Klebsiella pneumoniae. IMPRESSION: 1. Acute kidney injury on chronic kidney disease stage 3, likely with hepatorenal syndrome type 2, now with improved creatinine. 2. Hepatorenal syndrome type 2. 3. Electrolyte abnormalities with hypokalemia. 4. replace. 5. Alcohol liver cirrhosis. 6. Chronic hypertension, likely secondary to hepatorenal syndrome due to urinary tract infection. PLAN: Creatinine is back to baseline of note actually much better than baseline. We will continue with same plan of care and monitor. albumin has been ordered for paracentesis to avoid worsening renal function. Replace potassium. Continue follow with the primary care. I discussed plan of care with the patient with the nurse present. MD JIMMY Lovelace/TERESA /[id number]
--- NOTE | 2019-02-14 13:42 | NUR ---
PT BACK TO THE FLOOR FROM ULTRASOUND.
[2019-02-14 14:01] LABS: BODY FLUID APPEARANCE TURBID; BODY FLUID COLOR STRAW; BODY FLUID TYPE PERITONEAL
--- NOTE | 2019-02-14 14:19 | Diagnostic Imaging Report ---
PROCEDURE: Ultrasound-guided diagnostic and therapeutic paracentesis Procedural Personnel Attending physician(s): Bev Roberson MD Pre-procedure diagnosis: Cirrhosis, ascites Post-procedure diagnosis: Same Indication: Ascites with pain or pressure symptoms Additional clinical history: None Complications: No immediate complications. IMPRESSION: Ultrasound-guided paracentesis with drainage of 3600 mL of serous fluid. Plan: Resume care by clinical team. PROCEDURE SUMMARY: - Limited abdominal ultrasound - Ultrasound-guided paracentesis - Additional procedure(s): None PROCEDURE DETAILS: Pre-procedure Consent: Informed consent for the procedure including risks, benefits and alternatives was obtained and time-out was performed prior to the procedure. Preparation: The site was prepared and draped using maximal sterile barrier technique including cutaneous antisepsis. Anesthesia/sedation Level of anesthesia/sedation: No sedation Anesthesia/sedation administered by: Not applicable Initial abdominal ultrasound Initial abdominal ultrasound was performed. Findings: Moderate ascites. A safe window for paracentesis was identified. Paracentesis Local anesthesia was administered. The peritoneal cavity was accessed and fluid return confirmed position. Ascites was drained. The catheter was then removed, and a sterile bandage was applied. Paracentesis access technique: Real-time ultrasound guidance Catheter placed: 5F Yueh Post-drainage ultrasound: No visible ascites Additional Details Additional description of procedure: None Equipment details: None Specimens removed: Abdominal fluid Estimated blood loss (mL): Less than 10 Standardized report: [email or web address] Attestation Signer name: Bev Roberson MD I attest that I was present for the entire procedure. I reviewed the stored images and agree with the report as written. Signed by: Bev Roberson MD on 02/14/2019 2:15 PM
--- NOTE | 2019-02-14 15:08 | Diagnostic Imaging Report ---
EXAM: Renal Ultrasound INDICATION: ^PRASHANT ^[id number] ^[id number] COMPARISON: None TECHNIQUE: Transverse and longitudinal images of the kidneys and bladder were obtained. FINDINGS: Right Kidney: Length: 9.2 cm Appearance: Normal echogenicity. Collecting system: No hydronephrosis Stones: None Cyst/Mass: None Left Kidney: Length: 11.2 cm Appearance: Normal echogenicity. Collecting system: No hydronephrosis Stones: None Cyst/Mass: None Bladder: No bladder mass or calculi. Estimated prevoid volume 175cc. Bilateral ureteral jets seen. Small volume right upper quadrant ascites. IMPRESSION: No renal calculi or hydronephrosis. Abdominal ascites. Signed by: Bev Roberson MD on 02/14/2019 3:04 PM
[2019-02-14 16:00] VITALS: BP 106/57
[2019-02-14 16:39] LABS: RBC,BODY FLUID 4604 cells/uL; WBC,BODY FLUID 767 cells/uL
--- NOTE | 2019-02-14 17:57 | NUR ---
SPOKE TO DR. GARIBAY. PT WOULD BE BETTER STAYING THE NIGHT SINCE PARACENTISIS AND MOST LIKELY GENA WILL DISCHARGE IN THE AM.
[2019-02-14 18:31] LABS: LYMPHOCYTES,BODY FLUID 47 %; MONO/MACROPHG,BODY FLUID 12 %; NEUTROPHILS,BODY FLUID 7 %; OTHER CELLS,BODY FLUID 34 %
[2019-02-14 18:53] VITALS: BP 106/57
--- NOTE | 2019-02-14 20:44 | NUR ---
Spoke with patient's son this evening. Son states he wants patient discharged in time to make an 1130 am Doctor appointment. Son also states patient has an another appointment scheduled for this coming Monday with a doctor in the medical center for a permanent port for home draining of ascites fluid. Patient is moving to room 299. Report called to MARY ANN Flores. Son was made aware of move.
--- NOTE | 2019-02-14 21:31 | NUR ---
PATIENT RECEIVED FROM OBSERVATION UNIT. SHE'S ALERT AND ORIENTED X4, NO RESPIRATORY DISTRESS OBSERVED AND SHE DENIES PAIN. ABDOMEN LARGE, FIRM AND SOFT, SHE DENIES ABDOMINAL PAIN. BED ALARM ON, CALL LIGHT WITHIN EASY REACH, SHE'S INSTRUCTED TO CALL FOR ASSISTANCE NEEDED.
[2019-02-14 22:45] VITALS: BP 106/58
--- NOTE | 2019-02-14 23:36 | NUR ---
ROUNDS MADE, PATIENT RESTING QUIETLY IN BED. SHE DENIES ANY RESPIRATORY DISTRESS AND ABDOMINAL PAIN. BED ALARM ON, CALL LIGHT WITHIN EASY REACH AND SHE'S INSTRUCTED TO CALL FOR ASSISTANCE NEEDED.
[2019-02-15] VITALS: BP 91/50
[2019-02-15] MEDS: METRONIDAZOLE 500MG/NS 100ML 100 ML IV SCH (01:15)
--- NOTE | 2019-02-15 01:26 | NUR ---
BLOOD PRESSURE REASSESSED WITH READING OF 111/59, HEART RATE 87. PATIENT CONDITION STABLE WITHOUT ACUTE DISTRESS, SHE DENIES ABDOMINAL PAIN OR ANY RESPIRATORY DISTRESS. ASSISTED WITH ADLS, CALL LIGHT WITHIN EASY REACH.
[2019-02-15 01:35] VITALS: BP 111/59
[2019-02-15 04:00] VITALS: BP 103/56
[2019-02-15] MEDS: CEFTRIAXONE SOD 1 GM/NS 50 ML 50 ML IV SCH (05:11)
[2019-02-15] MEDS: PANTOPRAZOLE SOD 40 MG TABEC PO SCH (05:11)
[2019-02-15] MEDS: FUROSEMIDE 20 MG TAB PO SCH (05:11)
[2019-02-15] MEDS ORDERED: POTASSIUM CHLORIDE 20 MEQ TAB CR PO STA (05:35)
[2019-02-15] MEDS ORDERED: POTASSIUM CHLO20 ME1 PO (05:38)
--- NOTE | 2019-02-15 05:40 | NUR ---
PATIENT CONDITION REMAINS STABLE WITHOUT RESPIRATORY DISTRESS, SHE HAS ORDER FOR DISCHARGE TO HOME THIS MORNING AFTER BREAKFAST.
[2019-02-15 06:48] LABS: ALANINE AMINOTRANSFERASE 18 IU/L (0-55); ALBUMIN 1.9 g/dL (3.5-5.0); ALBUMIN/GLOBULIN RATIO 0.4 (0.8-2.0); ALKALINE PHOSPHATASE 136 IU/L (40-150); ANION GAP 10.5 mmol/L (8-16); BLOOD UREA NITROGEN 17 mg/dL (7-26); BUN/CREATININE RATIO 19 (6-25); CARBON DIOXIDE 17 mmol/L (22-29); CHLORIDE 110 mmol/L (98-107); EST GLOMERULAR FILTRATION RATE > 60 ML/MIN (60-); GLUCOSE 74 mg/dL (74-118); POTASSIUM 3.5 mmol/L (3.5-5.1); SODIUM 134 mmol/L (136-145)
[2019-02-15 08:00] VITALS: BP 113/65
[2019-02-15 08:07] VITALS: BP 113/65
[2019-02-15] MEDS: MEGESTROL ACETATE 40 MG TAB PO SCH (08:52)
[2019-02-15] MEDS: SPIRONOLACTONE 25 MG TAB PO SCH (08:52)
[2019-02-15] MEDS: METOCLOPRAMIDE HCL 10 MG/2ML VIAL IV SCH (08:52)
[2019-02-15] MEDS: RIFAXIMIN 550 MG TABLET PO SCH (08:52)
--- NOTE | 2019-02-15 10:25 | NUR ---
Pt discharged at this time. Pt discharged with all personal belongings. Pt verbalized understanding of all discharge instructions. Denies any pain at this time.
--- NOTE | 2019-02-15 17:15 | NUR ---
Pt received in bed with eyes open. Pt axo4 and able to verbalize needs. Denies any pain at this time. Pt is to be discharged this morning after breakfast.
--- NOTE | 2019-02-17 00:04 | Discharge Summary ---
ADMISSION DIAGNOSES: Alcoholic cirrhosis with tense ascites, chronic kidney disease 3, coagulopathy due to cirrhosis. DISCHARGE DIAGNOSES: Alcoholic cirrhosis with tense ascites, chronic kidney disease 3, coagulopathy due to cirrhosis plus anemia plus Klebsiella pneumoniae, urinary tract infection present on admission. HISTORY: The patient has a history of hypertension, hyperlipidemia, GERD, CKD 3, and alcoholic cirrhosis. SURGICAL HISTORY: Bilateral tubal ligation, breast biopsy, kidney stones. FAMILY HISTORY: The patient has a history of alcoholism. She quit about 3 months ago. HOSPITAL COURSE: A 73-year-old female, who was discharged home a few days ago, presents with tense ascites and abdominal pain. On admission, IR was consulted, who did ultrasound-guided paracentesis with 2075 mL of milky yellow fluid drained from her abdomen. The patient started on Rocephin for urine infection. The patient had a repeat ultrasound of the abdomen done on 02/13, which showed moderate ascites, so she had an additional paracentesis prior to discharge with 3600 mL of fluid pulled out. To try to put readmission, the patient's diuretics were doubled. The patient was also instructed to follow up more frequently for paracenteses. Per patient and her son, they are looking at her getting some type of shunt placed at [facility], so that she does not have to go as frequently. The patient was advised to keep a low-sodium diet and fluid restriction. The patient understands discharge instructions and agrees to plan. Vital signs stable. The patient is afebrile. She will discharge home with Omnicef for 5 days for the urine infection, K-Dur, and increased Aldactone. Dictated by Nessa Bucio NP Rashard Riley MD ALEJANDRA/MODL /[id number]
== END 2019-02-15 10:25 | disposition home or self-care (01) | DRG 432 ==
LOC: ER 12:17 → ERHOLD 14:14 → IMCU 15:47 → OBSVTOIN 02-12 14:06 → MED/SURG3 02-14 21:17
PROVIDERS: ADMIT Internal Medicine; ATTEND Internal Medicine
PROC: 0W9G3ZZ Drainage of Peritoneal Cavity, Percutaneous Approach (ICD-10-PCS; 2019-02-11)
PROC: 0W9G3ZZ Drainage of Peritoneal Cavity, Percutaneous Approach (ICD-10-PCS; principal; 2019-02-14)
DX: K70.31 Alcoholic cirrhosis of liver with ascites (principal); K76.7 Hepatorenal syndrome; N39.0 Urinary tract infection, site not specified; D68.4 Acquired coagulation factor deficiency; N17.9 Acute kidney failure, unspecified; F10.20 Alcohol dependence, uncomplicated; I12.9 Hypertensive chronic kidney disease with stage 1 through stage 4 chronic kidney disease, or unspecified chronic kidney disease; N18.3 Chronic kidney disease, stage 3 (moderate); K21.9 Gastro-esophageal reflux disease without esophagitis; B96.1 Klebsiella pneumoniae [K. pneumoniae] as the cause of diseases classified elsewhere; E87.5 Hyperkalemia; E78.5 Hyperlipidemia, unspecified; E87.6 Hypokalemia
CPT/HCPCS: 36415; 49083; 74176; 74470; 76705; 76770; 80048; 80053; 80076; 81001; 82150; 82607; 82728; 82746; 83540; 83690; 83735; 83880; 84466; 85025; 85610; 85730; 87070; 87086; 87186; 87205; 89051; 93005; 96360; 96367; 99284; C1729; G0378; J0696; J2270; J2405; J2550; J2765; J3430; J7040; J7050

== ENCOUNTER → 2019-02-19 | Outpatient (CLI) | payer MEDICARE ==
[~2019-02-19] MED LIST changes: +BACTRIM DS TAB1 EACH PO; +CEFDINIR300 MG PO; +CENTRUM SILVER1 EAC4 PO; +CONSTULOSE10 GM/15 M PO; +MELATONIN3 MG PO; +MIDODRINE HCL5 MG PO; +POTASSIUM CHLO20 ME1 PO; +XIFAXAN550 MG PO; +ZOFRAN4 MG PO
--- NOTE | 2019-02-19 12:59 | Diagnostic Imaging Report ---
PROCEDURE: Ultrasound-guided diagnostic and therapeutic paracentesis Procedural Personnel Attending physician(s): Bev Roberson MD Pre-procedure diagnosis: Cirrhosis, ascites Post-procedure diagnosis: Same Indication: Ascites with pain or pressure symptoms Additional clinical history: None Complications: No immediate complications. IMPRESSION: Ultrasound-guided paracentesis with drainage of 1500 mL of serous fluid. Plan: Resume care by clinical team. PROCEDURE SUMMARY: - Limited abdominal ultrasound - Ultrasound-guided paracentesis - Additional procedure(s): None PROCEDURE DETAILS: Pre-procedure Consent: Informed consent for the procedure including risks, benefits and alternatives was obtained and time-out was performed prior to the procedure. Preparation: The site was prepared and draped using maximal sterile barrier technique including cutaneous antisepsis. Anesthesia/sedation Level of anesthesia/sedation: No sedation Anesthesia/sedation administered by: Not applicable Initial abdominal ultrasound Initial abdominal ultrasound was performed. Findings: Moderate ascites. A safe window for paracentesis was identified. Paracentesis Local anesthesia was administered. The peritoneal cavity was accessed and fluid return confirmed position. Ascites was drained. The catheter was then removed, and a sterile bandage was applied. Paracentesis access technique: Real-time ultrasound guidance Catheter placed: 5F Yueh Post-drainage ultrasound: No visible ascites Additional Details Additional description of procedure: None Equipment details: None Specimens removed: Abdominal fluid Estimated blood loss (mL): Less than 10 Standardized report: [email or web address] Attestation Signer name: Bev Roberson MD I attest that I was present for the entire procedure. I reviewed the stored images and agree with the report as written. Signed by: Bev Roberson MD on 02/19/2019 12:56 PM
[2019-02-19 14:34] LABS: RBC,BODY FLUID 406 cells/uL; WBC,BODY FLUID 51 cells/uL
[2019-02-19 14:53] LABS: BODY FLUID TYPE PERITONEAL; LYMPHOCYTES,BODY FLUID 41 %; MONO/MACROPHG,BODY FLUID 7 %; NEUTROPHILS,BODY FLUID 30 %; OTHER CELLS,BODY FLUID 22 %
[2019-02-19 14:54] LABS: BODY FLUID APPEARANCE TURBID
== END ==
LOC: US 10:33
PROVIDERS: ATTEND Internal Medicine Gastroenterology
DX: R18.8 Other ascites (principal); K74.60 Unspecified cirrhosis of liver
CPT/HCPCS: 36415; 49083; 87070; 87116; 87205; 87206; 89051; C1729

== ENCOUNTER → 2019-03-06 | Outpatient (CLI) | payer MEDICARE ==
--- NOTE | 2019-03-06 15:04 | Diagnostic Imaging Report ---
PROCEDURE: Ultrasound-guided diagnostic and therapeutic paracentesis Procedural Personnel Attending physician(s): Bev Roberson MD Pre-procedure diagnosis: Cirrhosis, ascites Post-procedure diagnosis: Same Indication: Ascites with pain or pressure symptoms Additional clinical history: None Complications: No immediate complications. IMPRESSION: Ultrasound-guided paracentesis with drainage of 2525 mL of serous fluid. Plan: Resume care by clinical team. PROCEDURE SUMMARY: - Limited abdominal ultrasound - Ultrasound-guided paracentesis - Additional procedure(s): None PROCEDURE DETAILS: Pre-procedure Consent: Informed consent for the procedure including risks, benefits and alternatives was obtained and time-out was performed prior to the procedure. Preparation: The site was prepared and draped using maximal sterile barrier technique including cutaneous antisepsis. Anesthesia/sedation Level of anesthesia/sedation: No sedation Anesthesia/sedation administered by: Not applicable Initial abdominal ultrasound Initial abdominal ultrasound was performed. Findings: Moderate ascites. A safe window for paracentesis was identified. Paracentesis Local anesthesia was administered. The peritoneal cavity was accessed and fluid return confirmed position. Ascites was drained. The catheter was then removed, and a sterile bandage was applied. Paracentesis access technique: Real-time ultrasound guidance Catheter placed: 5F Yueh Post-drainage ultrasound: No visible ascites Additional Details Additional description of procedure: None Equipment details: None Specimens removed: Abdominal fluid Estimated blood loss (mL): Less than 10 Standardized report: [email or web address] Attestation Signer name: Bev Roberson MD I attest that I was present for the entire procedure. I reviewed the stored images and agree with the report as written. Signed by: Bev Roberson MD on 03/06/2019 3:01 PM
[2019-03-06 15:05] LABS: BODY FLUID APPEARANCE TURBID; BODY FLUID COLOR STRAW; BODY FLUID TYPE PERITONEAL
[2019-03-06 17:28] LABS: RBC,BODY FLUID 9232 cells/uL; WBC,BODY FLUID 1089 cells/uL
[2019-03-06 17:53] LABS: LYMPHOCYTES,BODY FLUID 80 %; OTHER CELLS,BODY FLUID 20 %
== END ==
LOC: US 12:49
PROVIDERS: ATTEND Internal Medicine Gastroenterology
DX: K74.60 Unspecified cirrhosis of liver (principal); R18.8 Other ascites
CPT/HCPCS: 36415; 49083; 87070; 87116; 87205; 87206; 88112; 88305; 89051; C1729

== ENCOUNTER 2019-03-14 23:43 | Inpatient (IN) | payer MEDICARE ==
[~2019-03-14] VITALS: Ht 149.9 cm; Wt 66.4 kg
[~2019-03-14 23:43] MED LIST changes: -BACTRIM DS TAB1 EACH PO; -CENTRUM SILVER1 EAC4 PO; -MIDODRINE HCL5 MG PO; -ZOFRAN4 MG PO
[2019-03-15] VITALS (19 sets, daily range): BP systolic 83–109; BP diastolic 45–67
[2019-03-15] MEDS ORDERED: ONDANSETRON HCL INJ 2MG/ML 2ML 2 MG/ML VIAL IV STA (00:12)
[2019-03-15 00:20] LABS: BASOPHILS % 0.2 % (0.0-1.0); EOSINOPHILS # (AUTO) 0.1 (0.0-0.4); EOSINOPHILS % 1.1 % (0.0-6.0); HEMATOCRIT 28.4 % (34.2-44.1); HEMOGLOBIN 10.3 g/dL (12.0-16.0); LYMPHOCYTES # (AUTO) 1.8 (1.0-3.2); LYMPHOCYTES % 21.7 % (18.0-39.1); MEAN CORPUSCULAR HEMOGLOBIN 39.5 pg (28-32); MEAN CORPUSCULAR HGB CONC 36.3 g/dL (31-35); MEAN CORPUSCULAR VOLUME 108.8 fL (81-99); MONOCYTES # (AUTO) 1.1 (0.2-0.8); MONOCYTES % 13.3 % (4.4-11.3); NEUTROPHILS # (AUTO) 5.1 (2.1-6.9); NEUTROPHILS % 62.8 % (38.7-80.0); PLATELET COUNT 174 x10e3/uL (140-360); RED BLOOD COUNT 2.61 x10e6/uL (3.6-5.1); RED CELL DISTRIBUTION WIDTH 15.4 % (11.7-14.4)
[2019-03-15 01:15] LABS: BILIRUBIN,URINE NEGATIVE (NEGATIVE); CLARITY,URINE CLOUDY (CLEAR); COLOR,URINE YELLOW (YELLOW); KETONES,URINE NEGATIVE (NEGATIVE); LEUKOCYTE ESTERASE ,URINE NEGATIVE (NEGATIVE); NITRITE,URINE NEGATIVE (NEGATIVE); PROTEIN,URINE DIPSTICK 2+ (NEGATIVE); URINE UROBILINOGEN 0.2 mg/dL (0.2 - 1)
[2019-03-15 01:21] LABS: INR 1.27; PROTHROMBIN TIME 16.5 seconds (11.9-14.5)
[2019-03-15 01:22] LABS: PARTIAL THROMBOPLASTIN TIME 34.5 seconds (23.8-35.5)
[2019-03-15 01:25] LABS: BACTERIA,URINE FEW /HPF; EPITHELIAL CELLS,URINE FEW /LPF; RBC,URINE >50 /HPF (0-5); WBC,URINE (MAN) 0-5 /HPF (0-5)
[2019-03-15 01:30] LABS: AMYLASE 68 U/L (25-125); LIPASE 55 U/L (8-78)
[2019-03-15 01:32] LABS: ALBUMIN/GLOBULIN RATIO 0.3 (0.8-2.0); ANION GAP 13.4 mmol/L (8-16); CREATININE, SERUM 3.2 mg/dL (0.57-1.11)
[2019-03-15 01:36] LABS: CALCIUM 9.9 mg/dL (8.4-10.2); POTASSIUM 6.4 mmol/L (3.5-5.1)
[2019-03-15] MEDS ORDERED: DEXTROSE 50% SYRINGE 50 ML IV STA (01:37)
[2019-03-15] MEDS ORDERED: CALCIUM CHLORIDE 10% 1.36 MEQ/ML 10ML SYR IV STA (01:37)
[2019-03-15] MEDS ORDERED: SODIUM BICARBONATE 8.4% INJ 50 ML SYR IV STA (01:37)
[2019-03-15 01:38] LABS: CREATINE KINASE MB 1.3 ng/mL (0-5.0)
[2019-03-15] MEDS ORDERED: SODIUM CHLORIDE 0.9% 1000ML 1,000 ML IV SCH (01:45)
[2019-03-15] MEDS ORDERED: INSULIN REGULAR, HUMAN 100 UNIT/1 ML 3ML VIAL IV ONE ×2 (01:45→10:00)
[2019-03-15] MEDS ORDERED: DIATRIZOATE MEGL/DIATRIZOA SOD 30 ML BTL PO ONE (01:50)
[2019-03-15] MEDS: SOD POLYSTYRENE SULFONATE SUSP 15 GM/60 ML BTL PO ONE ×2 (02:07→04:13)
--- NOTE | 2019-03-15 03:30 | Diagnostic Imaging Report ---
EXAM: CT of the abdomen and pelvis WITHOUT contrast HISTORY: Abdominal pain, vomiting, cirrhosis, ascites, kidney stones COMPARISON: CT of the abdomen and pelvis February 10, 2019 TECHNIQUE: The abdomen and pelvis were scanned utilizing a multidetector helical scanner. Coronal and sagittal reformats are available. PROTOCOL: Routine IV CONTRAST: None, which limits sensitivity and specificity of evaluation of the soft tissues and vascular structures. ORAL CONTRAST: None, the patient reportedly declined, which limits sensitivity and specificity of evaluation of the bowel. RADIATION DOSE: Total DLP: 193.94 mGy*cm Estimated effective dose: (DLP x 0.015 x size factor) Dose modulation, iterative reconstruction, and/or weight based adjustment of the mA/kV was utilized to reduce the radiation dose to as low as reasonably achievable. COMPLICATIONS: None FINDINGS: LOWER THORAX: Unremarkable. HEPATOBILIARY: Diffusely heterogeneous with cirrhotic morphology. Multiple small gallstones. SPLEEN: No splenomegaly. PANCREAS: No focal masses or ductal dilatation. ADRENALS: No adrenal nodule. KIDNEYS/URETERS: No hydronephrosis, stones, or solid mass lesion identified. PELVIC ORGANS/BLADDER: The uterus is mildly anteflexed. PERITONEUM / RETROPERITONEUM: Large volume ascites. GI TRACT: On limited evaluation of the gastrointestinal tract, no bowel dilation. Nonspecific proximal small bowel wall thickening. LYMPH NODES: No pathologically enlarged lymph nodes. Prominent gastrohepatic lymph node. VESSELS: Diffuse scattered atherosclerotic vascular calcifications. Persistent findings compatible with portal hypertension. BONES and JOINTS: No aggressive osseous lesion or acute fracture. SOFT TISSUES: Diffuse muscle atrophy. IMPRESSION: 1. Nonspecific proximal small bowel wall edema, consider infectious or inflammatory enteritis. 2. Cirrhosis with portal hypertension and associated ascites. 3. Cholelithiasis. Signed by: Dr. Cruz Cooper D.O., M.M.M. on 03/15/2019 3:27 AM
[2019-03-15] MEDS ORDERED: ONDANSETRON HCL INJ 2MG/ML 2ML 2 MG/ML VIAL IV PRN (03:45)
[2019-03-15] MEDS ORDERED: XIFAXAN550 MG PO (03:51)
[2019-03-15] MEDS ORDERED: ZOFRAN4 MG PO (03:51)
[2019-03-15] MEDS ORDERED: BACTRIM DS TAB1 EACH PO (03:51)
[2019-03-15] MEDS ORDERED: CONSTULOSE10 GM/15 M PO (03:52)
[2019-03-15] MEDS ORDERED: CENTRUM SILVER1 EAC4 PO (03:53)
[2019-03-15] MEDS ORDERED: DOCUSATE SODIUM LIQD 100 MG/10 ML UDC NG ONE (08:45)
[2019-03-15] MEDS ORDERED: LACTULOSE SYRUP 20 GM/30 ML UDC PO PRN (08:45)
[2019-03-15] MEDS ORDERED: SODIUM BICARBONATE 650 MG TAB PO SCH (09:00)
[2019-03-15 09:10] LABS: ALBUMIN 1.9 g/dL (3.5-5.0); ALBUMIN/GLOBULIN RATIO 0.4 (0.8-2.0); ANION GAP 14.2 mmol/L (8-16); CREATININE, SERUM 2.78 mg/dL (0.57-1.11)
[2019-03-15 09:23] LABS: POTASSIUM 6.2 mmol/L (3.5-5.1)
[2019-03-15] MEDS ORDERED: DOCUSATE SODIUM 100 MG CAP PO ONE (09:30)
[2019-03-15] MEDS ORDERED: DEXTROSE 5% 1,000 ML IV SCH (10:00)
[2019-03-15] MEDS ORDERED: DEXTROSE 50% SYRINGE 50 ML IV ONE (10:30)
[2019-03-15] MEDS: RIFAXIMIN 550 MG TABLET PO SCH ×2 (10:40→17:30)
[2019-03-15] MEDS: MEGESTROL ACETATE 40 MG TAB PO SCH ×2 (10:40→17:30)
[2019-03-15] MEDS: SODIUM BICARBONATE 8.4% 100 ML in DEXTROSE 5% 1,000 ML IV SCH ×2 (11:00→23:03)
[2019-03-15] MEDS: ALBUMIN 25% 25GM 100ML 0.25 GM/ML BTL IV SCH ×2 (12:00→18:08)
[2019-03-15] MEDS: MIDODRINE HCL 5 MG TABLET PO SCH ×3 (12:00→17:30)
--- NOTE | 2019-03-15 14:20 | Diagnostic Imaging Report ---
Abdominal ultrasound. History: Ascites. Comparison: 01/28/2019. Discussion: Transverse and longitudinal images of the 4 quadrants of the abdomen were obtained demonstrating moderate free fluid in the right abdomen. IMPRESSION: Moderate ascites is present predominantly on the right. Signed by: Ari Mota on 03/15/2019 2:17 PM
[2019-03-15 15:15] LABS: ANION GAP 14.2 mmol/L (8-16); CALCIUM 10.3 mg/dL (8.4-10.2); CREATININE, SERUM 2.88 mg/dL (0.57-1.11); MAGNESIUM 2.5 MG/DL (1.3-2.1)
[2019-03-15 15:21] LABS: POTASSIUM 5.2 mmol/L (3.5-5.1)
--- NOTE | 2019-03-15 16:38 | Consultation ---
DATE OF CONSULTATION: Nephrology Consultation Note CHIEF COMPLAINT: Nausea, vomiting. REASON FOR CONSULTATION: Acute kidney injury, hyponatremia, and electrolyte abnormalities. HISTORY OF PRESENT ILLNESS: This is a 73-year-old female, who which I have seen in the past, who has underlying alcoholic liver cirrhosis, severe liver failure, medical noncompliance, who basically comes into the hospital with complaints of nausea and vomiting ongoing for the last 3 days. She reports that she has been having some decreased oral intake since Monday. She recently saw her liver specialist in [facility] and was told to be on the liver transplant, but needs to go to alcohol anonymous program. She reports her last alcohol drink was back in November 2018 during [facility]. Since then, she reports she has been sober and has not had any alcoholic beverages. The patient was seen and evaluated at bedside on the medical floor in the ICU. She is currently doing well with no other issues. On admission, she was found to be hyperkalemic, metabolic acidosis, hyponatremic, and acute kidney injury. Nephrology was consulted for electrolyte and renal failure abnormalities, and management. REVIEW OF SYSTEMS: Pertinent positives: Nausea, vomiting, decreased oral intake. Pertinent negatives: Denies any chest pain, palpitation, dysuria, hematuria, frequency, urgency, lightheadedness, dizziness, abdominal pain, headaches, shortness of breath, cough, congestion, fever, or any other complaints. The rest of the 14-point review of systems are reviewed with the patient and are negative. ALLERGIES: NO KNOWN DRUG ALLERGIES. HOME MEDICATIONS: Lasix 20 mg b.i.d., omeprazole, Aldactone 50 mg p.o. b.i.d., Bactrim, tramadol, folic acid, lactulose, Zofran, Megace, and rifaximin. PAST MEDICAL HISTORY: Alcoholic liver cirrhosis, chronic alcoholic, acid reflux. PAST SURGICAL HISTORY: None. FAMILY HISTORY: Hypertension and diabetes. SOCIAL HISTORY: No drugs. Social smoker. Chronic alcoholic, used to drink 6-pack of beer per day. Last alcoholic drink was November of 2018. PHYSICAL EXAMINATION: VITAL SIGNS: Temperature is 98, pulse 84, respiratory rate is 20, blood pressure 100/51, and pulse ox 97% on room air. GENERAL: Not in acute distress. Alert and oriented x3. Cooperative on examination. HEENT: Head; normocephalic, atraumatic. Eyes; pupils are equal, round, and reactive to light bilaterally. Extraocular movements intact bilaterally. Throat; no evidence of erythema or exudates in the posterior pharynx. Has poor dentition. NECK: Supple. Good range of motion. PULMONARY: Clear to auscultation bilaterally. No wheezing, no rales, no rhonchi, no crackles appreciated. CARDIOVASCULAR: Positive S1 and S2. No murmurs, rubs, or gallops appreciated. ABDOMEN: Distended, but soft, and nontender to palpation. Bowel sounds present. MUSCULOSKELETAL: Strength is 5/5 throughout. No evidence of any muscle deficits on examination. No weakness appreciated. NEUROLOGIC: Cranial nerves II through XII grossly intact. No evidence of any neurological deficits on exam. SKIN: Intact. Warm to touch. Good cap refill. PSYCHIATRIC: Normal affect and mood. EXTREMITIES: No edema. Good range of motion throughout. LABORATORY FINDINGS: Show white count 8.1, hemoglobin 10.3, hematocrit is 28, and platelets of 174. Coagulation; PT 16.5, INR 1.27, and PTT 34. Chemistry; sodium on admission was 114, now 121 after saline given, potassium 6.4 admission, now 6.2, chloride 99, bicarbonate 14, anion gap of 14, BUN is 51, creatinine is 2.7, on admission was 3.2, and glucose 66. Total bilirubin is 1.8, AST 45, ALT 19, and alkaline phosphatase 141. Troponins are negative. Albumin was 1.9, lipase 55, and amylase 68. UA shows RBCs greater than 52 plus protein, cloudy urine. MICROBIOLOGY: None. IMAGING STUDIES: CT abdomen and pelvis shows nonspecific proximal small bowel wall edema, consider infectious or inflammatory enteritis. Cirrhosis with portal hypertension and associated ascites. Cholelithiasis. IMPRESSION: 1. Hepatorenal syndrome type 2. 2. Alcoholic liver cirrhosis. 3. Acute kidney injury, likely secondary to prerenal azotemia from underlying dehydration as well as underlying hepatorenal syndrome type 2. 4. Metabolic acidosis. 5. Hyperkalemia. 6. Hyponatremia. PLAN: At this time, the patient was given sodium bicarbonate amps in the ER to raise her bicarbonate level. Current repeat chemistry shows a bicarbonate of 14. Her sodium did jump from 114 to 121. I did discontinue the normal saline that was started in the ER and I will put her on D5 with 2 amps of sodium bicarbonate and have hypotonic solution to see if we can drop her sodium a little lower. In the event, her sodium does not go lower, I will go ahead and give her DDAVP at 2 mcg subcutaneous x1. We will try to avoid rapid correction of sodium. In terms of her potassium, Kayexalate was given. Also, schedule lactulose as well as well as 200 of p.o. Colace. In terms of her metabolic acidosis, I put her on a bicarb drip. I am going to monitor that very closely. She is also currently on albumin 25 g IV q.6 hours, scheduled for the next 48 hours and started on oral midodrine 10 mg p.o. t.i.d. to maintain elevated blood pressure readings to avoid hepatorenal syndrome type 1. I will also monitor her urine output very closely and it seems she has response to fluids, as her creatinine on admission was 3.2, now 2.7. We will be repeat chemistry at 3 p.m. this afternoon. I discussed the plan of care with the nursing staff, Kane. She understands the plan of care. I discussed the plan of care with the patient and the family at bedside. The 3 p.m. labs are important and we will determine the next plan of care based on those labs. MD JIMMY Lovelace/KATELINL /[id number]
[2019-03-15 21:25] LABS: ANION GAP 13.7 mmol/L (8-16); CALCIUM 9.4 mg/dL (8.4-10.2); CREATININE, SERUM 2.66 mg/dL (0.57-1.11); POTASSIUM 4.7 mmol/L (3.5-5.1)
[2019-03-16] VITALS (22 sets, daily range): BP systolic 79–104; BP diastolic 44–58
[2019-03-16] MEDS: ALBUMIN 25% 25GM 100ML 0.25 GM/ML BTL IV SCH ×4 (00:20→18:45)
[2019-03-16] MEDS ORDERED: OCTREOTIDE ACETATE 0.05 MG/ML AMP ONE (02:59)
[2019-03-16] MEDS: OCTREOTIDE ACETATE 0.1 MG/ML 100MCG AMP SQ SCH ×3 (03:22→19:58)
[2019-03-16 04:05] LABS: ALBUMIN 3.1 g/dL (3.5-5.0); ANION GAP 13.4 mmol/L (8-16); CALCIUM 9.3 mg/dL (8.4-10.2); CREATININE, SERUM 2.52 mg/dL (0.57-1.11); POTASSIUM 4.4 mmol/L (3.5-5.1)
[2019-03-16 04:23] LABS: BASOPHILS % 0.4 % (0.0-1.0); EOSINOPHILS # (AUTO) 0.1 (0.0-0.4); EOSINOPHILS % 1.7 % (0.0-6.0); LYMPHOCYTES % 37.5 % (18.0-39.1); MEAN CORPUSCULAR HEMOGLOBIN 38.9 pg (28-32); MEAN CORPUSCULAR HGB CONC 37.2 g/dL (31-35); MEAN CORPUSCULAR VOLUME 104.4 fL (81-99); MONOCYTES # (AUTO) 0.9 (0.2-0.8); MONOCYTES % 17.3 % (4.4-11.3); NEUTROPHILS # (AUTO) 2.3 (2.1-6.9); NEUTROPHILS % 42.7 % (38.7-80.0); PLATELET COUNT 105 x10e3/uL (140-360); RED CELL DISTRIBUTION WIDTH 14.6 % (11.7-14.4)
[2019-03-16] MEDS: PANTOPRAZOLE 40 MG 10ML VIAL IV SCH ×2 (04:23→17:00)
[2019-03-16 04:25] LABS: HEMATOCRIT 18.8 % (34.2-44.1)
--- NOTE | 2019-03-16 04:56 | NUR ---
tried to get a hold of the family to get consent was unable to get a hold of them on the only number we had at this time called [phone]. lab was notified to hold the blood until consent is obtained.
[2019-03-16] MEDS ORDERED: SODIUM CHLORIDE 0.9% 250ML 250 ML IV ONE (05:00)
[2019-03-16 05:33] LABS: HEMATOCRIT 18.8 % (34.2-44.1); HEMOGLOBIN 6.8 g/dL (12.0-16.0)
[2019-03-16] MEDS ORDERED: OCTREOTIDE ACETATE 0.1 MG/ML 100MCG AMP SQ SCH (06:00)
[2019-03-16] MEDS: MIDODRINE HCL 5 MG TABLET PO SCH ×3 (08:00→17:30)
[2019-03-16] MEDS: MEGESTROL ACETATE 40 MG TAB PO SCH ×2 (09:00→17:00)
[2019-03-16] MEDS: RIFAXIMIN 550 MG TABLET PO SCH ×2 (09:00→17:00)
[2019-03-16] MEDS: SODIUM BICARBONATE 8.4% 100 ML in DEXTROSE 5% 1,000 ML IV SCH (09:00)
--- NOTE | 2019-03-16 11:28 | Diagnostic Imaging Report ---
Hepatobiliary Scan with Gallbladder Ejection Fraction Clinical information: 73 F with cirrhosis and chronic pancreatitis; now with severe abdominal pain Technique: Following intravenous administration of 6.3 millicuries of Tc-99m mebrofenin, dynamic images of the abdomen in the anterior projection were obtained through 33 minutes. Sincalide (CCK analog) 1.3 micrograms was administered intravenously over 30 minutes with additional imaging for determination of gallbladder ejection fraction. Discussion: Perfusion of the liver is normal. Extraction of tracer by the liver parenchyma is normal. Tracer appears promptly within the biliary tract. The gallbladder begins to fill at 20 minutes post injection of tracer and fills adequately. Tracer is seen in the small bowel during the sincalide infusion. There is no contractile response by the gallbladder to the pharmacologic dose of sincalide. No emptying of the gallbladder occurs during the 30 minute infusion. Impression: 1. Filling of the gallbladder excludes acute cystic duct obstruction/acute cholecystitis. 2. The gallbladder ejection fraction is undefined as there is no emptying of the gallbladder during the infusion of sincalide. This absence of a contractile response to sincalide supports the clinical diagnosis of chronic cholecystitis/gallbladder dyskinesia. Signed by: Dr. Dionne Ramey M.D. on 03/16/2019 11:25 AM
[2019-03-16 13:33] LABS: ANION GAP 13.5 mmol/L (8-16); CALCIUM 8.7 mg/dL (8.4-10.2); CREATININE, SERUM 2.3 mg/dL (0.57-1.11); POTASSIUM 4.5 mmol/L (3.5-5.1)
--- NOTE | 2019-03-16 15:13 | Progress Note ---
DATE: 03/16/2019 Nephrology Progress Note SUBJECTIVE: The patient is actually doing much better today. Her labs are improved. I am waiting on a stat chemistry at this time. PHYSICAL EXAMINATION: VITAL SIGNS: Temperature is 99, pulse 71, respiratory rate is 18, blood pressure is 88/46, pulse ox 96% on room air. GENERAL: She is jaundiced on examination. HEENT: Head; normocephalic and atraumatic. Eyes; pupils are equal, round, and reactive to light bilaterally. Extraocular movements intact bilaterally. Throat; no evidence of erythema or exudates in the posterior pharynx. Has poor dentition. NECK: Supple. Good range of motion. PULMONARY: Clear to auscultation bilaterally. No wheezing, no rales, no rhonchi, no crackles appreciated. CARDIOVASCULAR: Positive S1 and S2. No murmurs, rubs, or gallops appreciated. ABDOMEN: Soft, nondistended, and nontender to palpation. Bowel sounds present. MUSCULOSKELETAL: Strength is 5/5 throughout. No evidence of any muscle deficits on examination. No weakness appreciated. NEUROLOGIC: Cranial nerves II through XII grossly intact. No evidence of any neurological deficits on exam. SKIN: Intact. Warm to touch. Good cap refill. PSYCHIATRIC: Normal affect and mood. EXTREMITIES: No edema. Good range of motion throughout. LABORATORY DATA: Chemistry from this morning shows sodium 125, potassium 4.4, chloride 93, bicarbonate 23, anion gap of 13, BUN 42, creatinine is 2.5, glucose is 88, calcium 9.3, total bilirubin is 1.9, direct 1, AST 42, ALT 14, alkaline phosphatase 101, total protein 6.3, albumin is 3.1, lipase is 55. MICROBIOLOGY: None. IMPRESSION: 1. Hepatorenal syndrome type 2. 2. Alcoholic liver cirrhosis. 3. Acute kidney injury, secondary to prerenal azotemia from dehydration, also concerns for acute tubular necrosis and hepatorenal syndrome type 2. 4. Metabolic acidosis. 5. Hyperkalemia. 6. Hyponatremia. PLAN: At this time, there is a stat chemistry level pending. IV fluids have been discontinued since this morning. Labs reviewed, shows electrolytes are stable. Bicarbonate is better. Potassium is much improved. Sodium this morning was 125. We will get and wait for the repeat sodium level. She is currently getting 2 units packed RBCs. Continue with midodrine and albumin for hepatorenal syndrome. Once the chemistries are back that I order stat, we will determine the next plan of care. I discussed this with the nursing staff. MD JIMMY Lovelace/TERESA /[id number]
[2019-03-16] MEDS: SODIUM CHLORIDE 0.9% 1000ML 1,000 ML IV SCH (17:00)
--- NOTE | 2019-03-16 19:00 | NUR ---
Bedside report received from Javon Montalvo RN. Pt received resting in bed with eyes closed, awakens to voice, pt reports no pain or discomfort at this time, no signs of distress noted at this time, pt on room air with rr 21 and spo2% 97%. Call light placed in pts left hand and pt has cell phone in right hand.
--- NOTE | 2019-03-16 19:00 | NUR ---
Bedside report given to Javon GUZMAN. Notified him of pending 2 units PRBCs to transfuse, Hbg level and lab results, and pending HIDA scan which we are awaiting call back from radiology at this time. Blood transfusion consent obtained and medicinal plant picker sheets printed. Addendum: 03/16/19 at 2017 by Rosa Siddiqui RN Correct time for this noted should be 0700 03/16/19.
[2019-03-17] VITALS (16 sets, daily range): BP systolic 92–127; BP diastolic 48–72
[2019-03-17] MEDS: ALBUMIN 25% 25GM 100ML 0.25 GM/ML BTL IV SCH ×2 (00:27→06:20)
[2019-03-17] MEDS: OCTREOTIDE ACETATE 0.1 MG/ML 100MCG AMP SQ SCH ×3 (03:25→21:44)
[2019-03-17 04:47] LABS: BASOPHILS % 0.3 % (0.0-1.0); EOSINOPHILS # (AUTO) 0.2 (0.0-0.4); EOSINOPHILS % 2.8 % (0.0-6.0); HEMATOCRIT 25.3 % (34.2-44.1); LYMPHOCYTES # (AUTO) 1.8 (1.0-3.2); LYMPHOCYTES % 28.9 % (18.0-39.1); MEAN CORPUSCULAR HEMOGLOBIN 35.9 pg (28-32); MEAN CORPUSCULAR HGB CONC 35.6 g/dL (31-35); MEAN CORPUSCULAR VOLUME 100.8 fL (81-99); MONOCYTES # (AUTO) 0.8 (0.2-0.8); MONOCYTES % 13.1 % (4.4-11.3); NEUTROPHILS # (AUTO) 3.3 (2.1-6.9); NEUTROPHILS % 54.4 % (38.7-80.0); PLATELET COUNT 87 x10e3/uL (140-360); RED BLOOD COUNT 2.51 x10e6/uL (3.6-5.1); RED CELL DISTRIBUTION WIDTH 18.8 % (11.7-14.4)
[2019-03-17 05:05] LABS: CALCIUM 8.7 mg/dL (8.4-10.2); CREATININE, SERUM 2.29 mg/dL (0.57-1.11)
[2019-03-17 05:45] LABS: ALBUMIN 3.8 g/dL (3.5-5.0); BILIRUBIN,DIRECT 1.3 mg/dL (0.0-0.5)
[2019-03-17] MEDS: PANTOPRAZOLE 40 MG 10ML VIAL IV SCH ×2 (06:20→17:12)
--- NOTE | 2019-03-17 07:55 | NUR ---
Small nickel-sized pale pink with brown scabbed area above on sacrum; no open areas noted. Wound care consult ordered to follow.
[2019-03-17] MEDS: RIFAXIMIN 550 MG TABLET PO SCH ×2 (09:51→17:12)
[2019-03-17] MEDS: MIDODRINE HCL 5 MG TABLET PO SCH ×3 (09:51→17:12)
[2019-03-17] MEDS: SODIUM CHLORIDE 0.9% 1000ML 1,000 ML IV SCH (09:51)
[2019-03-17] MEDS: MEGESTROL ACETATE 40 MG TAB PO SCH ×2 (09:51→17:12)
--- NOTE | 2019-03-17 12:00 | NUR ---
Dr Riley and Ángel Mcdonald, LITHOGRAPHIC PLATEMAKER to bedside, orders rec'd.
--- NOTE | 2019-03-17 14:13 | NUR ---
Report called to THOMAS Paige for Room 207.
--- NOTE | 2019-03-17 15:08 | Progress Note ---
DATE: 03/17/2019 Nephrology Progress Note SUBJECTIVE: The patient is doing well today. Her sodium is stable at 128. Rest electrolytes are stable. Creatinine is still elevated, likely to be a new baseline I believe. She is tolerating diet well. She is the process of being transferred from ICU to the medical floor. PHYSICAL EXAMINATION: VITAL SIGNS: Temperature is 98.4, pulse 68, respiratory rate 18, blood pressure was 92/52, and pulse ox 97% on room air. GENERAL: In no acute distress. Alert and oriented x3. Cooperative on examination. HEENT: Head is normocephalic and atraumatic. Eyes; pupils are equal, round, and reactive to light bilaterally. Extraocular movements are intact bilaterally. Neck is supple and good range of motion. Throat; no evidence of erythema or exudates in the posterior pharynx. Has poor dentition. PULMONARY: Clear to auscultation bilaterally. No wheezing, rales, or rhonchi. No crackles appreciated. CARDIOVASCULAR: Positive S1, S2. No murmurs, rubs, or gallops. ABDOMEN: Soft, nontender, and nontender to palpation. Bowel sounds present. MUSCULOSKELETAL: Strength is 5/5 throughout. No evidence of any muscle deficits on examination. No weakness appreciated. NEUROLOGIC: Cranial nerves II through XII grossly intact. No evidence of any neurological deficits on exam. SKIN: Intact. Warm to touch. Good cap refill. PSYCHIATRIC: Normal affect and mood. EXTREMITIES: No edema. Good range of motion throughout. LABORATORY FINDINGS: Show white count 6.4, hemoglobin 9, hematocrit 25, and platelets of 87. Coagulation; PT 16, INR 1.2, PTT 34. Chemistry; sodium 128, potassium 4, chloride 97, bicarb 22, anion gap of 13, BUN 39, creatinine is 2.3, glucose is 95, calcium 8.7, albumin is 3.8. HIDA scan performed shows filling of the gallbladder excluding acute cystic duct obstruction . The gallbladder ejection fraction is on the findings. There are no changes in the gallbladder during the infusion of the sincalide. The absence of the contractile response to the sincalide supports the clinical diagnosis of chronic cholecystitis or gallbladder dyskinesia. IMPRESSION: 1. Hepatorenal syndrome type 2. 2. Alcoholic liver cirrhosis. 3. Acute kidney injury, secondary to prerenal azotemia from dehydration. Concerns for ATN and hepatorenal syndrome type 2. 4. Metabolic acidosis. 5. Hyperkalemia. 6. Hyponatremia, chronic. PLAN: At this time, electrolytes sodium was likely to be chronic in nature due to hepatorenal syndrome. Continue IV fluids. Electrolytes are stable. Creatinine is still elevated and it seems she may be at early baseline based on her hepatorenal syndrome type 2. We will continue with oral midodrine. She may also have a component of ATN. We will need to see what happens with the creatinine over the next several days. Her potassium has improved. Her HIDA scan is positive, likely needs some sort of cholecystectomy, but she may be high risk. She is on underlying alcoholic liver cirrhosis. She is asymptomatic though, so she truly may not need any surgical intervention. Otherwise, we will continue same plan of care and monitor very closely. We will get a.m. labs. Discussed plan of care with nursing staff. MD JIMMY Lovelace/MODL /[id number]
--- NOTE | 2019-03-17 15:35 | NUR ---
Visit made by the Spiritual Care Department Pastoral Visitor, Rick Grider, PV provided pastoral presence, prayer, communion, hospitality, and supportive listening. Pastoral Visitor informed pt/family of the scope of [employer] and availability. QIAN UNDERWOOD Equipment Washer Spiritual Care Department O: [phone] Pager: [phone] ([phone] calling from)
--- NOTE | 2019-03-17 19:00 | NUR ---
received report from day nurse. patient is resting comfortably in bed. bed is in lowest position and call bella is within reach. will continue to monitor patient.
[2019-03-18] VITALS (8 sets, daily range): BP systolic 89–119; BP diastolic 54–71
[2019-03-18] MEDS: METOCLOPRAMIDE HCL 10 MG/2ML VIAL IV SCH ×4 (00:06→16:03)
[2019-03-18] MEDS: OCTREOTIDE ACETATE 0.1 MG/ML 100MCG AMP SQ SCH ×3 (03:29→17:38)
[2019-03-18 03:42] LABS: BASOPHILS % 0.3 % (0.0-1.0); EOSINOPHILS # (AUTO) 0.2 (0.0-0.4); EOSINOPHILS % 2.5 % (0.0-6.0); HEMATOCRIT 28.3 % (34.2-44.1); LYMPHOCYTES # (AUTO) 1.8 (1.0-3.2); LYMPHOCYTES % 22.7 % (18.0-39.1); MEAN CORPUSCULAR HEMOGLOBIN 35.8 pg (28-32); MEAN CORPUSCULAR HGB CONC 35.3 g/dL (31-35); MEAN CORPUSCULAR VOLUME 101.4 fL (81-99); MONOCYTES % 13.3 % (4.4-11.3); NEUTROPHILS # (AUTO) 4.7 (2.1-6.9); NEUTROPHILS % 60.7 % (38.7-80.0); PLATELET COUNT 93 x10e3/uL (140-360); RED BLOOD COUNT 2.79 x10e6/uL (3.6-5.1); RED CELL DISTRIBUTION WIDTH 18.3 % (11.7-14.4)
[2019-03-18 04:00] LABS: ALBUMIN 3.4 g/dL (3.5-5.0); ALBUMIN/GLOBULIN RATIO 1.4 (0.8-2.0); ANION GAP 13.8 mmol/L (8-16); CALCIUM 8.4 mg/dL (8.4-10.2); CREATININE, SERUM 2.07 mg/dL (0.57-1.11); POTASSIUM 3.8 mmol/L (3.5-5.1)
[2019-03-18] MEDS: PANTOPRAZOLE 40 MG 10ML VIAL IV SCH ×2 (05:23→16:02)
[2019-03-18] MEDS: SODIUM CHLORIDE 0.9% 1000ML 1,000 ML IV SCH ×2 (05:23→20:29)
--- NOTE | 2019-03-18 06:41 | NUR ---
report given to day nurse. patient is resting comfortably in bed. bed is in lowest position and call bella is within reach.
[2019-03-18 08:01] LABS: FERRITIN 421.63 ng/mL (4.63-204.00)
[2019-03-18] MEDS: MEGESTROL ACETATE 40 MG TAB PO SCH ×2 (08:21→16:03)
[2019-03-18] MEDS: RIFAXIMIN 550 MG TABLET PO SCH ×2 (08:21→16:03)
[2019-03-18] MEDS: MIDODRINE HCL 5 MG TABLET PO SCH ×3 (08:21→16:02)
[2019-03-18 08:39] LABS: AMYLASE 46 U/L (25-125); LIPASE 51 U/L (8-78)
[2019-03-18 09:14] LABS: FOLATE 16.4 ng/mL (7.0-15.4)
[2019-03-18 10:03] LABS: BILIRUBIN,URINE SMALL (NEGATIVE); CLARITY,URINE CLOUDY (CLEAR); COLOR,URINE ORANGE (YELLOW); KETONES,URINE NEGATIVE (NEGATIVE); LEUKOCYTE ESTERASE ,URINE NEGATIVE (NEGATIVE); NITRITE,URINE NEGATIVE (NEGATIVE); URINE UROBILINOGEN 0.2 mg/dL (0.2 - 1)
[2019-03-18 10:04] LABS: PROTEIN,URINE DIPSTICK 3+ (NEGATIVE)
--- NOTE | 2019-03-18 10:20 | NUR ---
WOUND CARE NURSE INITIAL VISIT. 73 YEAR OLD FEMALE ADMITTED TO [facility] WITH DX OF ABDOMINAL PAIN, CIRRHOSIS, HYPERKALEMIA, AND HYPONATREMIA. HEAD TO TOE SKIN ASSESSMENT PERFORMED TODAY. PT IS AAOX3, AMBULATORY AND ABLE TO REPOSITION SELF. UPON ASSESSMENT NO AREAS OF CONCERN ARE NOTED, NO OPEN WOUNDS ARE PRESENT AT THIS TIME. LABS: WBC: 7.74 ALB: 3.4 RECOMMENDATIONS: ENCOURAGE PT TO TURN EVERY TWO HOURS AND PRN. CONTINUE WITH ALTERNATING LOW AIR LOSS MATTRESS. PROVIDE PT WITH BILATERAL HEEL PROTECTORS AND PILLOW SUSPENSIONS WHILE IN BED . THANKS FOR THIS CONSULTATION. Addendum: 03/18/19 at 1023 by Rosalinda Gifford RN Amended: Links added.
[2019-03-18 10:34] LABS: AMORPHOUS SEDIMENT,URINE FEW (FEW); BACTERIA,URINE MANY /HPF; EPITHELIAL CELLS,URINE MANY /LPF; RBC,URINE >50 /HPF (0-5); WBC,URINE (MAN) >50 /HPF (0-5)
--- NOTE | 2019-03-18 11:23 | NUR ---
EDUCATED ABOUT IMM, SIGNED, FILED IN CHART, WITH COPY LEFT WITH FAMILY AT BEDSIDE.
--- NOTE | 2019-03-18 11:28 | NUR ---
Nessa Bucio FERRY TERMINAL SUPERVISOR aware of urine sample results. See orders
[2019-03-18] MEDS ORDERED: SODIUM CHLORIDE 1 GM TAB PO ONE (12:30)
[2019-03-18] MEDS ORDERED: FUROSEMIDE INJ 10 MG/ML 4 ML VIAL IV ONE (12:30)
--- NOTE | 2019-03-18 14:33 | Progress Note ---
DATE: 03/18/2019 Nephrology Progress Note SUBJECTIVE: The patient is doing well today with no other issues today. Sodium is still low. Creatinine is down trending slowly. PHYSICAL EXAMINATION: VITAL SIGNS: Temperature is 97.1, pulse is 70, respiratory rate 16, blood pressure 119/71, pulse ox is 98% on room air. GENERAL: Not in acute distress, alert and oriented x3. Cooperative on examination. HEENT: Head is normocephalic and atraumatic. Eyes; pupils are equal, round, and reactive to light bilaterally. Extraocular movements intact bilaterally. Throat; no evidence of erythema or exudates in the posterior pharynx. Has poor dentition. NECK: Supple, good range of motion throughout. PULMONARY: Clear to auscultation bilaterally. No wheezing, rales, or rhonchi. No crackles appreciated. CARDIOVASCULAR: Positive S1, S2. No murmurs, rubs, or gallops appreciated. ABDOMEN: Soft, nondistended, and nontender to palpation. Bowel sounds present. MUSCULOSKELETAL: Strength is 5/5 throughout. No evidence of any muscle deficits on examination. No weakness appreciated. NEUROLOGIC: Cranial nerves II through XII grossly intact. No evidence of any neurological deficits on exam. SKIN: Intact, warm to touch. Good cap refill. PSYCHIATRIC: Normal affect and mood. EXTREMITIES: No edema. Good range of motion throughout. LABORATORY DATA: Labs show white count 7.7, hemoglobin 10, hematocrit is 28, platelets of 93. Chemistry; sodium 125, potassium is 3.8, chloride 97, bicarb 18, anion gap of 13, BUN 40, creatinine is 2, glucose is 93, calcium is 8.4 ratio is 47%, folate 16, vitamin B12 1187. IMPRESSION: 1. Hepatorenal syndrome type 2. 2. Alcoholic liver cirrhosis. 3. Acute kidney injury secondary to prerenal azotemia from dehydration with probable ATN as well as hepatorenal syndrome type 2. 4. Metabolic acidosis, improving. 5. Hyperkalemia, resolved. 6. Hyponatremia. PLAN: At this time, her hyponatremia is likely to be chronic from underlying hepatorenal syndrome. We will continue with oral midodrine to maintain elevated blood pressure. We will give Lasix 40 mg IV x1, 2 g of sodium chloride tabs p.o. x1. Get a.m. labs and monitor closely. Creatinine is down trending appropriately. Hopefully will go back to normal, at this time is slowly downtrending. The rest of electrolytes are stable. We will continue to follow with the primary team. MD JIMMY Lovelace/TERESA /[id number]
--- NOTE | 2019-03-18 19:05 | NUR ---
Resting in bed, son at bedside, side rails upx2, call light within reach, bed alarm on. AAOX3 to time, person, place. Respirations even and unlabored.
--- NOTE | 2019-03-18 22:08 | NUR ---
DAMIAN VELA OF DR GARIBAY IN UNIT.NOTIFIED DAMIAN VELA THAT PT NOTED TO BE SPOTTING SMALL AMOUNT OF BLOOD,AND ALSO NOTIFIED THAT PT STATED "I SPOT ALL THE TIME". NO NEW ORDERS RECEIVED.
[2019-03-19] VITALS (8 sets, daily range): BP systolic 98–109; BP diastolic 52–65
[2019-03-19] MEDS: METOCLOPRAMIDE HCL 10 MG/2ML VIAL IV SCH ×4 (00:10→18:22)
[2019-03-19] MEDS: OCTREOTIDE ACETATE 0.1 MG/ML 100MCG AMP SQ SCH ×3 (02:55→19:46)
[2019-03-19 03:38] LABS: BASOPHILS % 0.1 % (0.0-1.0); EOSINOPHILS # (AUTO) 0.2 (0.0-0.4); EOSINOPHILS % 2.5 % (0.0-6.0); HEMATOCRIT 27.4 % (34.2-44.1); HEMOGLOBIN 9.5 g/dL (12.0-16.0); LYMPHOCYTES # (AUTO) 1.6 (1.0-3.2); LYMPHOCYTES % 22.9 % (18.0-39.1); MEAN CORPUSCULAR HEMOGLOBIN 35.6 pg (28-32); MEAN CORPUSCULAR HGB CONC 34.7 g/dL (31-35); MEAN CORPUSCULAR VOLUME 102.6 fL (81-99); MONOCYTES # (AUTO) 1.2 (0.2-0.8); MONOCYTES % 17.4 % (4.4-11.3); NEUTROPHILS % 56.8 % (38.7-80.0); PLATELET COUNT 93 x10e3/uL (140-360); RED BLOOD COUNT 2.67 x10e6/uL (3.6-5.1); RED CELL DISTRIBUTION WIDTH 17.9 % (11.7-14.4)
[2019-03-19 03:56] LABS: ANION GAP 11.3 mmol/L (8-16); CREATININE, SERUM 2.04 mg/dL (0.57-1.11); PHOSPHORUS 3.1 MG/DL (2.3-4.7); POTASSIUM 3.3 mmol/L (3.5-5.1)
[2019-03-19] MEDS: PANTOPRAZOLE 40 MG 10ML VIAL IV SCH ×2 (05:15→17:40)
[2019-03-19] MEDS: CEFTRIAXONE SOD 1 GM/NS 50 ML 50 ML IV SCH (05:18)
[2019-03-19 05:43] LABS: MAGNESIUM 1.9 MG/DL (1.3-2.1)
[2019-03-19] MEDS: SODIUM CHLORIDE 0.9% 1000ML 1,000 ML IV SCH (06:36)
--- NOTE | 2019-03-19 07:29 | NUR ---
PATIENT IN BED RESTING WITH NO RESPIRATORY DISTRESS. DENIED PAIN AT THIS TIME. BED IN LOWER POSITION, CALL LIGHT AT REACH.
--- NOTE | 2019-03-19 07:30 | NUR ---
REPORT GIVEN TO ONCOMING NURSE.WALKING ROUNDS MADE.PT RESTING IN BED WITH NO S/S OF DISTRESS.
[2019-03-19] MEDS: MIDODRINE HCL 5 MG TABLET PO SCH ×3 (09:23→17:40)
[2019-03-19] MEDS: RIFAXIMIN 550 MG TABLET PO SCH ×2 (09:23→17:40)
[2019-03-19] MEDS: MEGESTROL ACETATE 40 MG TAB PO SCH ×2 (09:23→17:40)
--- NOTE | 2019-03-19 11:04 | NUR ---
SPOKE WITH DR GARIBAY'S WOODEN FENCE ERECTOR REGARDING ABNORMAL LAB RESULT, NEW ORDER RECEIVED.
[2019-03-19] MEDS ORDERED: POTASSIUM CHLORIDE 10MEQ EA PO ONE (11:30)
[2019-03-19] MEDS ORDERED: POTASSIUM CHLORIDE 20 MEQ TAB CR PO ONE (11:30)
--- NOTE | 2019-03-19 11:35 | NUR ---
Received order for rolling walker. Spoke to pt at bedside. Pt is agreeable to send referral to any company that takes her insurance. Choice letter signed for [employer] and [employer]. Signed copy placed in chart. Copy to pt. Referral faxed to [employer]. Rose Kc with [employer] was notified of referral.
--- NOTE | 2019-03-19 13:09 | Progress Note ---
DATE: 03/19/2019 Nephrology Progress Note SUBJECTIVE: The patient is doing well today with no complaints. No overnight events. OBJECTIVE: VITAL SIGNS: Temperature 98.8, pulse 66, respiratory rate is 18, blood pressure 109/65, pulse ox 98% on room air. GENERAL: Not in acute distress. Alert and oriented x3. Cooperative on examination. HEENT: Head; normocephalic, atraumatic. Eyes; pupils are equal, round, and reactive to light bilaterally. Extraocular movements intact bilaterally. Throat; no evidence of erythema or exudates in the posterior pharynx. Has poor dentition. NECK: Supple. Good range of motion. PULMONARY: Clear to auscultation bilaterally. No wheezing, no rales, no rhonchi, no crackles appreciated. CARDIOVASCULAR: Positive S1 and S2. No murmurs, rubs, or gallops appreciated. ABDOMEN: Soft, nondistended, and nontender to palpation. Bowel sounds present. MUSCULOSKELETAL: Strength is 5/5 throughout. No evidence of any muscle deficits on examination. No weakness appreciated. NEUROLOGIC: Cranial nerve II through XII grossly intact. No evidence of any neurological deficits on exam. SKIN: Intact. Warm to touch. Good cap refill. PSYCHIATRIC: Normal affect and mood. EXTREMITIES: No edema. Good range of motion throughout. LABORATORY DATA: Labs show white count 7.1, hemoglobin 9.5, hematocrit is 27, and platelets of 93. Coagulation; PT 16, INR 1.3, PTT 34. Chemistry; sodium 128, potassium 3.3, chloride 103, bicarb 18, anion gap 11, BUN 39, creatinine is 2.04, calcium is 8. IMPRESSION: 1. Hepatorenal syndrome type 2. 2. Alcoholic liver cirrhosis. 3. Acute kidney injury secondary to prerenal azotemia from dehydration/probable ATN and also underlying hepatorenal syndrome type 2, likely creatinine at baseline. 4. Metabolic acidosis, improving. 5. Hyperkalemia, resolved. 6. Hyponatremia, chronic. PLAN: At this time, hyponatremia is likely secondary to hepatorenal syndrome. Sodium is 128. Rest of electrolytes are stable. We will continue with the same plan of care. Replace potassium. Get a.m. labs. I feel that maybe her creatinine is now at baseline due to worsening hepatorenal syndrome. We will continue with oral midodrine, which is very important and the patient will be discharged on midodrine as well. MD JIMMY Lovelace/TERESA /[id number]
--- NOTE | 2019-03-19 14:55 | NUR ---
Spoke with Linda with [facility]. She states they will have walker delivered to pt's room tomorrow.
--- NOTE | 2019-03-19 16:28 | NUR ---
PATIENT ASSISTED TO BED SIDE COMMODE AND BACK TO BED. HAD A LARGE BM, STOOL SPECIMEN COLLECTED AND SENT TO LAB. IN BED WITH CALL LIGHT AT REACH.
--- NOTE | 2019-03-19 16:55 | NUR ---
Nutrition Intervention Note RD Recommendation(s) for Physician: The patient meets criteria for chronic illness related MODERATE protein-calorie malnutrition. -Continue renal diet as order diet to be liberalized by MD if appropriate -Rec Nepro BID to increase protein-calorie intake -Rec renal MVi w/minerals for hx of alcoholism -3-day calorie count was started (03/18 03/20) -Continue Megace to stimulate appetite -If PO continues to be <50%, rec intiating EN with 3 bolus feedings of 1 can Nepro every 4hr, providing 1275kcal, 57g protein, 517mL water; 50mL water flushes before/ after each feeding -Check daily labs, weight and gastric tolerance Plan of Care: RD following, monitoring for tolerance and adequacy Nutrition reason for involvement: MD consult [address] Assessment: 73yo F, who was admitted for nausea and vomiting. Pt was well known to me from her previous admissions. Pt with hx of chronic alcoholic liver cirrhosis and medical non-compliance. Currently on liver transplant list. Last alcohol intake was 3 months ago. Visited pt in the room. Pt reported of poor appetite. Pt was asking for salt with her meals. Pt stated I cant eat without salt. Diet education was given in the past but pt was not compliant with diet. Pt ate ~25-50% of meals, per PCT. No GI complains reported. Pt was started on Megace but didnt seem to be helping with her appetite. Nepro has been ordered. Discussed needs of EN if her appetite continues to be poor. Communicated with PCT and RN regarding calorie count. Will continue to monitor and follow. Principal Problems/Diagnoses: 1. Hepatorenal syndrome type 2. 2. Alcoholic liver cirrhosis. 3. Acute kidney injury secondary to prerenal azotemia 4. Metabolic acidosis PMH: Alcoholic liver cirrhosis, chronic alcoholic, acid reflux GI: abdomen round, distended, flatus present Skin: No pressure ulcer noted Labs: (03/19) Na 128 L, K 3.3 L, BUN 39 H, Creatinine 2.04 H, Ca 8.0 L Meds: reglan, megace, protonix Ht: 59in Wt: 128lb BMI: 25.9kg/m2 IBW: 98lb +/- 10% Malnutrition Evaluation (03/19/2019) The patient meets criteria for chronic illness related MODERATE protein-calorie malnutrition. Energy intake: <50% of estimated energy requirements for >5 days Weight loss: Unable to evaluate due to ascites Fat loss: Moderate hollow look around orbital region Muscle loss: Moderate clavicle protrusion Supporting Evidence: Fluid accumulation: Moderate ascites Functional Status: no changes Nutrition Prescription (Diet Order): renal diet w Nepro BID Estimated Nutritional Needs: Calories: 1350 1575kcal(30-35kcal/kg/d) Weight used: IBW Protein: 45 68g(1-1.5g/kg/d) Weight used: IBW Diet Adequacy: Not meeting calorie needs, Not meeting protein needs Diet Education Needs Assessment: Diet education indicated, but patient declined. last diet education was on 12/12/2018 Nutrition Care Level: mod Nutrition Diagnosis: Moderate malnutrition related to inadequate oral intake as evidenced by reported poor appetite, moderate fat/ muscle loss, and hx of alcoholic liver cirrhosis. Goal: Patient will meet 75-100% of estimated needs by follow up Progress: Not Progressing Interventions: Modified diet, Commercial beverage, Prescription medications, Multivitamin/mineral supplement therapy Monitoring/Evaluation: Total energy intake, Total protein intake, Prescription medication, Modified diet, Liquid supplement, Weight change Signed: Savannah Recinos, MS, RD, LD
[2019-03-20] VITALS (9 sets, daily range): BP systolic 110–141; BP diastolic 55–73
[2019-03-20] MEDS ORDERED: PHYTONADIONE 10 MG/ML AMP SQ ONE (00:15)
[2019-03-20] MEDS: SODIUM CHLORIDE 0.9% 1000ML 1,000 ML IV SCH ×3 (00:25→20:12)
[2019-03-20] MEDS: METOCLOPRAMIDE HCL 10 MG/2ML VIAL IV SCH ×4 (00:25→17:50)
[2019-03-20] MEDS: OCTREOTIDE ACETATE 0.1 MG/ML 100MCG AMP SQ SCH ×3 (03:21→20:11)
[2019-03-20] MEDS: CEFTRIAXONE SOD 1 GM/NS 50 ML 50 ML IV SCH (03:21)
[2019-03-20 03:41] LABS: BASOPHILS % 0.4 % (0.0-1.0); EOSINOPHILS # (AUTO) 0.2 (0.0-0.4); EOSINOPHILS % 2.7 % (0.0-6.0); HEMATOCRIT 28.4 % (34.2-44.1); HEMOGLOBIN 9.9 g/dL (12.0-16.0); LYMPHOCYTES # (AUTO) 2.2 (1.0-3.2); LYMPHOCYTES % 29.1 % (18.0-39.1); MEAN CORPUSCULAR HEMOGLOBIN 35.7 pg (28-32); MEAN CORPUSCULAR HGB CONC 34.9 g/dL (31-35); MEAN CORPUSCULAR VOLUME 102.5 fL (81-99); MONOCYTES # (AUTO) 1.4 (0.2-0.8); MONOCYTES % 17.7 % (4.4-11.3); NEUTROPHILS # (AUTO) 3.8 (2.1-6.9); NEUTROPHILS % 49.8 % (38.7-80.0); PLATELET COUNT 102 x10e3/uL (140-360); RED BLOOD COUNT 2.77 x10e6/uL (3.6-5.1); RED CELL DISTRIBUTION WIDTH 17.6 % (11.7-14.4)
[2019-03-20 04:00] LABS: ANION GAP 13.8 mmol/L (8-16); CREATININE, SERUM 1.5 mg/dL (0.57-1.11); MAGNESIUM 1.9 MG/DL (1.3-2.1); POTASSIUM 3.8 mmol/L (3.5-5.1)
[2019-03-20] MEDS: PANTOPRAZOLE 40 MG 10ML VIAL IV SCH ×2 (04:28→17:50)
--- NOTE | 2019-03-20 06:39 | NUR ---
Received order to d/c tele by Dr. Peterson.
[2019-03-20] MEDS: MEGESTROL ACETATE 40 MG TAB PO SCH ×2 (08:55→17:50)
[2019-03-20] MEDS: MIDODRINE HCL 5 MG TABLET PO SCH ×3 (08:55→17:50)
[2019-03-20] MEDS: RIFAXIMIN 550 MG TABLET PO SCH ×2 (08:55→17:50)
--- NOTE | 2019-03-20 11:21 | NUR ---
EDUCATED ABOUT IMM SIGNED FILED IN CHART AND LEFT COPY WITH PT BEDSIDE WITH CARD FOR ANY FURTHER QUESTIONS
--- NOTE | 2019-03-20 12:20 | Progress Note ---
DATE: 03/20/2019 Nephrology Progress Note SUBJECTIVE: The patient is doing well today. She is sitting on the edge of the bed, eating her lunch. Had no complaints. No overnight events. PHYSICAL EXAMINATION: VITAL SIGNS: Temperature 97.4, pulse 66, respiratory rate 18, blood pressure 114/55, pulse ox 98% on room air. GENERAL: Not in acute distress. Alert and oriented x3. Cooperative on examination. HEENT: Head; normocephalic, atraumatic. Eyes; pupils are equal, round, and reactive to light bilaterally. Extraocular movements intact bilaterally. Throat; no evidence of erythema or exudates in the posterior pharynx. Has poor dentition. NECK: Supple. Good range of motion. PULMONARY: Clear to auscultation bilaterally. No wheezing, no rales, no rhonchi, no crackles appreciated. CARDIOVASCULAR: Positive S1 and S2. No murmurs, rubs, or gallops appreciated. ABDOMEN: Soft, nondistended, and nontender to palpation. Bowel sounds present. MUSCULOSKELETAL: Strength is 5/5 throughout. No evidence of any muscle deficits on examination. No weakness appreciated. NEUROLOGIC: Cranial nerve II through XII grossly intact. No evidence of any neurological deficits on exam. SKIN: Intact. Warm to touch. Good cap refill. PSYCHIATRIC: Normal affect and mood. EXTREMITIES: No edema. Good range of motion throughout. LABORATORY DATA: Show white count 7.7, hemoglobin 9.9, hematocrit is 28, platelets of 102. Chemistry; sodium 131, potassium 3.8, chloride 106, bicarbonate 15, anion gap of 13, BUN is 33, creatinine is 1.5, magnesium 1.9. IMPRESSION: 1. Hepatorenal syndrome, type 2. 2. Alcoholic liver cirrhosis. 3. Acute kidney injury secondary to prerenal azotemia from dehydration, probable acute tubular necrosis, now improving. 4. Metabolic acidosis. 5. Hyperkalemia, resolved. 6. Hyponatremia, improving, likely to be chronic. PLAN: At this time, her sodium is likely due to hepatorenal syndrome, but improved from yesterday. Her creatinine is down trending to 1.5. Get a.m. labs. Put on sodium bicarbonate tablets as well. Her acidosis is from liver cirrhosis, which is a very common finding in these patients. Continue with oral midodrine to maintain elevated blood pressure. From a renal standpoint, we will get a.m. labs and monitor closely. MD JIMMY Lovelace/TERESA /[id number]
[2019-03-20] MEDS: LEVOFLOXACIN 500MG/D5W 100ML 100 ML IV SCH (15:30)
[2019-03-20] MEDS: SODIUM BICARBONATE 650 MG TAB PO SCH (17:50)
--- NOTE | 2019-03-20 19:31 | NUR ---
WALKING ROUNDS MADE, PATIENT OBSERVED AMBULATING IN THE [place]. NO ACUTE DISTRESS OBSERVED, SHE STATED "I NEED TO TAKE A WALK OUTSIDE FOR A MINUTE." Addendum: 03/20/19 at 1933 by Elizabeth Solomon RN WRONG PATIENT.
--- NOTE | 2019-03-20 19:35 | NUR ---
Patient received lying in bed. AAO x 3. Patient had no complaints of pain. Respirations even and non-labored. IVF infusing at 65 cc /hr. Right arm edematous/erythematous; elevated with a pillow. Fall precautions implemented. Patient instructed to call for assistance when needed. Call light within reach.
[2019-03-21] VITALS (7 sets, daily range): BP systolic 99–120; BP diastolic 58–68
[2019-03-21] MEDS: METOCLOPRAMIDE HCL 10 MG/2ML VIAL IV SCH ×5 (00:51→23:51)
--- NOTE | 2019-03-21 01:21 | NUR ---
Patient informed of upcoming diagnostic procedure---EGD and "NPO" status after breakfast. Patient verbalized understanding. Patient voluntarily signed "Disclosure and Consent " form.
[2019-03-21] MEDS: OCTREOTIDE ACETATE 0.1 MG/ML 100MCG AMP SQ SCH ×3 (02:35→19:57)
[2019-03-21 03:19] LABS: BASOPHILS % 0.3 % (0.0-1.0); EOSINOPHILS # (AUTO) 0.2 (0.0-0.4); EOSINOPHILS % 2.7 % (0.0-6.0); HEMATOCRIT 27.8 % (34.2-44.1); HEMOGLOBIN 9.9 g/dL (12.0-16.0); LYMPHOCYTES # (AUTO) 1.7 (1.0-3.2); LYMPHOCYTES % 25.5 % (18.0-39.1); MEAN CORPUSCULAR HEMOGLOBIN 36.7 pg (28-32); MEAN CORPUSCULAR HGB CONC 35.6 g/dL (31-35); MONOCYTES # (AUTO) 1.3 (0.2-0.8); MONOCYTES % 19.2 % (4.4-11.3); NEUTROPHILS # (AUTO) 3.4 (2.1-6.9); NEUTROPHILS % 51.5 % (38.7-80.0); PLATELET COUNT 92 x10e3/uL (140-360); RED CELL DISTRIBUTION WIDTH 17.7 % (11.7-14.4)
--- NOTE | 2019-03-21 03:20 | NUR ---
Blood specimen sent to lab for analysis
[2019-03-21 03:34] LABS: ANION GAP 11.5 mmol/L (8-16); CREATININE, SERUM 1.23 mg/dL (0.57-1.11); POTASSIUM 3.5 mmol/L (3.5-5.1)
[2019-03-21] MEDS: SODIUM CHLORIDE 0.9% 1000ML 1,000 ML IV SCH ×2 (04:48→16:34)
[2019-03-21] MEDS: PANTOPRAZOLE 40 MG 10ML VIAL IV SCH ×2 (05:30→17:20)
[2019-03-21] MEDS ORDERED: ACETAMINOPHEN 325 MG TAB PO PRN (05:30)
--- NOTE | 2019-03-21 07:00 | NUR ---
Walking rounds done. Shift report given to oncoming nurse.
--- NOTE | 2019-03-21 07:05 | NUR ---
Received oncoming report from night coordinator nurse. pt in stable condition. will continue to monitor.
[2019-03-21] MEDS: MEGESTROL ACETATE 40 MG TAB PO SCH ×2 (08:25→17:20)
[2019-03-21] MEDS: SODIUM BICARBONATE 650 MG TAB PO SCH ×2 (08:25→17:20)
[2019-03-21] MEDS: MIDODRINE HCL 5 MG TABLET PO SCH ×3 (08:25→17:20)
[2019-03-21] MEDS: RIFAXIMIN 550 MG TABLET PO SCH ×2 (08:25→17:20)
--- NOTE | 2019-03-21 10:44 | Progress Note ---
DATE: 03/21/2019 Nephrology Progress Note SUBJECTIVE: The patient is doing well today with no complaints. No overnight events. From a renal standpoint, creatinine is improving tremendously. PHYSICAL EXAMINATION: VITAL SIGNS: Temperature 98.7, pulse 65, respiratory rate is 20, blood pressure is 99/61, pulse ox 96% on room air. GENERAL: Not in acute distress. Alert and oriented x3. Cooperative on examination. HEENT: Head; normocephalic, atraumatic. Eyes; pupils are equal, round, and reactive to light bilaterally. Extraocular movements intact bilaterally. Throat; no evidence of erythema or exudates in the posterior pharynx. Has poor dentition. NECK: Supple. Good range of motion. PULMONARY: Clear to auscultation bilaterally. No wheezing, no rales, no rhonchi, no crackles appreciated. CARDIOVASCULAR: Positive S1 and S2. No murmurs, rubs, or gallops appreciated. ABDOMEN: Soft, nondistended, and nontender to palpation. Bowel sounds present. MUSCULOSKELETAL: Strength is 5/5 throughout. No evidence of any muscle deficits on examination. No weakness appreciated. NEUROLOGIC: Cranial nerve II through XII grossly intact. No evidence of any neurological deficits on exam. SKIN: Intact. Warm to touch. Good cap refill. PSYCHIATRIC: Normal affect and mood. EXTREMITIES: No edema. Good range of motion throughout. LABORATORY FINDINGS: Show white count 6.5, hemoglobin 9.9, hematocrit 27.8, platelets of 92. Chemistry; sodium is 130, potassium 3.5, chloride 108, bicarbonate 14, anion gap of 11, BUN 29, creatinine is 1.23 down trending from 1.5, calcium is 8. Microbiology; urine culture noted to have enterococcus faecalis, being managed by primary team. IMPRESSION: 1. Hepatorenal syndrome, type 2. 2. Alcoholic liver cirrhosis. 3. Acute kidney injury secondary to prerenal azotemia from dehydration and possible acute tubular necrosis , now improving. 4. Metabolic acidosis from underlying liver cirrhosis. 5. Hyperkalemia, resolved. 6. Hyponatremia, chronic in nature due to underlying hepatorenal syndrome. PLAN: At this time, sodium is appropriate at baseline. Creatinine down trending to 1.2. Electrolytes are stable. The acidosis is from underlying liver cirrhosis, which is a common finding in these patients. Continue with sodium bicarbonate tabs. She must be discharged on oral midodrine upon discharge as her blood pressure still stays relatively low. Get a.m. labs and monitor very closely. MD JIMMY Lovelace/TERESA /[id number]
--- NOTE | 2019-03-21 13:57 | NUR ---
OR tech arrived at bedside. Pt being transported to OR for EGD procedure. Pt left in stable condition.
--- NOTE | 2019-03-21 15:46 | NUR ---
received report from recovery, pt arriving back to room 207 s/p EGD.
--- NOTE | 2019-03-21 16:20 | NUR ---
Collected 3 days calorie count: 03/18 Dinner: 100kcal 03/19 Breakfast: 213kcal 03/19 Lunch: 156kcal 03/19 Dinner: 368kcal Average of 700-800kcal intake by mouth, meeting 55% of estimated needs. Pt was NPO for EGD today. Tube feeding recommendation as below if pt was agreeable: Rec intiating EN with 2 bolus feedings/day of 1 can Nepro with 4hr apart, providing 850kcal, 38g protein, 344mL water; 50mL water flushes before/ after each feeding. Consult if needed. Signed by Savannah Recinos, MS, RD, LD
[2019-03-21] MEDS: LEVOFLOXACIN 500MG/D5W 100ML 100 ML IV SCH (16:34)
--- NOTE | 2019-03-21 17:07 | NUR ---
spoke with Dr. Riley's DIRECTOR OF ACQUISITION MARKETING, notified pt is positive for DVT, new orders received.
--- NOTE | 2019-03-21 18:06 | Operative Report ---
DATE OF PROCEDURE: 03/21/2019 SURGEON: Pj Lei MD PROCEDURE: Esophagogastroduodenoscopy with biopsies. INDICATIONS FOR EGD: Anemia, guaiac-positive stools, large amount of retained undigested food stuff in stomach on previous EGD. MEDICATIONS: The patient was done under MAC, please see anesthesiologist's note. PROCEDURE IN DETAIL: With the patient in left lateral decubitus position, flexible fiberoptic Olympus gastroscope was introduced into the esophagus under direct visualization without any difficulty. Grade 1 esophageal varices were noted without active bleeding or stigmata of recent hemorrhage. The scope was then advanced with ease into the stomach. Mucosa overlying the body revealed some patchy atrophic changes and biopsies were obtained. Mucosa overlying the antrum revealed changes compatible with portal hypertensive gastropathy. A minute ulcer was noted in the antrum without active bleeding or stigmata of recent hemorrhage and that was biopsied. The pylorus was intubated with ease and the scope was advanced all the way to the second portion of the duodenum. The scope was then withdrawn slowly, mucosa overlying the second portion and the duodenal bulb appeared to be within normal limits. The scope was then withdrawn back into the stomach and retroflexed, mucosa overlying the fundus and cardia grossly appeared to be within normal limits. There was no cardiac or fundal varices. The scope was then straightened out, it was subsequently withdrawn. The patient tolerated the procedure well. IMPRESSION: 1. Grade 1 esophageal varices without active bleeding or stigmata of recent hemorrhage. 2. Portal hypertensive gastropathy. 3. Gastric ulcer, antrum without active bleeding or stigmata of recent hemorrhage biopsied. PLAN: Follow up histology. Continue current therapy. Pj Lei MD [facility] [place]/MODL /[id number] cc: Rashard Riley MD
[2019-03-21] MEDS ORDERED: PROPOFOL IV EMULSION 10 MG/ML 50 ML VIAL ONE (19:07)
--- NOTE | 2019-03-21 19:11 | NUR ---
report given to oncoming flight control specialist RN, pt sleeping, in stable condition.
[2019-03-21] MEDS ORDERED: FENTANYL CITRATE/PF 100MCG/2 ML INJ ONE (19:38)
[2019-03-21] MEDS ORDERED: MIDAZOLAM HCL 2 MG/2 ML VIAL ONE (19:38)
[2019-03-22] VITALS (8 sets, daily range): BP systolic 86–112; BP diastolic 53–62
[2019-03-22] MEDS: OCTREOTIDE ACETATE 0.1 MG/ML 100MCG AMP SQ SCH ×3 (03:51→20:10)
[2019-03-22] MEDS ORDERED: ALBUMIN 25% 25GM 100ML 0.25 GM/ML BTL IV ONE ×2 (05:00)
[2019-03-22] MEDS: PANTOPRAZOLE 40 MG 10ML VIAL IV SCH ×2 (05:59→17:37)
[2019-03-22] MEDS: METOCLOPRAMIDE HCL 10 MG/2ML VIAL IV SCH ×3 (05:59→18:05)
--- NOTE | 2019-03-22 07:22 | NUR ---
PATIENT IN BED RESTING WITH EYES CLOSED, NO DISTRESS NOTED. SWELLING NOTED TO RIGHT ARM, ELEVATED ON PILLOW, ABDOMEN DISTENDED AND ROUND. BED IN LOWER POSITION, CALL LIGHT AT REACH.
[2019-03-22 07:38] LABS: BASOPHILS % 0.3 % (0.0-1.0); EOSINOPHILS # (AUTO) 0.2 (0.0-0.4); EOSINOPHILS % 2.9 % (0.0-6.0); HEMATOCRIT 26.6 % (34.2-44.1); HEMOGLOBIN 9.3 g/dL (12.0-16.0); LYMPHOCYTES # (AUTO) 2.1 (1.0-3.2); LYMPHOCYTES % 28.8 % (18.0-39.1); MEAN CORPUSCULAR HEMOGLOBIN 36.3 pg (28-32); MEAN CORPUSCULAR VOLUME 103.9 fL (81-99); MONOCYTES # (AUTO) 1.2 (0.2-0.8); MONOCYTES % 16.2 % (4.4-11.3); NEUTROPHILS # (AUTO) 3.7 (2.1-6.9); NEUTROPHILS % 51.2 % (38.7-80.0); PLATELET COUNT 88 x10e3/uL (140-360); RED BLOOD COUNT 2.56 x10e6/uL (3.6-5.1); RED CELL DISTRIBUTION WIDTH 17.9 % (11.7-14.4)
[2019-03-22 07:57] LABS: ANION GAP 13.8 mmol/L (8-16); CALCIUM 7.7 mg/dL (8.4-10.2); CREATININE, SERUM 1.24 mg/dL (0.57-1.11); POTASSIUM 3.8 mmol/L (3.5-5.1)
[2019-03-22] MEDS: MIDODRINE HCL 5 MG TABLET PO SCH ×3 (08:26→16:00)
[2019-03-22] MEDS ORDERED: SPIRONOLACTONE 25 MG TAB PO SCH (09:00)
[2019-03-22] MEDS: RIFAXIMIN 550 MG TABLET PO SCH ×2 (09:03→17:37)
[2019-03-22] MEDS: FUROSEMIDE 40 MG TAB PO SCH (09:03)
[2019-03-22] MEDS: SODIUM BICARBONATE 650 MG TAB PO SCH ×2 (09:03→17:37)
[2019-03-22] MEDS: MEGESTROL ACETATE 40 MG TAB PO SCH ×2 (09:03→17:37)
[2019-03-22] MEDS: SODIUM CHLORIDE 0.9% 1000ML 1,000 ML IV SCH (11:36)
--- NOTE | 2019-03-22 11:51 | NUR ---
PATIENT ASSISTED TO BED SIDE COMMODE AND BACK TO BED. HAD A LARGE BM. IN BED WITH IV FLUID INFUSING ORDERED. CALL LIGHT AT REACH.
--- NOTE | 2019-03-22 12:53 | NUR ---
EDUCATED ABOUT IMM, SIGNED, FILED IN CHART, WITH COPY LEFT WITH FAMILY AT BEDSIDE.
--- NOTE | 2019-03-22 13:10 | Progress Note ---
DATE: 03/22/2019 Nephrology Progress Note SUBJECTIVE: The patient is doing well today with no complaints. Hospital scheduled for paracentesis later today. OBJECTIVE: VITAL SIGNS: Temperature 98.5, pulse 72, respiratory rate 19, blood pressure is 86/53, and pulse ox 96% on room air. GENERAL: Not in acute distress, alert and oriented x3. Cooperative on examination. HEENT: Head is normocephalic and atraumatic. Eyes; pupils are equal, round, and reactive to light bilaterally. Extraocular movement was intact. Neck is supple, good range of motion. Throat, no evidence of erythema or exudates in the posterior pharynx. Has poor dentition. PULMONARY: Clear to auscultation bilaterally. No wheezing, rales, or rhonchi. No crackles appreciated. CARDIOVASCULAR: Positive S1, S2. No murmurs, rubs, or gallops appreciated. ABDOMEN: Soft, nondistended, nontender to palpation. Bowel sounds present. MUSCULOSKELETAL: Strength is 5/5 throughout. No evidence of any muscle deficits on examination. No weakness appreciated. NEURO: Cranial nerves II through XII are grossly intact. No evidence of any neurological deficits on exam. SKIN: Intact. Warm to touch. Good cap refill. PSYCHIATRIC: Normal affect and mood. EXTREMITIES: No edema. Good range of motion throughout. LABORATORY FINDINGS: Show white count 7.1, hemoglobin 9.3, hematocrit 26, and platelets of 88. Chemistry; sodium 134, potassium 3.8, chloride 111, bicarbonate is 13, BUN 31, creatinine is 1.24. MICROBIOLOGY: Noted. IMPRESSION: 1. Hepatorenal syndrome, type 2 with underlying alcoholic liver cirrhosis. 2. Acute kidney injury, secondary to acute tubular necrosis, now improved. 3. Metabolic acidosis, secondary to alcoholic liver cirrhosis. 4. Hyperkalemia, resolved. 5. Hyponatremia, chronic. PLAN: We will increase sodium bicarbonate tablets accordingly due to acidosis. Creatinine is likely at baseline. Continue same plan of care. Get a.m. labs. MD JIMMY Lovelace/MODL /[id number]
--- NOTE | 2019-03-22 14:53 | Diagnostic Imaging Report ---
PROCEDURE: Ultrasound-guided therapeutic paracentesis Procedural Personnel Attending physician(s): Darshan Gómez MD Pre-procedure diagnosis: Cirrhosis, ascites Post-procedure diagnosis: Same Indication: Ascites with pain or pressure symptoms Additional clinical history: None Complications: No immediate complications. IMPRESSION: Ultrasound-guided paracentesis with drainage of 3600 mL of cloudy fluid. Plan: Resume care by clinical team. PROCEDURE SUMMARY: - Limited abdominal ultrasound - Ultrasound-guided paracentesis - Additional procedure(s): None PROCEDURE DETAILS: Pre-procedure Consent: Informed consent for the procedure including risks, benefits and alternatives was obtained and time-out was performed prior to the procedure. Preparation: The site was prepared and draped using maximal sterile barrier technique including cutaneous antisepsis. Anesthesia/sedation Level of anesthesia/sedation: No sedation Anesthesia/sedation administered by: Not applicable Initial abdominal ultrasound Initial abdominal ultrasound was performed. Findings: Moderate ascites. A safe window for paracentesis was identified. Paracentesis Local anesthesia was administered. The peritoneal cavity was accessed and fluid return confirmed position. Ascites was drained. The catheter was then removed, and a sterile bandage was applied. Paracentesis access technique: Real-time ultrasound guidance Catheter placed: 5F [facility] Signed by: Darshan Gómez MD on 03/22/2019 2:49 PM
--- NOTE | 2019-03-22 15:09 | NUR ---
BEDSIDE PARACENTESIS COMPLETED. 3600ML OF FLUID REMOVED PER RADIOLOGY STAFF. DRESSING DRY AND INTACT TO RIGHT LOWER ABDOMEN. IV ANTIBIOTIC INFUSING ORDERED. BED IN LOWER POSITION AND LOCKED, CALL LIGHT AT REACH.
[2019-03-22] MEDS: LEVOFLOXACIN 500MG/D5W 100ML 100 ML IV SCH (15:41)
[2019-03-22] MEDS: ENOXAPARIN 30 MG/0.3 ML SYR SC SCH (17:37)
--- NOTE | 2019-03-22 19:10 | NUR ---
Received orders to change fluids to D5NS @ 65mls/hr by Dr. Carvajal.
[2019-03-22] MEDS ORDERED: DEXTROSE 5%/0.9% SOD CHL 1,000 ML IV SCH (20:00)
--- NOTE | 2019-03-22 20:03 | Progress Note ---
DATE: 03/22/2019 SUBJECTIVE: Ms. Briseno today is doing well. She is awake, alert, and oriented. She is tolerating her diet well. She had several bowel movements. She underwent paracentesis today, 3200 fluid removed. She is known to have ethanol liver disease, cirrhosis, noncompliance per medical record, and hepatorenal syndrome type 2. She had upper endoscopy by Dr. Lei yesterday. She had esophageal varices grade 1. No signs of bleeding, portal hypertension, gastropathy, and peptic ulcer disease. OBJECTIVE: VITAL SIGNS: Today, she is afebrile. Blood pressure 95/54. GENERAL: Awake, alert, and oriented. ABDOMEN: Soft and nontender. Bowel sounds present. ALLERGIES: SHE IS ALLERGIC TO NOTHING. CURRENT MEDICATIONS: Her current medications regimen: 1. Sodium bicarbonate. 2. Lovenox. 3. Protonix. 4. Xifaxan. 5. Megace. 6. Levofloxacin. 7. Simvastatin. 8. Lasix 50 mg. 9. Aldactone. 10. Lactulose. 11. Melatonin. 12. ProAmatine. 13. Zofran. DIAGNOSTIC DATA: She had CT scan without contrast shows cirrhosis, ascites, and portal hypertension. Ultrasound showed only ascites. LABORATORY DATA: Hemoglobin 9, hematocrit 26, platelet 88, and white blood cells 7. Iron saturation 47. Folate normal. B12 normal. BUN 31, creatinine 1.24, sodium 134, and potassium 3.8. AST 39, ALT normal, total bilirubin 4.4, and alkaline phosphatase normal. Urine culture show Enterococcus faecalis. PLAN: My plan is to increase her Aldactone to 100 mg a day, put on 2 g salt diet, sustain any normal saline in any of her IVs and we will continue to follow. I am covering for Dr. Lei until Monday. Jayce Carvajal MD RD/MODL /[id number]
[2019-03-23] VITALS (8 sets, daily range): BP systolic 85–131; BP diastolic 51–70
[2019-03-23] MEDS: METOCLOPRAMIDE HCL 10 MG/2ML VIAL IV SCH ×4 (00:41→17:33)
[2019-03-23] MEDS: OCTREOTIDE ACETATE 0.1 MG/ML 100MCG AMP SQ SCH ×3 (03:14→20:18)
[2019-03-23 05:30] LABS: BASOPHILS % 0.3 % (0.0-1.0); EOSINOPHILS # (AUTO) 0.2 (0.0-0.4); EOSINOPHILS % 3.1 % (0.0-6.0); HEMATOCRIT 26.8 % (34.2-44.1); HEMOGLOBIN 9.4 g/dL (12.0-16.0); LYMPHOCYTES # (AUTO) 1.5 (1.0-3.2); LYMPHOCYTES % 26.3 % (18.0-39.1); MEAN CORPUSCULAR HEMOGLOBIN 35.6 pg (28-32); MEAN CORPUSCULAR HGB CONC 35.1 g/dL (31-35); MEAN CORPUSCULAR VOLUME 101.5 fL (81-99); MONOCYTES # (AUTO) 1.1 (0.2-0.8); MONOCYTES % 19.6 % (4.4-11.3); NEUTROPHILS # (AUTO) 2.9 (2.1-6.9); NEUTROPHILS % 50.2 % (38.7-80.0); PLATELET COUNT 85 x10e3/uL (140-360); RED BLOOD COUNT 2.64 x10e6/uL (3.6-5.1); RED CELL DISTRIBUTION WIDTH 17.7 % (11.7-14.4)
[2019-03-23 05:49] LABS: ANION GAP 13.2 mmol/L (8-16); CALCIUM 7.6 mg/dL (8.4-10.2); CREATININE, SERUM 1.4 mg/dL (0.57-1.11); POTASSIUM 3.2 mmol/L (3.5-5.1)
[2019-03-23] MEDS: PANTOPRAZOLE 40 MG 10ML VIAL IV SCH ×2 (05:49→17:09)
[2019-03-23] MEDS: MELATONIN 5 MG TABLET PO PRN ×2 (06:36→23:06)
--- NOTE | 2019-03-23 07:20 | NUR ---
PATIENT IN BED RESTING WITH NO S/S OF DISTRESS. ALL PERSONAL ITEMS AT EASY REACH. BED IN LOWER POSITION, CALL LIGHT AT REACH, FAMILY MEMBER AT BED SIDE.
[2019-03-23] MEDS: FUROSEMIDE 40 MG TAB PO SCH (09:04)
[2019-03-23] MEDS: SODIUM BICARBONATE 650 MG TAB PO SCH ×2 (09:04→17:09)
[2019-03-23] MEDS: SPIRONOLACTONE 25 MG TAB PO SCH (09:04)
[2019-03-23] MEDS: MIDODRINE HCL 5 MG TABLET PO SCH ×3 (09:04→16:10)
[2019-03-23] MEDS: MEGESTROL ACETATE 40 MG TAB PO SCH ×2 (09:04→17:09)
[2019-03-23] MEDS: RIFAXIMIN 550 MG TABLET PO SCH ×2 (09:15→17:09)
--- NOTE | 2019-03-23 11:15 | NUR ---
SPOKE WITH DR GARIBAY'S EMERGENCY MEDICAL SERVICES COORDINATOR REGARDING ABNORMAL LAB, NO NEW ORDER RECEIVED.
[2019-03-23] MEDS ORDERED: POTASSIUM CHLORIDE 20 MEQ TAB CR PO NR ×2 (12:30→18:45)
--- NOTE | 2019-03-23 13:16 | NUR ---
pt refusing tx this am due to fatigue, f/u later 1110 Addendum: 03/23/19 at 1317 by Perry Gautam PTA Amended: Links added.
--- NOTE | 2019-03-23 15:21 | Progress Note ---
DATE: 03/23/2019 Nephrology Progress Note. SUBJECTIVE: The patient is doing well today. Has no other complaints. She does have a right cephalic vein thrombosis, being treated accordingly right now with warm compresses and some anticoagulation by the primary team. OBJECTIVE: VITAL SIGNS: Temperature is 99.3, pulse 73, respiratory rate is 18, blood pressure is 85/51, pulse ox 97% on room air. GENERAL: Not in acute distress, alert and oriented x3. Cooperative on examination. HEENT: Head is normocephalic and atraumatic. Eyes; pupils are equal, round, and reactive to light bilaterally. Extraocular movement was intact. Neck is supple, good range of motion. Throat, no evidence of erythema or exudates in the posterior pharynx. Has poor dentition. PULMONARY: Clear to auscultation bilaterally. No wheezing, rales, or rhonchi. No crackles appreciated. CARDIOVASCULAR: Positive S1, S2. No murmurs, rubs, or gallops appreciated. ABDOMEN: Soft, nondistended, nontender to palpation. Bowel sounds present. MUSCULOSKELETAL: Strength is 5/5 throughout. No evidence of any muscle deficits on examination. No weakness appreciated. NEURO: Cranial nerves II through XII are grossly intact. No evidence of any neurological deficits on exam. SKIN: Intact. Warm to touch. Good cap refill. PSYCHIATRIC: Normal affect and mood. EXTREMITIES: No edema. Good range of motion throughout. LABORATORY DATA: Show white count 5.7, hemoglobin 9.1, hematocrit 26.8, platelets of 85. Chemistries reviewed, sodium 137, potassium 3.2, chloride 113, bicarbonate 14, anion gap of 13, BUN is 30, creatinine 1.4, calcium 7.6. IMPRESSION: 1. Hepatorenal syndrome, type 2 with underlying alcoholic liver cirrhosis. 2. Acute kidney injury, secondary to acute tubular necrosis, now improved. 3. Metabolic acidosis, secondary to alcoholic liver cirrhosis. 4. Hyperkalemia, resolved. 5. Chronic hyponatremia. PLAN: At this time, replace electrolytes, potassium. Continue with sodium bicarbonate tabs. Creatinine and BUN are stable at baseline. Continue with same plan of care. Monitor closely. Get a.m. labs. JiMD JIMMY Cortez/MODL /[id number]
[2019-03-23] MEDS: LEVOFLOXACIN 500MG/D5W 100ML 100 ML IV SCH (15:23)
--- NOTE | 2019-03-23 16:21 | NUR ---
PATIENT AMBULATED TO ROOM WITH PHYSICAL THERAPY. BACK IN BED WITH CALL LIGHT AT REACH.
[2019-03-23] MEDS: ENOXAPARIN 30 MG/0.3 ML SYR SC SCH (17:09)
--- NOTE | 2019-03-23 17:17 | Progress Note ---
DATE: SUBJECTIVE: She is doing great, asymptomatic, sitting at the edge of her bed, comfortable. No GI complaints. She is tolerating her diet well. OBJECTIVE: GENERAL: She is awake, alert, oriented, had several bowel movements. VITAL SIGNS: Temperature 97, blood pressure 113/64, pulse 76. LABORATORY DATA: Recent lab tests BUN 30, creatinine 1.4. Sodium 137, potassium 3.2, her platelet 85. Hemoglobin 9.4, hematocrit 27, and white cell count 5.7. ASSESSMENT/PLAN: Nothing to add. I will continue current care. Jayce Carvajal MD RD/MODL /[id number]
[2019-03-24] VITALS (8 sets, daily range): BP systolic 97–109; BP diastolic 50–58
[2019-03-24] MEDS: METOCLOPRAMIDE HCL 10 MG/2ML VIAL IV SCH ×5 (00:27→23:34)
[2019-03-24] MEDS: PANTOPRAZOLE 40 MG 10ML VIAL IV SCH ×2 (03:45→16:53)
[2019-03-24] MEDS: OCTREOTIDE ACETATE 0.1 MG/ML 100MCG AMP SQ SCH ×3 (03:45→19:44)
--- NOTE | 2019-03-24 04:46 | NUR ---
Patient refused labs drawn at 3am.
--- NOTE | 2019-03-24 07:12 | NUR ---
PATIENT IN BED RESTING WITH HEAD OF BED ELEVATED, NO DISTRESS NOTED. DENIED PAIN AT THIS TIME. BED IN LOWER POSITION, CALL LIGHT AT REACH.
[2019-03-24] MEDS: MIDODRINE HCL 5 MG TABLET PO SCH ×3 (08:00→16:53)
[2019-03-24] MEDS: RIFAXIMIN 550 MG TABLET PO SCH ×2 (09:46→16:53)
[2019-03-24] MEDS: FUROSEMIDE 40 MG TAB PO SCH (09:46)
[2019-03-24] MEDS: MEGESTROL ACETATE 40 MG TAB PO SCH ×2 (09:46→16:53)
[2019-03-24] MEDS: SODIUM BICARBONATE 650 MG TAB PO SCH ×2 (09:46→16:53)
[2019-03-24] MEDS: SPIRONOLACTONE 25 MG TAB PO SCH (09:47)
[2019-03-24 12:08] LABS: BASOPHILS % 0.4 % (0.0-1.0); EOSINOPHILS # (AUTO) 0.2 (0.0-0.4); EOSINOPHILS % 2.7 % (0.0-6.0); HEMATOCRIT 28.6 % (34.2-44.1); HEMOGLOBIN 9.9 g/dL (12.0-16.0); LYMPHOCYTES # (AUTO) 1.8 (1.0-3.2); LYMPHOCYTES % 25.4 % (18.0-39.1); MEAN CORPUSCULAR HEMOGLOBIN 36.3 pg (28-32); MEAN CORPUSCULAR HGB CONC 34.6 g/dL (31-35); MEAN CORPUSCULAR VOLUME 104.8 fL (81-99); MONOCYTES # (AUTO) 1.3 (0.2-0.8); MONOCYTES % 18.8 % (4.4-11.3); NEUTROPHILS # (AUTO) 3.7 (2.1-6.9); NEUTROPHILS % 52.1 % (38.7-80.0); PLATELET COUNT 79 x10e3/uL (140-360); RED BLOOD COUNT 2.73 x10e6/uL (3.6-5.1); RED CELL DISTRIBUTION WIDTH 18.2 % (11.7-14.4)
[2019-03-24 12:20] LABS: CREATININE, SERUM 2.03 mg/dL (0.57-1.11)
[2019-03-24] MEDS ORDERED: ALBUTEROL/IPRATROPIUM 3 ML NEB NEB PRN (13:30)
--- NOTE | 2019-03-24 14:30 | NUR ---
Visit made by the Spiritual Care Department Pastoral Visitor, Rick Grider. PV provided pastoral presence, prayer, communion, hospitality, and supportive listening. Pastoral Visitor informed pt/family of the scope of [facility] and availability. QIAN UNDERWOOD Discharge Coordinator Spiritual Care Department O: [phone] Pager: [phone] ([phone] calling from)
--- NOTE | 2019-03-24 14:40 | Progress Note ---
DATE: 03/24/2019 Nephrology Progress Note SUBJECTIVE: The patient is doing well today with no other complaints. Her vital signs seem to be stable. PHYSICAL EXAMINATION: VITAL SIGNS: Temperature 98.1, pulse 66, respirations 18, blood pressure 97/57, and pulse ox 97% on room air. GENERAL: Not in acute distress. Alert and oriented x3. Cooperative on examination. HEENT: Head, normocephalic and atraumatic. Eyes; pupils are equal, round, and reactive to light bilaterally. Extraocular movements intact bilaterally. Throat, no evidence of erythema or exudates in the posterior pharynx. Has poor dentition. NECK: Supple. Good range of motion. PULMONARY: Clear to auscultation bilaterally. No wheezing, no rales, no rhonchi, and no crackles appreciated. CARDIOVASCULAR: Positive S1 and S2. No murmurs, rubs, or gallops appreciated. ABDOMEN: Soft, nondistended, and nontender to palpation. Bowel sounds present. MUSCULOSKELETAL: Strength is 5/5 throughout. No evidence of any muscle deficits on examination. No weakness appreciated. NEUROLOGIC: Cranial nerves II through XII grossly intact. No evidence of any neurological deficits on exam. SKIN: Intact. Warm to touch. Good cap refill. PSYCHIATRIC: Normal affect and mood. EXTREMITIES: No edema. Good range of motion throughout. LAB FINDINGS: Show white count is 5.7, hemoglobin is 9.4, hematocrit is 26.8, and platelets of 85. Chemistry; sodium 137, potassium 3.2, chloride 113, bicarb 14, anion gap of 13, BUN is 30, and creatinine is 1.4. These are labs from yesterday, none today. IMPRESSION: 1. Hepatorenal syndrome type 2 secondary to underlying alcoholic liver cirrhosis. 2. Acute kidney injury secondary to acute tubular necrosis, now improved. 3. Metabolic acidosis secondary to alcoholic liver cirrhosis. 4. Hyperkalemia, resolved. 5. Chronic hyponatremia, improved. PLAN: At this time, there are no labs today for me to compare. We will get a.m. labs. Continue with sodium bicarbonate tabs. Monitor creatinine and BUN. Her acidosis is chronic and this is typical in patients with liver cirrhosis. Otherwise, we will continue with same plan of care and monitor closely. MD JIMMY Lovelace/KATELINL /[id number]
[2019-03-24] MEDS: LEVOFLOXACIN 500MG/D5W 100ML 100 ML IV SCH (15:19)
[2019-03-24] MEDS: ENOXAPARIN 30 MG/0.3 ML SYR SC SCH (16:53)
[2019-03-25] VITALS (9 sets, daily range): BP systolic 88–108; BP diastolic 49–64
[2019-03-25] MEDS: OCTREOTIDE ACETATE 0.1 MG/ML 100MCG AMP SQ SCH ×3 (02:25→20:56)
[2019-03-25 03:39] LABS: BASOPHILS # (AUTO) 0.1 (0.0-0.1); BASOPHILS % 0.6 % (0.0-1.0); EOSINOPHILS # (AUTO) 0.2 (0.0-0.4); EOSINOPHILS % 1.9 % (0.0-6.0); HEMOGLOBIN 9.5 g/dL (12.0-16.0); LYMPHOCYTES # (AUTO) 2.4 (1.0-3.2); LYMPHOCYTES % 30.1 % (18.0-39.1); MEAN CORPUSCULAR HEMOGLOBIN 35.8 pg (28-32); MEAN CORPUSCULAR HGB CONC 35.2 g/dL (31-35); MEAN CORPUSCULAR VOLUME 101.9 fL (81-99); MONOCYTES # (AUTO) 1.3 (0.2-0.8); MONOCYTES % 16.9 % (4.4-11.3); NEUTROPHILS # (AUTO) 3.9 (2.1-6.9); NEUTROPHILS % 49.7 % (38.7-80.0); PLATELET COUNT 91 x10e3/uL (140-360); RED BLOOD COUNT 2.65 x10e6/uL (3.6-5.1); RED CELL DISTRIBUTION WIDTH 17.8 % (11.7-14.4)
[2019-03-25 04:01] LABS: ALBUMIN 2.4 g/dL (3.5-5.0); ALBUMIN/GLOBULIN RATIO 0.8 (0.8-2.0); ANION GAP 16.4 mmol/L (8-16); CALCIUM 8.1 mg/dL (8.4-10.2); CREATININE, SERUM 2.49 mg/dL (0.57-1.11); MAGNESIUM 1.4 MG/DL (1.3-2.1); POTASSIUM 4.4 mmol/L (3.5-5.1)
[2019-03-25] MEDS: METOCLOPRAMIDE HCL 10 MG/2ML VIAL IV SCH ×4 (04:25→23:22)
[2019-03-25] MEDS: PANTOPRAZOLE 40 MG 10ML VIAL IV SCH ×2 (04:25→17:01)
[2019-03-25 06:31] LABS: LYMPHOCYTES % (MANUAL) 31 % (19-48); MONOCYTES % (MANUAL) 17 % (3.4-9.0); NEUTROPHILS % (MANUAL) 52 % (40-74); PLATELET ESTIMATE MARKEDLY DECREASED
[2019-03-25 06:32] LABS: RBC MORPHOLOGY COMMENT NORMAL
[2019-03-25] MEDS: SPIRONOLACTONE 25 MG TAB PO SCH (09:00)
[2019-03-25] MEDS: FUROSEMIDE 40 MG TAB PO SCH (09:00)
[2019-03-25] MEDS: MEGESTROL ACETATE 40 MG TAB PO SCH ×2 (09:40→17:01)
[2019-03-25] MEDS: SODIUM BICARBONATE 650 MG TAB PO SCH ×2 (09:40→17:01)
[2019-03-25] MEDS: MIDODRINE HCL 5 MG TABLET PO SCH ×3 (09:40→17:01)
--- NOTE | 2019-03-25 09:42 | NUR ---
EDUCATED ABOUT IMM, SIGNED, FILED IN CHART, WITH COPY LEFT WITH FAMILY AT BEDSIDE.
--- NOTE | 2019-03-25 13:35 | Consultation ---
DATE OF CONSULTATION: 03/25/2019 Urology Consultation REASON FOR CONSULTATION: Urinary retention. HISTORY OF PRESENT ILLNESS: Margarita Briseno is a 73-year-old woman, who has never seen urologist. She denies previous hematuria, dysuria, urinary tract infections, or urolithiasis. The patient was admitted with multiple medical problems. Her initial admission is for abdominal pain, cirrhosis, hyperkalemia, and hyponatremia. The patient developed deep vein thrombosis. She has cirrhosis. She developed some renal insufficiency. Betancourt catheter was placed, revealing a postvoid residual and urinary retention for 500 mL. Urological consultation was subsequently sought. The patient has never had any urological surgery. PAST MEDICAL AND SURGICAL HISTORY: 1. Cirrhosis. 2. Recurrent paracenteses. 3. Hypertension. 4. Hyperlipidemia. 5. Gastroesophageal reflux disease. 6. Chronic renal insufficiency. 7. Alcoholic cirrhosis. 8. Status post bilateral tubal ligation. 9. Status post breast biopsy. 10. History of kidney stones according to the chart. 11. Status post total abdominal hysterectomy without salpingo-oophorectomy. 12. 5, para 5, by spontaneous vaginal delivery. ALLERGIES: NONE KNOWN. CURRENT MEDICATIONS: Please refer the MAR. FAMILY HISTORY: Noncontributory to the active urological problems. SOCIAL HISTORY: The patient denies smoking, ethanol, or drug use. 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 REVIEW OF SYSTEMS: Discussed as above in the history of present illness and past medical history, otherwise negative for all systems. PHYSICAL EXAMINATION: GENERAL: Chronically ill-appearing 73-year-old woman, lying in bed, in no apparent distress. VITAL SIGNS: She is currently afebrile. Vital signs are currently stable. ABDOMEN: Full and distended, but is nontender. GENITOURINARY: The Betancourt catheter in place, draining clear urine out. Internal examination is deferred. Nurse accompanied me on this examination. For the remaining physical examination systems, please refer to the admission history and physical in the chart. LABORATORY STUDIES: Urine culture revealed Enterococcus urinary tract infection. White blood cell count is 7,800, hemoglobin 9.5, and platelets 91,000. The patient's creatinine is 2.49; which is progressively increased from 1.4 two days ago. The patient's calcium was low at 8.1. Her sodium was low at 134. Upon admission, she had hyperkalemia and acute renal failure with a creatinine of 3.2. CT scan of the abdomen and pelvis, review was negative. CT scan of the abdomen and pelvis was negative for any urological abnormalities. Prior CT showed punctate stones and gallstone was noted. ASSESSMENT: 1. Urinary retention for 500 mL. 2. Betancourt catheter in situ. 3. Urinary tract infection. 4. Anemia. 5. Thrombocytopenia. 6. [id number] renal insufficiency. 7. Hyponatremia. 8. Hyperkalemia, that improved. 9. History of nephrolithiasis. 10. Cholecystolithiasis. PLAN: 1. Leave Betancourt catheter in place at present time to continue multidisciplinary care. 2. I defer the hematological and electrolyte abnormalities to the Renal Service as well as admitting physician. 3. The patient will need to follow up for urodynamics test. Once she is an outpatient, I will plan on her going home with a Betancourt catheter in place. Thank you much for involving us in care of your patient. We will be happy to follow along with you as well as an outpatient. MD CHEY Henry/TERESA /[id number]
--- NOTE | 2019-03-25 16:36 | Progress Note ---
DATE: 03/25/2019 SUBJECTIVE: Ms. Briseno from GI standpoint she is stable. No major change. Awake, alert, and oriented. No GI complaint. OBJECTIVE: ABDOMEN: Lower abdomen is soft, minimally distended. EXTREMITIES: She still have about 1+ to 2+ pedal edema. VITAL SIGNS: Temperature 97, blood pressure 104/50. LABORATORY DATA: Hemoglobin 9.5, hematocrit 27, white cell count 7.8, and platelets 91. Sodium and potassium are normal. However, her kidney function did worsen today, BUN 30, creatinine 2.49. Nephrology is on her case. We made the recommendation regarding her kidney dysfunction to Nephrology. Nothing to add from GI standpoint. Of course with her cirrhosis, she has a poor prognosis. Dr. Quique Bah will be back to see the patient from now and on. Jayce Carvajal MD RD/MODL /[id number]
[2019-03-25] MEDS: ENOXAPARIN 30 MG/0.3 ML SYR SC SCH (17:01)
[2019-03-26] VITALS (7 sets, daily range): BP systolic 93–115; BP diastolic 44–58
--- NOTE | 2019-03-26 02:00 | NUR ---
Pt resting in bed. Pt son, Pablo at bedside. Pt son would like update from Dr. Garza and Dr. Bishop tomorrow.
[2019-03-26] MEDS: OCTREOTIDE ACETATE 0.1 MG/ML 100MCG AMP SQ SCH ×3 (03:00→20:43)
[2019-03-26 03:54] LABS: BASOPHILS % 0.3 % (0.0-1.0); EOSINOPHILS # (AUTO) 0.2 (0.0-0.4); HEMATOCRIT 27.8 % (34.2-44.1); HEMOGLOBIN 9.8 g/dL (12.0-16.0); LYMPHOCYTES # (AUTO) 2.6 (1.0-3.2); MEAN CORPUSCULAR HEMOGLOBIN 36.2 pg (28-32); MEAN CORPUSCULAR HGB CONC 35.3 g/dL (31-35); MEAN CORPUSCULAR VOLUME 102.6 fL (81-99); MONOCYTES # (AUTO) 1.1 (0.2-0.8); MONOCYTES % 13.7 % (4.4-11.3); NEUTROPHILS # (AUTO) 3.7 (2.1-6.9); NEUTROPHILS % 48.5 % (38.7-80.0); PLATELET COUNT 89 x10e3/uL (140-360); RED BLOOD COUNT 2.71 x10e6/uL (3.6-5.1)
[2019-03-26 04:12] LABS: ANION GAP 16.4 mmol/L (8-16); CREATININE, SERUM 2.69 mg/dL (0.57-1.11); POTASSIUM 4.4 mmol/L (3.5-5.1)
[2019-03-26] MEDS: PANTOPRAZOLE 40 MG 10ML VIAL IV SCH ×2 (04:58→17:21)
[2019-03-26] MEDS: METOCLOPRAMIDE HCL 10 MG/2ML VIAL IV SCH ×3 (05:50→17:21)
--- NOTE | 2019-03-26 07:10 | NUR ---
REPORT GIVEN TO THOMAS GARCÍA AT THIS TIME. PT RESTING IN BED COMFORTABLY. PT CALL LIGHT IS IN REACH.
[2019-03-26] MEDS ORDERED: SODIUM CHLORIDE 0.9% 1000ML 1,000 ML IV SCH (09:15)
--- NOTE | 2019-03-26 09:17 | NUR ---
Dr. Bishop notified of patient's worsening creatinine and other labs. New orders received.
[2019-03-26] MEDS: SODIUM BICARBONATE 650 MG TAB PO SCH ×2 (09:35→17:21)
[2019-03-26] MEDS: MEGESTROL ACETATE 40 MG TAB PO SCH ×2 (09:35→17:21)
[2019-03-26] MEDS: MIDODRINE HCL 5 MG TABLET PO SCH ×3 (09:35→17:21)
[2019-03-26] MEDS: PENICILLIN V POTASSIUM 500 MG TAB PO SCH ×4 (10:45→20:43)
--- NOTE | 2019-03-26 13:50 | Progress Note ---
DATE: 03/26/2019 Nephrology Progress Note SUBJECTIVE: The patient looks clinically dehydrated. Creatinine is elevated now. She is not eating much as well. All diuretics have been discontinued. She does have lower extremity edema as well. PHYSICAL EXAMINATION: VITAL SIGNS: Temperature is 97.4, pulse 69, respiratory rate is 16, blood pressure 115/58, pulse ox 98% on room air. GENERAL: Not in acute distress. Alert and oriented x3. Cooperative on examination. The patient has jaundice. HEENT: Head; normocephalic and atraumatic. Eyes; pupils are equal, round, and reactive to light bilaterally. Extraocular movements are intact bilaterally. Throat; no evidence of erythema or exudates in the posterior pharynx. Has poor dentition. NECK: Supple. Good range of motion. PULMONARY: Clear to auscultation bilaterally. No wheezing, no rales, no rhonchi, no crackles appreciated. CARDIOVASCULAR: Positive S1 and S2. No murmurs, rubs, or gallops appreciated. ABDOMEN: Soft, nondistended, and nontender to palpation. Bowel sounds present. MUSCULOSKELETAL: Strength is 5/5 throughout. No evidence of any muscle deficits on examination. No weakness appreciated. NEUROLOGIC: Cranial nerves II through XII grossly intact. No evidence of any neurological deficits on exam. SKIN: Intact. Warm to touch. Good cap refill. PSYCHIATRIC: Normal affect and mood. EXTREMITIES: Has 1 to 2+ pedal edema in lower extremities. LABORATORY DATA: Lab findings show white count 7.6, hemoglobin 9.9, hematocrit is 27, and platelets of 89. Coagulation; PT 16, INR 1.27, PTT 34. Chemistry; sodium 134, potassium 4.4, chloride 107, bicarb is 15, anion gap of 16, BUN is 42, creatinine is 2.69, which is slightly elevated over the last 2 days. Calcium is 8. Total bilirubin is 2.5. IMAGING STUDIES: None. IMPRESSION: 1. Hepatorenal syndrome type 2 secondary to underlying alcoholic liver cirrhosis. 2. Acute kidney injury secondary to hepatorenal syndrome type 2, now worsening renal function due to dehydration. 3. Metabolic acidosis secondary to alcoholic liver cirrhosis, chronic. 4. Hyperkalemia, resolved. 5. Chronic hyponatremia, improved. PLAN: At this time, the patient looks clinically dehydrated on examination. Stop all diuretics. Stop nephrotoxic agents. Add NS at 75 mL/h per hour. Encourage oral hydration. I feel like her creatinine will improve tomorrow because she looks clinically dehydrated on exam. Her blood pressure will always be low. Her sodium will always be low and due to the fact that she has underlying hepatorenal syndrome type 2. She will need to continue with sodium bicarbonate tabs even here and even as an outpatient due to chronic metabolic acidosis from liver cirrhosis. She will also need to continue with oral midodrine upon discharge as well as she will chronically be hypotensive due to hepatorenal syndrome type 2. At this time, we will continue IV fluid hydration for now. Get a.m. labs and if her creatinine improves tomorrow, we will discontinue the fluids. We will have to monitor volume status as well as she is clinically volume overloaded or intravascularly volume depleted. MD JIMMY Lovelace/KATELINL /[id number]
[2019-03-26] MEDS: ENOXAPARIN 30 MG/0.3 ML SYR SC SCH (17:21)
[2019-03-27 00:51] VITALS: BP_SYST 109; BP_SYST 110; BP_DIAS 53
[2019-03-27] MEDS: METOCLOPRAMIDE HCL 10 MG/2ML VIAL IV SCH ×3 (01:30→12:25)
[2019-03-27 03:27] LABS: BASOPHILS % 0.5 % (0.0-1.0); EOSINOPHILS # (AUTO) 0.2 (0.0-0.4); EOSINOPHILS % 2.1 % (0.0-6.0); LYMPHOCYTES # (AUTO) 2.6 (1.0-3.2); LYMPHOCYTES % 30.9 % (18.0-39.1); MEAN CORPUSCULAR HEMOGLOBIN 36.1 pg (28-32); MEAN CORPUSCULAR HGB CONC 35.7 g/dL (31-35); MEAN CORPUSCULAR VOLUME 101.1 fL (81-99); MONOCYTES # (AUTO) 1.3 (0.2-0.8); MONOCYTES % 14.9 % (4.4-11.3); NEUTROPHILS # (AUTO) 4.3 (2.1-6.9); NEUTROPHILS % 51.2 % (38.7-80.0); PLATELET COUNT 92 x10e3/uL (140-360); RED BLOOD COUNT 2.77 x10e6/uL (3.6-5.1); RED CELL DISTRIBUTION WIDTH 18.2 % (11.7-14.4)
[2019-03-27] MEDS: OCTREOTIDE ACETATE 0.1 MG/ML 100MCG AMP SQ SCH ×2 (03:34→11:00)
[2019-03-27 03:47] LABS: CALCIUM 7.7 mg/dL (8.4-10.2); CREATININE, SERUM 2.63 mg/dL (0.57-1.11)
[2019-03-27 05:04] VITALS: BP 101/50
[2019-03-27 05:20] LABS: BILIRUBIN,URINE MODERATE (NEGATIVE); CLARITY,URINE CLOUDY (CLEAR); COLOR,URINE YELLOW (YELLOW); KETONES,URINE NEGATIVE (NEGATIVE); LEUKOCYTE ESTERASE ,URINE TRACE (NEGATIVE); NITRITE,URINE NEGATIVE (NEGATIVE); URINE UROBILINOGEN 0.2 mg/dL (0.2 - 1)
[2019-03-27 05:22] LABS: PROTEIN,URINE DIPSTICK 3+ (NEGATIVE)
[2019-03-27 05:41] LABS: BACTERIA,URINE MANY /HPF; EPITHELIAL CELLS,URINE MODERATE /LPF; RBC,URINE >50 /HPF (0-5); WBC,URINE (MAN) >50 /HPF (0-5)
[2019-03-27] MEDS: PANTOPRAZOLE 40 MG 10ML VIAL IV SCH (06:14)
--- NOTE | 2019-03-27 07:18 | NUR ---
PATIENT ASSISTED TO THE RESTROOM AND BACK TO CHAIR, NO COMPLAIN VOICED. ALL PERSONAL ITEMS CLOSE TO PATIENT. CALL LIGHT AT REACH.
[2019-03-27 07:20] VITALS: BP 106/54
[2019-03-27 08:21] VITALS: BP 106/54
[2019-03-27] MEDS: MIDODRINE HCL 5 MG TABLET PO SCH ×2 (08:49→12:25)
[2019-03-27] MEDS: MEGESTROL ACETATE 40 MG TAB PO SCH (10:00)
[2019-03-27] MEDS: SODIUM BICARBONATE 650 MG TAB PO SCH (10:00)
[2019-03-27] MEDS: PENICILLIN V POTASSIUM 500 MG TAB PO SCH ×2 (10:00→12:25)
[2019-03-27] MEDS ORDERED: ONDANSETRON HCL 4 MG ORAL DISINTEGRATING TAB PO PRN (10:45)
[2019-03-27] MEDS ORDERED: MIDODRINE HCL5 MG PO (11:10)
--- NOTE | 2019-03-27 11:16 | NUR ---
EDUCATED ABOUT IMM, SIGNED, FILED IN CHART, WITH COPY LEFT WITH FAMILY AT BEDSIDE.
[2019-03-27 12:11] VITALS: BP 107/54
--- NOTE | 2019-03-27 12:19 | NUR ---
Spoke to pt and son Pablo about home health. They are agreeable. Stated to use any company that takes pt's insurance. Choice letter signed for [facility], [facility], and [facility]. Choice letter placed in chart. copy to pt's son. Referral was faxed to [facility] Yaneth Lawrence, liaison with [facility] was notified of discharge today.
--- NOTE | 2019-03-27 15:25 | NUR ---
PATIENT DISCHARGED HOME. DISCHARGE INSTRUCTIONS, PRESCRIPTIONS, AND FOLLOW UP GIVEN TO PATIENT AND SON, THEY VERBALIZED UNDERSTANDING. IV TO LEFT FOREARM REMOVED WITH TIP INTACT. ALL PERSONAL ITEMS TAKEN WITH PATIENT. LEFT UNIT PER WHEEL CHAIR TO FRONT LOBBY IN STABLE CONDITION.
--- NOTE | 2019-03-27 16:26 | NUR ---
Spoke with Yaneth Lawrence with [facility]. They are unable to accept pt. Referral was forwarded to [facility]
--- NOTE | 2019-03-29 07:50 | Discharge Summary ---
ADMISSION DIAGNOSES: Hyperkalemia, hyponatremia, hepatorenal syndrome, acute renal failure, EtOH cirrhosis, hypotension. DISCHARGE DIAGNOSES: Hyperkalemia; hyponatremia; hepatorenal syndrome; acute renal failure; EtOH cirrhosis; hypotension; Enterococcus faecalis urinary tract infection, present on admission; acute blood loss anemia due to gastrointestinal bleed. HISTORY: Hypertension, hyperlipidemia, GERD, CKD 3, alcoholic cirrhosis. SURGICAL HISTORY: Bilateral tubal ligation, breast biopsy, kidney stone. FAMILY HISTORY: The patient's daughter has diabetes and a stroke. SOCIAL HISTORY: The patient has a history of alcohol abuse. HOSPITAL COURSE: A 73-year-old female with past medical history of cirrhosis and frequent paracentesis, admits with complaints of generalized abdominal pain, described as sharp. She says the pain has been dull for weeks, but became sharp yesterday. Her last paracentesis was on February 03 with 2500 mL pulled off. She has associated nausea and vomiting. On admission, her potassium was 6.4. She was given insulin, D50, Kayexalate combination in the ER. Her sodium was 114 and her GFR was 14, so Nephrology was consulted. Ultrasound of the abdomen showed moderate ascites. CT of the abdomen and pelvis showed proximal small bowel wall edema, cirrhosis with portal hypertension, associated ascites, cholelithiasis. Urine culture came back positive for Enterococcus. The patient was given IV Rocephin. HIDA scan showed filling of the gallbladder excludes acute cystic duct obstruction/acute cholecystitis. The gallbladder EF is undefined as there is no emptying of the gallbladder during the infusion. The absence of the response supports the clinical diagnosis of chronic cholecystitis/gallbladder dyskinesia. The patient's diuretics were initially stopped on admission and she was given IV fluids. Her GFR continued to improve and got back into the 40s. Then, the patient had a paracentesis with 3600 mL pulled off and her diuretics were resumed. Then, the kidney function started to decline once more. Her stool for blood came back positive. So, she had an EGD that showed grade 1 esophageal varices without bleeding, portal hypertensive gastropathy, and gastric ulcer without losing. After speaking with Gastroenterology and Nephrology, Nephrology says the patient will always be hyponatremic and required paracentesis, but per GI recommendation every time we do the paracenteses, it will hurt her kidney. As she is already following [facility] in the [facility], our goal is to get her kidney function better and then discharge her home so she can follow up with them as soon as possible. On the day of discharge, GI and Nephrology has cleared the patient for discharge. She was instructed to follow up with [facility] if this were to occur again as they can help her more due to the resources they have in the [facility] than we can in [place]. The patient understands discharge instructions and agrees to plan. Vital signs stable, the patient afebrile. Dictated by Nessa Bucio NP MD ALEJANDRA Limon/TERESA /[id number]
== END 2019-03-27 15:34 | disposition home health service (06) | DRG 441 ==
LOC: ER 23:43 → ERHOLD 03-15 03:47 → ICU 03-15 04:29 → MED/SURG2 03-17 14:53
PROVIDERS: ADMIT Internal Medicine; ATTEND Internal Medicine
PROC: 30233N1 Transfusion of Nonautologous Red Blood Cells into Peripheral Vein, Percutaneous Approach (ICD-10-PCS; 2019-03-16)
PROC: 0DB68ZX Excision of Stomach, Via Natural or Artificial Opening Endoscopic, Diagnostic (ICD-10-PCS; 2019-03-21)
PROC: 0DB78ZX Excision of Stomach, Pylorus, Via Natural or Artificial Opening Endoscopic, Diagnostic (ICD-10-PCS; 2019-03-21)
PROC: 0W9G30Z Drainage of Peritoneal Cavity with Drainage Device, Percutaneous Approach (ICD-10-PCS; principal; 2019-03-22)
DX: K76.7 Hepatorenal syndrome (principal); N17.0 Acute kidney failure with tubular necrosis; E87.1 Hypo-osmolality and hyponatremia; E44.0 Moderate protein-calorie malnutrition; N39.0 Urinary tract infection, site not specified; D62 Acute posthemorrhagic anemia; K76.6 Portal hypertension; I85.10 Secondary esophageal varices without bleeding; E87.2 Acidosis; K92.2 Gastrointestinal hemorrhage, unspecified; K70.31 Alcoholic cirrhosis of liver with ascites; E86.0 Dehydration; E87.5 Hyperkalemia; Z68.29 Body mass index [BMI] 29.0-29.9, adult; B95.2 Enterococcus as the cause of diseases classified elsewhere; K25.9 Gastric ulcer, unspecified as acute or chronic, without hemorrhage or perforation; E78.5 Hyperlipidemia, unspecified; Z90.710 Acquired absence of both cervix and uterus; D69.6 Thrombocytopenia, unspecified; Z87.442 Personal history of urinary calculi; Z91.19 Patient's noncompliance with other medical treatment and regimen; E87.8 Other disorders of electrolyte and fluid balance, not elsewhere classified; E11.22 Type 2 diabetes mellitus with diabetic chronic kidney disease; I12.9 Hypertensive chronic kidney disease with stage 1 through stage 4 chronic kidney disease, or unspecified chronic kidney disease; R33.9 Retention of urine, unspecified; K31.89 Other diseases of stomach and duodenum; F10.11 Alcohol abuse, in remission; N18.3 Chronic kidney disease, stage 3 (moderate)
CPT/HCPCS: 36415; 43239; 49083; 74176; 74470; 76705; 78227; 80048; 80053; 80076; 81001; 82105; 82140; 82150; 82270; 82550; 82553; 82607; 82728; 82746; 83540; 83690; 83735; 83880; 84100; 84466; 84484; 85014; 85018; 85025; 85045; 85610; 85730; 86850; 86900; 86920; 87086; 87186; 88305; 88312; 93005; 93971; 94640; 96361; 96365; 96374; 97139; 99284; A9537; C1729; J0696; J1650; J1817; J1940; J1956; J2250; J2354; J2405; J2765; J3010; J3430; J7030; J7042; J7070; J7799; P9016; P9047